=== PATIENT | male | born 1925 | race Caucasian/White ===

== ENCOUNTER 2016-02-23 14:56 | Emergency (ER) | payer MEDICARE ==
[~2016-02-23 14:56] MED LIST: ASPIRIN EC81 M1 PO; ASPIRIN81 M4 PO; EYE VITAMIN-MI1 EACH PO; FUROSEMIDE40 M1 PO; LEVOTHYROXINE50 MCG PO; LISINOPRIL40 M1 PO; LISINOPRIL5 M1 PO; METOPROLOL TART25 M1 PO; MIDODRINE HCL2.5 M1 PO; MIRALAX119 GM PO; RESTASIS1 EACH OPH; SPIRONOLACTONE25 M1 PO; SYNTHROID25 MCG PO; VITAMIN B-121000 MC3 PO; VITAMIN D31000 UNI2 PO
[2016-02-23 15:58] LABS: ABSOLUTE BASOPHIL COUNT 0 /CUMM (0.0-0.2); ABSOLUTE EOSINOPHIL COUNT 0.4 /CUMM (0.0-0.7); ABSOLUTE GRANULOCYTE CT 6.5 /CUMM (1.4-6.5); ABSOLUTE LYMPH COUNT 0.6 /CUMM (1.2-3.4); ABSOLUTE MONOCYTE COUNT 0.6 /CUMM (0.10-0.60); BASOPHIL % 0.3 % (0.0-2.0); EOSINOPHIL % 4.7 % (0-5); GRANULOCYTE % 80.6 % (42.2-75.2); HEMATOCRIT 30.9 % (42-52); MEAN CORPUSCULAR HGB 27.4 PG (27.0-31.0); MEAN CORPUSCULAR HGB CONC 32.7 G/DL (33.0-37.0); MEAN CORPUSCULAR VOLUME 83.7 FL (80.0-94.0); MEAN PLATELET VOLUME 6.8 FL (7.4-10.4); PLATELET COUNT 266 /CUMM (130-400); RBC DISTRIBUTION WIDTH 20.2 % (11.5-14.5); RED BLOOD CELL CT 3.69 /CUMM (4.70-6.10); WHITE BLOOD CELL COUNT 8.1 /CUMM (4.8-10.8)
--- NOTE | 2016-02-23 16:01 | ED GENERAL ADULT ---
History of Present Illness General Chief Complaint: General Adult Stated Complaint: SENT IN FOR ABNORMAL BLOOD WORK Source: patient, family, old records Exam Limitations: no limitations Reconcile Medications Aspirin (Aspirin*) 81 MG TAB.CHEW 1 TAB PO DAILY heart health Cholecalciferol (Vitamin D3) 1,000 UNIT TABLET 2,000 IU PO DAILY bones Cyanocobalamin (Vitamin B-12) 1,000 MCG TABLET 1 TAB PO DAILY SUPPLEMENT ( Reported) Cyclosporine (Restasis) 1 EACH DROPERETTE 1 GTT OPH BID EYES (Reported) Levothyroxine Sodium 50 MCG TABLET 1 TAB PO DAILY THYROID Midodrine HCl 2.5 MG TABLET 2 TAB PO 0800,1200,1600 low blood pressure Polyethylene Glycol 3350 (Miralax) 17 GRAM/DOSE POWDER 17 GM PO DAILY constipation Vit A/C/E AC/Znox/Cupric Oxide (Eye Vitamin-Minerals Tablet) 1 EACH TABLET 1 TAB PO DAILY SUPPLEMENT (Reported) Triage Note: PER HAD PARACENTIS 2 DAYS AGO,CALLED BY DR TODAY FOR HIGH POTASSIUM DONE YESTERDAY. EKG AND LABS DONE FROM TRIAGE PT JAUNDICE PER NORM. Triage Nurses Notes Reviewed? 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 Patient receive echocardiogram noted ejection fraction of 50 -60%. Patient was discharged on February 14 in which patient states he was in his normal state of health receive a paracentesis outpatient 2 days ago out up with his primary care Paulo Win MD yesterday received outpatient blood work and was Paulo Win MD call patient today for concerns of significant elevated potassium. Patient currently is asymptomatic denies any fever, chills, abdominal pain nausea vomiting chest pain arm and jaw pain paresthesia (MARY ANN BARGER) Vital Signs & Intake/Output Vital Signs & Intake/Output Vital Signs Date Time Temp Pulse Resp B/P Pulse O2 O2 Flow FiO2 Ox Delivery Rate 02/22 1835 54 20 152/100 100 Room Air 02/22 1611 100 Room Air Room Air 02/22 1611 53 20 100 Room Air 02/22 1512 96.8 20 124/74 Allergies Coded Allergies: NO KNOWN ALLERGIES (02/23/16) (FABY WALKER,DULCE Yepez) Past History Travel History Traveled to [place] past 21 day No Medical History Any Pertinent Medical History? see below for history Neurological: vertigo EENT: cataracts, hearing loss (postop) Cardiovascular: diastolic CHF, hypertension, hyperlipidemia, TR with elevated RV pressure RBBB old antinf [place] by EKG with ? 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 . FH: hepatic cirrhosis BROTHER, ; Cause: Alcoholic cirrhosis. FATHER (fxd neck). , Age 47; Cause: Fall. MOTHER, , Age 70; Cause: Fall. Hx Contributory? No (MAYR ANN BARGER) Review of Systems Review of Systems Constitutional: Reports: no symptoms. EENTM: Reports: no symptoms. Respiratory: Reports: no symptoms. Cardiovascular: Reports: no symptoms. GI: Reports: no symptoms. Genitourinary: Reports: no symptoms. Musculoskeletal: Reports: no symptoms. Skin: Reports: no symptoms. Neurological/Psychological: Reports: no symptoms. Hematologic/Endocrine: Reports: no symptoms. Immunologic/Allergic: Reports: no symptoms. All Other Systems: Reviewed and Negative (MAYR ANN BARGER) Physical Exam Physical Exam General Appearance: no apparent distress, obese Comments: HEENT: Normal EENT exam, extraocular motion intact, no nystagmus. Pupils equally round and reactive to light and accommodation. Nose is atraumatic. External auditory canal and Tympanic membranes clear. Pharynx normal. No swelling or edema. Neck: Supple, no lymphadenopathy, normal range of motion without pain or tenderness Back: Nontender, no CVA tenderness. Cardiovascular: Regular rate and rhythms no murmurs rubs or gallops, normal JVP Respiratory: Chest nontender. No respiratory distress.breath sounds clear to auscultation bilaterally Abdomen: Soft, nontender nondistended, no appreciable organomegaly. Normal bowel sounds. No ascites Extremity: No edema, no calf tenderness to palpation, normal and equal pulses. Neuro: Alert oriented x3, motor sensory normal, cranial nerves II through XII grossly intact. Skin: No appreciable rash on exposed skin, skin is warm and dry. Psych: Mood and affect is normal, memory and judgment is normal. Core Measures ACS in differential dx? Yes CVA/TIA Diagnosis: No Severe Sepsis Present: No Septic Shock Present: No (MARY ANN BARGER) Progress Differential Diagnoses I considered the following diagnoses in my evaluation of the patient: [ Myocardial infarction, electrolyte abnormality, EKG abnormalities,] Diagnostic Imaging: Viewed by Me: Radiology Read. CXR Impression: no acute abnormality, no infiltrates Initial ED EKG: NSR 53 BPM, RBBB Prior EKG: unchanged Comments: PATIENT: EVE SANTILLAN PRESENT AGE: 89 PATIENT ACCOUNT NO: [id number] : [birth year] LOCATION: [facility] ORDERING PHYSICIAN: MAYR ANN GREENE SERVICE DATE: 02/23/16 EXAM TYPE: RAD - XRY-PORTABLE CHEST XRAY EXAMINATION: XR PORTABLE CHEST CLINICAL INFORMATION: Elevated troponin COMPARISON: 02/09/2016 TECHNIQUE: Portable view of the chest was obtained. FINDINGS: Cardiac leads overlie the chest. Low lung volumes. This results in the appearance of a retrocardiac opacity, likely projectional. No definite consolidation. No edema or effusion. No pneumothorax. The cardiomediastinal silhouette remains prominent. Degenerative changes at the shoulders. IMPRESSION: Low lung volumes with no focal abnormality. (MARY ANN BARGER) Plan of Care: Orders Procedure Date/time Status Telemetry/Metal Wire Technician 02/22 1601 Active Add-on Test (ER Only) 02/22 1600 Active MAGNESIUM 02/22 1528 Complete DIRECT BILIRUBIN 02/22 1528 Complete TROPONIN LEVEL 02/22 1509 Complete COMPREHENSIVE METABOLIC PANEL 02/22 1509 Complete CBC WITHOUT DIFFERENTIAL 02/22 1509 Complete EKG 02/22 1500 Active Laboratory Tests 02/23/16 1528: Anion Gap 13, Estimated GFR 36 L, BUN/Creatinine Ratio 28.3 H, Glucose 105 H, Calcium 8.3 L, Magnesium 2.3, Total Bilirubin 0.5, Direct Bilirubin 0.5 H, AST 26, ALT 35, Alkaline Phosphatase 89, Troponin I 0.19 *H, Total Protein 6.0 L, Albumin 3.1 L, Globulin 2.9, Albumin/Globulin Ratio 1.1, CBC w Diff NO MAN DIFF REQ, RBC 3.69 L, MCV 83.7, MCH 27.4, RDW 20.2 H, MPV 6.8 L, Gran % 80.6 H, Lymphocytes % 7.4 L, Monocytes % 7.0, Eosinophils % 4.7, Basophils % 0.3, Absolute Granulocytes 6.5, Absolute Lymphocytes 0.6 L, Absolute Monocytes 0.6, Absolute Eosinophils 0.4, Absolute Basophils 0, PUBS MCHC 32.7 L 02/23/16 1512: Total Bilirubin Cancelled, Direct Bilirubin Cancelled, AST Cancelled, ALT Cancelled, Alkaline Phosphatase Cancelled, Total Protein Cancelled, Albumin Cancelled Patient presents to the emergency room with no symptoms has no changes in EKG no concerns of ischemia on EKG potassium was normal, patient had a 0.19 troponin. I discussed patient and EKG findings and labs with cardiology is Dk Pollock MD in which since patient has no symptoms no EKG changes and chronic elevated troponins that he can be safely discharged and follow up in office. I discussed disposition and plan with Dr. Torres who agrees. Upon discharge patient looks well no apparent distress and denies any cardiovascular symptoms at this time. Patient was on court monitor and noted to be normal sinus rhythm It is noted through old records the patient has a chronic history of elevated troponin Patient's all blood work was unremarkable compared to previous blood work\\ Chest x-ray was unremarkable patient has no symptoms upon discharge patient was strongly advised to follow up with primary care doctor and wardrobe manager as directed Patient was given copies of blood work for follow-up (LON GREENE,MARY ANN) Departure Departure Disposition: HOME OR SELF CARE Condition: Stable Clinical Impression Primary Impression: Elevated troponin Referrals: CHAYITO WALKER,PAULO Valles (PCP/Family) Additional Instructions: As discussed if symptoms worsen or if he develop any new concerning symptom return to emergency room immediately. Follow-up with your primary care doctor tomorrow. Please provide them with the labs printed out for you. Departure Forms: Customer Survey General Discharge Information (MARY ANN BARGER) PA/BOX HINGE AND LOCK ATTACHER Co-Sign Statement Statement: ED Attending supervision documentation- [X] I saw and evaluated the patient. I have also reviewed all the pertinent lab results and diagnostic results. I agree with the findings and the plan of care as documented in the PA's/BOX HINGE AND LOCK ATTACHER's documentation. [] I have reviewed the ED Record and agree with the PA's/BOX HINGE AND LOCK ATTACHER's documentation. [] Additions or exceptions (if any) to the PAs/BOX HINGE AND LOCK ATTACHER's note and plan are summarized below: [] (FABY WALKER,DULCE Yepez) Critical Care Note Critical Care Note Critical Care Time: non-applicable (MARY ANN BARGER)
--- NOTE | 2016-02-23 16:52 | RADIOLOGY REPORT ---
EXAMINATION: XR PORTABLE CHEST CLINICAL INFORMATION: Elevated troponin COMPARISON: 02/09/2016 TECHNIQUE: Portable view of the chest was obtained. FINDINGS: Cardiac leads overlie the chest. Low lung volumes. This results in the appearance of a retrocardiac opacity, likely projectional. No definite consolidation. No edema or effusion. No pneumothorax. The cardiomediastinal silhouette remains prominent. Degenerative changes at the shoulders. IMPRESSION: Low lung volumes with no focal abnormality.
[2016-02-23 18:35] VITALS: BP 152/100
== END 2016-02-23 18:41 ==
LOC: ERH 14:56
PROVIDERS: Emergency Medicine
DX: R77.8 Other specified abnormalities of plasma proteins (principal); N18.9 Chronic kidney disease, unspecified; I10 Essential (primary) hypertension; I50.9 Heart failure, unspecified
CPT/HCPCS: 93005; 93010

== ENCOUNTER 2016-05-29 16:34 | Emergency (ER) | payer MEDICARE, OTHER ==
[~2016-05-29] VITALS: Ht 152.4 cm; Wt 74.4 kg
[2016-05-29] MEDS ORDERED: CLOBETASOL PROP15 G1 TOP (18:27)
[2016-05-29] MEDS ORDERED: LEVOTHYROXINE100 MC1 PO (18:27)
[2016-05-29] MEDS ORDERED: DOXYCYCLINE HY100 M2 PO (18:27)
[2016-05-29] MEDS ORDERED: BETAMETHASONE D15 G1 TOP (18:28)
--- NOTE | 2016-05-29 19:20 | ED SKIN/ALLERGY COMPLAINT ---
History of Present Illness General Chief Complaint: Hand or Wrist Injury Stated Complaint: PT HANDS ARE BURNING, ITCHING FOR 2DYS Source: patient Exam Limitations: no limitations Vital Signs & Intake/Output Vital Signs & Intake/Output Vital Signs Date Time Temp Pulse Resp B/P Pulse O2 O2 Flow FiO2 Ox Delivery Rate 05/29 1654 98.8 82 20 119/80 98 Room Air Allergies Coded Allergies: No Known Allergies (05/29/16) Reconcile Medications Betamethasone Dipropionate 0.05 % OINT...G. 1 AYAAN TOP BID WOUNDS (Reported) Cholecalciferol (Vitamin D3) 1,000 UNIT TABLET 2,000 IU PO DAILY bones Clobetasol Propionate 0.05 % OINT...G. 1 AYAAN TOP BID WOUNDS (Reported) apply to affected area(s) Cyanocobalamin (Vitamin B-12) 1,000 MCG TABLET 1 TAB PO DAILY SUPPLEMENT ( Reported) Diclofenac Sodium (Voltaren) 1 % GEL..GRAM. 1 GM TOP 4 TIMES/DAY HAND PAIN/ RASH apply to affected area(s) Doxycycline Hyclate 100 MG CAPSULE 1 CAP PO BID WOUNDS (Reported) Levothyroxine Sodium 100 MCG TABLET 1 TAB PO DAILY THYROID (Reported) Triamcinolone Acetonide 0.1 % OINT...G. 1 AYAAN TOP BID PRN RASH apply to affected area(s) 0.1% Vit A/C/E AC/Znox/Cupric Oxide (Eye Vitamin-Minerals Tablet) 1 EACH TABLET 1 TAB PO DAILY SUPPLEMENT (Reported) Triage Note: TRIAGE: PT TO ER C/C BILATERAL HAND PAIN AND REDNESS X COUPLE WEEKS, PAIN IS INTERMITTENT. ALSO REPORTS ITCHING X 2 DAYS. Triage Nurses Notes Reviewed? yes HPI: Patient presents for evaluation of a bilateral redness and pain of the hands that began a week to 10 days ago. Patient denies any known inciting event or exposure. Rash has been constant and nothing seems to make it better. It is located over the knuckles and the second and third fingers of both hands. It becomes painful intermittently. Past History Travel History Traveled to [place] past 21 day No Medical History Any Pertinent Medical History? see below for history Neurological: vertigo EENT: cataracts, hearing loss (postop) Cardiovascular: diastolic CHF, hypertension, hyperlipidemia, TR with elevated RV pressure RBBB old antinf [place] by EKG with ? 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 . FH: hepatic cirrhosis BROTHER, ; Cause: Alcoholic cirrhosis. FATHER (fxd neck). , Age 47; Cause: Fall. MOTHER, , Age 70; Cause: Fall. Hx Contributory? No Review of Systems Review of Systems Constitutional: Reports: no symptoms. EENTM: Reports: no symptoms. Respiratory: Reports: no symptoms. Cardiovascular: Reports: no symptoms. GI: Reports: no symptoms. Genitourinary: Reports: no symptoms. Musculoskeletal: Reports: no symptoms. Skin: Reports: see HPI. Neurological/Psychological: Reports: no symptoms. Hematologic/Endocrine: Reports: no symptoms. Immunologic/Allergic: Reports: no symptoms. All Other Systems: Reviewed and Negative Physical Exam Physical Exam General Appearance: SEE BELOW Comments: Gen.: Well-nourished, well-developed, no acute respiratory distress. Head: Normocephalic, atraumatic. Eyes: Normal inspection bilaterally Ears: Normal inspection bilaterally Nose: Normal inspection Throat/mouth : Moist mucosa Neck: Supple, full range of motion, no goiter Heart: Regular rate and rhythm, no murmurs rubs or gallops Lungs: Clear to auscultation bilaterally with normal air entry Chest: Nontender Back: Normal range of motion Abdomen: Soft, nontender, nondistended, normal bowel sounds Extremities: Normal range of motion grossly, equal radial pulses, no cyanosis clubbing or edema Neurologic: Cranial nerves grossly intact, speech is clear Skin: warm and dry, no apparent rashes, hyperemia of the hands with mild warmth in a symmetrical pattern over the dorsum of the hands Psychiatric: Calm, cooperative, no apparent delusions or hallucinations Progress Differential Diagnosis: contact dermatitis, SUN EXPOSURE, SUN SENSITIVITY SECONDARY TO ANTIBIOTICS Plan of Care: Avoid sun exposure, Voltaren and triamcinolone creams. PCP follow-up. Comments: Given the very symmetrical nature of this rash (the rash is a mirror image on both hands) so I suspect environmental exposure or contact dermatitis.The patient is currently taking doxycycline placing him at increased risk of sun sensitivity. He has no discomfort with movement of the knuckle so I doubt arthritis. He has been on doxycycline so I doubt infection. Plan steroid cream and anti-inflammatory ointment. Departure Departure Disposition: HOME OR SELF CARE Condition: Stable Clinical Impression Primary Impression: Rash of hands Referrals: CHAYITO WALKER,MIMI Valles (PCP/Family) Additional Instructions: Steroid cream and diclofenac ointment as prescribed. Follow-up with your primary care doctor on Saturday for reevaluation. Return if any concerns or sudden worsening. Departure Forms: Customer Survey General Discharge Information Prescriptions: Current Visit Scripts Triamcinolone Acetonide 1 AYAAN TOP BID PRN RASH #1 TUBE apply to affected area(s) 0.1% Diclofenac Sodium (Voltaren) 1 GM TOP 4 TIMES/DAY #1 TUBE apply to affected area(s)
[2016-05-29] MEDS ORDERED: VOLTAREN100 GM TOP (19:35)
[2016-05-29] MEDS ORDERED: TRIAMCINOLONE A15 G3 TOP (19:35)
[2016-05-29 19:44] VITALS: BP 117/77
== END 2016-05-29 19:46 ==
LOC: ERH 16:34
DX: R21 Rash and other nonspecific skin eruption (principal)

== ENCOUNTER 2016-06-21 15:48 | Inpatient (IN) | payer MEDICARE, OTHER ==
[~2016-06-21] VITALS: Ht 152.4 cm; Wt 76.2 kg
[~2016-06-21 15:48] MED LIST changes: +BETAMETHASONE D15 G1 TOP; +CLOBETASOL PROP15 G1 TOP; +DOXYCYCLINE HY100 M2 PO; +LEVOTHYROXINE100 MC1 PO; +TRIAMCINOLONE A15 G3 TOP; +VOLTAREN100 GM TOP
--- NOTE | 2016-06-21 15:57 | ED GENERAL ADULT ---
History of Present Illness General Chief Complaint: Lower Extremity Problems Stated Complaint: LEG SWELLING, CONCERN FOR DVT Source: patient, family Exam Limitations: no limitations Vital Signs & Intake/Output Vital Signs & Intake/Output Vital Signs Date Time Temp Pulse Resp B/P B/P Pulse O2 O2 Flow FiO2 Mean Ox Delivery Rate 06/21 1629 Room Air 06/21 1614 98.6 85 18 120/62 98 Room Air Allergies Coded Allergies: No Known Allergies (05/29/16) Reconcile Medications Betamethasone Dipropionate 0.05 % OINT...G. 1 AYAAN TOP BID WOUNDS (Reported) Cholecalciferol (Vitamin D3) 1,000 UNIT TABLET 2,000 IU PO DAILY bones Clobetasol Propionate 0.05 % OINT...G. 1 AYAAN TOP BID WOUNDS (Reported) apply to affected area(s) Cyanocobalamin (Vitamin B-12) 1,000 MCG TABLET 1 TAB PO DAILY SUPPLEMENT ( Reported) Diclofenac Sodium (Voltaren) 1 % GEL..GRAM. 1 GM TOP 4 TIMES/DAY HAND PAIN/ RASH apply to affected area(s) Doxycycline Hyclate 100 MG CAPSULE 1 CAP PO BID WOUNDS (Reported) Levothyroxine Sodium 100 MCG TABLET 1 TAB PO DAILY THYROID (Reported) Minocycline HCl 100 MG CAPSULE 1 CAP PO BID ANTIBIOTIC (Reported) Silver Sulfadiazine (Silvadene) 1 % CREAM..G. 1 AYAAN TOP DAILY WOUNDS ON LEGS (Reported) apply to affected area(s) Triamcinolone Acetonide 0.1 % OINT...G. 1 AYAAN TOP BID PRN RASH apply to affected area(s) 0.1% Vit A/C/E AC/Znox/Cupric Oxide (Eye Vitamin-Minerals Tablet) 1 EACH TABLET 1 TAB PO DAILY SUPPLEMENT (Reported) Triage Nurses Notes Reviewed? yes Onset: Abrupt Duration: unknown duration Timing: unknown HPI: 06/21/16 6 PM 89-year-old male presents to the emergency department complaining of severe left lower extremity pain. According to the patient and his [id number] he's had severe pain to his left lower extremity over the past 48 hours. He's had ongoing lower extremity pain and also blistering lesions to the lower extremities for some time. He recently completed a course of doxycycline. He's also had chronically elevated troponins. He also has a history of a nonsustained wide complex tachycardia. He does admit to some intermittent shortness of breath and tremors and chills today. The onset of the symptoms was abrupt, the duration has been for 48 hours, the severity is significant as his symptoms required him to come to the emergency department for care. He is not a robust historian and so some of the history was appreciated from Dr. Golden's prior note listed below PRIOR NOTE BY DR GOLDEN BELOW APPRECIATED: 89-year-old male with numerous comorbidities, including HTN/vertigo/[place] (deaf on right, hearing aid on left)/diastolic CHF/HLD/CKD/anemia (no transfusions of PRBC in [facility] computer)/hypoT4/nonsustained wide complex tachycardia with periodic bradycardia (Toprol held)/remote history of Lyme disease, with past history of mild alcohol and recurrent ascites over the past year which has been attributed to CHF based on prior ascitic taps, which revealed SAAG > 1.1 with BF protein > 2.5. Previous ascitic cytology has been negative. There is no history of SBP. 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 *11/20/2004: Liver biopsy of "mass"- fibrous tissue with pigmented macrophages, consistent with old hemorrhage and adjacent blood clot. *There are no records of any EGD regarding potential varices. The patient has required periodic large volume abdominal taps for relief of his symptoms. He also has intermittent elevated troponins. Family history significant for 2 brothers dying of alcohol-related disease. There is no family history of any additional GI diseases or GI malignancy. The patient is followed as an outpatient for GI by Dr. Pelayo. The patient's diuretics were limited by CKD. 12/22/2015: Echocardiogram- Normal left ventricular systolic function 55-60%. No segmental wall motion abnormalities. No significant pericardial effusion. Moderate left ventricular hypertrophy *suggesting infiltrative disease. Biatrial enlargement. Mild MR. Moderate TR. Elevated RV pressure 40 mm Hg (previous reversal of flow in hepatic vein, suggesting significant TR). Uncertain rythym. Cannot comment on diastolic function. 12/22/2015: RUQ sono- Limited exam. *There are 2 focal liver lesions. The larger appears unchanged since 12/14/14. The smaller in the left lobe of the liver was either not present or not well demonstrated Nodular liver with ascites raises the possibility of cirrhosis. Clinical circumstances will determine appropriate subsequent management. Consider serial ultrasound to assess for stability if no intervention is undertaken Past History Medical History Any Pertinent Medical History? 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 & adjacent blood clot Renal: chronic kidney disease Musculoskeletal: falls Psychiatric: NONE Endocrine: NONE Blood Disorders: anemia Cancer(s): NONE STUMMEL SELECTOR/Reproductive: NONE Other Medical Hx: Hx Lyme disease History of MRSA: No History of VRE: No History of CDIFF: No Surgical History Surgical History: cataract removal Psychosocial History Who do you live with Family Services at Home None What is your primary language Chinese Family History Family History, If Any: BROTHER (EtOH cirrhosis). . FH: hepatic cirrhosis BROTHER, ; Cause: Alcoholic cirrhosis. FATHER (fxd neck). , Age 47; Cause: Fall. MOTHER, , Age 70; Cause: Fall. Hx Contributory? No Review of Systems Review of Systems Constitutional: Reports: chills. Denies: fever. EENTM: Reports: no symptoms. Respiratory: Reports: short of breath. Cardiovascular: Denies: chest pain. GI: Denies: abdominal pain. Genitourinary: Reports: no symptoms. Musculoskeletal: Reports: see HPI. Skin: Reports: see HPI. Neurological/Psychological: Reports: no symptoms. Hematologic/Endocrine: Reports: bruising. Physical Exam Physical Exam General Appearance: alert, awake, anxious, moderate distress Head: atraumatic, normal appearance Eyes: Bilateral: normal appearance, PERRL, EOMI. Ears, Nose, Throat: normal pharynx, normal ENT inspection Neck: normal inspection, supple Respiratory: no respiratory distress, decreased breath sounds Cardiovascular: irregularly irregular Peripheral Pulses: 2+ dorsalis pedis (R), 2+ dorsalis pedis (L) Gastrointestinal: soft, non-tender (pleurex cath RLQ) Back: decreased range of motion Extremities: pedal edema, swelling, tenderness Neurologic/Psych: no motor/sensory deficits, awake, alert, oriented x 3 Skin: rash (HAND AND LEGS) Comments: His examination is significant for bilateral lower extremity edema. He also has angry erythema to both hands and the lower extremities. He has blistering lesions to both lower extremities and there is significant shiny erythema to the left lower extremity extending into the ankle. According to the [id number] the redness and swelling to the left lower extremity is much more pronounced over the last 48 hours and he's been complaining of severe pain and inability to walk. Ultrasound and arterial studies of the left lower extremity are pending. He does have palpable bilateral dorsalis pedis pulses - there are faint. Capillary refill is equal in both lower extremities and both lower extremities are normal in temperature when I palpate them. Core Measures ACS in differential dx? Yes CVA/TIA Diagnosis: No Severe Sepsis Present: No Septic Shock Present: No Progress Differential Diagnoses I considered the following diagnoses in my evaluation of the patient: [DVT, acute arterial occlusion, cellulitis, necrotizing fasciitis, osteomyelitis, acute coronary syndrome, atrial fibrillation] Plan of Care: Orders Procedure Date/time Status Heart Healthy Diet 06/22 B Active ED Holding Orders 06/21 184 Active Admit to inpatient 06/21 184 Active Vital Signs 06/21 184 Active Code Status 06/21 184 Active Add-on Test (ER Only) 06/21 183 Active BLOOD CULTURE 06/21 183 Active EKG 06/21 1812 Active US-EXT BILAT VENOUS DOPPLER 06/21 165 Active US-DUPLEX SCAN LOWER EXT ARTER 06/21 165 Active TROPONIN LEVEL 06/21 165 Complete COMPREHENSIVE METABOLIC PANEL 06/21 165 Complete CBC WITHOUT DIFFERENTIAL 06/21 1653 Complete Current Medications Sig/Bennie Start time Last Medication Dose Stop Time Status Admin Ampicillin Sodium/ 1,500 MG ONCE ONE 06/21 1844 UNir Sulbactam Sodium 06/21 191 (Unasyn) Sodium Chloride 100 ML (Normal Saline 0.9%) Laboratory Tests 06/21/16 1709: Anion Gap 10, Estimated GFR 30 L, BUN/Creatinine Ratio 26.7 H, Glucose 132 H, Calcium 7.7 L, Total Bilirubin 0.6, AST 21, ALT 36, Alkaline Phosphatase 107, Troponin I 0.32 *H, Total Protein 5.7 L, Albumin 2.3 L, Globulin 3.4, Albumin/ Globulin Ratio 0.7 L, CBC w Diff NO MAN DIFF REQ, RBC 3.66 L, MCV 80.8, MCH 25.8 L, RDW 20.8 H, MPV 6.4 L, Gran % 91.9 H, Lymphocytes % 2.1 L, Monocytes % 4.5, Eosinophils % 0.8, Basophils % 0.7, Absolute Granulocytes 8.5 H, Absolute Lymphocytes 0.2 L, Absolute Monocytes 0.4, Absolute Eosinophils 0.1 , Absolute Basophils 0.1, PUBS MCHC 32.0 L Microbiology 06/21 1838 BLOOD: Blood Culture - ORD 06/21 1838 BLOOD: Blood Culture - ORD Initial ED EKG: AFIB, WIDE COMPLEX TACHYCARDIA Prior EKG: changed (RHYTHM) Departure Departure Disposition: STILL A PATIENT Condition: Stable Clinical Impression Primary Impression: Cellulitis Secondary Impressions: Atrial fibrillation, Elevated troponin Referrals: CHAYITO WALKER,MIMI Valles (PCP/Family) Departure Forms: Customer Survey General Discharge Information Admission Note Spoke With: RENATA DAO MD Documentation of Exam: Documentation of any treatments & extenuating circumstances including Concerns Regarding Discharge (functional status, medication knowledge or non-compliance, living conditions, etc.) that warrant an admission rather than observation: [The patient needs admission for IV antibiotics, cardiology consultation, serial troponins, follow-up of the ultrasound and arterial studies of the lower extremity] Critical Care Note Critical Care Note Critical Care Time: non-applicable
[2016-06-21] MEDS ORDERED: SILVADENE20 GM TOP (16:38)
[2016-06-21] MEDS ORDERED: MINOCYCLINE HC100 M1 PO (16:38)
[2016-06-21 17:20] LABS: ABSOLUTE BASOPHIL COUNT 0.1 /CUMM (0.0-0.2); ABSOLUTE EOSINOPHIL COUNT 0.1 /CUMM (0.0-0.7); ABSOLUTE GRANULOCYTE CT 8.5 /CUMM (1.4-6.5); ABSOLUTE LYMPH COUNT 0.2 /CUMM (1.2-3.4); ABSOLUTE MONOCYTE COUNT 0.4 /CUMM (0.10-0.60); BASOPHIL % 0.7 % (0.0-2.0); EOSINOPHIL % 0.8 % (0-5); HEMATOCRIT 29.6 % (42-52); MEAN CORPUSCULAR HGB 25.8 PG (27.0-31.0); MEAN CORPUSCULAR VOLUME 80.8 FL (80.0-94.0); MEAN PLATELET VOLUME 6.4 FL (7.4-10.4); PLATELET COUNT 214 /CUMM (130-400); RBC DISTRIBUTION WIDTH 20.8 % (11.5-14.5); RED BLOOD CELL CT 3.66 /CUMM (4.70-6.10); WHITE BLOOD CELL COUNT 9.2 /CUMM (4.8-10.8)
--- NOTE | 2016-06-21 17:26 | RADIOLOGY REPORT ---
EXAMINATION: XR PORTABLE CHEST CLINICAL INFORMATION: Anasarca. COMPARISON: Chest x-ray 04/11/2016. TECHNIQUE: Portable frontal view of the chest was obtained. FINDINGS: The lungs are hypoinflated, without focal airspace consolidation. No pleural effusions or pneumothoraces are identified. Cardiomediastinal contours are stable and there is stable prominence of the cardiac silhouette, without overt pulmonary edema. Soft tissues are unremarkable. No acute osseous abnormality is identified. IMPRESSION: No acute pulmonary process. Pulmonary hypoinflation and bronchovascular crowding. Stable prominence of the cardiac silhouette, without overt pulmonary edema.
[2016-06-21 17:34] LABS: GRANULOCYTE % 91.9 % (42.2-75.2)
--- NOTE | 2016-06-21 20:03 | ULTRASOUND REPORT ---
EXAMINATION: US TRIPLEX OF LOWER EXTREMITIES, BILATERAL CLINICAL INFORMATION: Edema. Pain. Swelling. Inflammation. Skin changes. COMPARISON: None TECHNIQUE: Color-flow triplex imaging with spectral analysis and compression Doppler were performed on the lower extremities. FINDINGS: Respiratory variation, normal compression and augmented flow are noted throughout the lower extremities. The visualized common femoral vein, superficial femoral vein, profunda femoral vein, popliteal vein and midcalf peroneal and posterior tibial venous segments show no evidence of deep venous thrombosis. There is no Pearson's cyst. There is subcutaneous edema both lower extremities. IMPRESSION: Normal triplex scan without evidence of deep venous thrombosis involving the lower extremities.
--- NOTE | 2016-06-21 20:17 | History & Physical ---
TABITHA GAYLE MD 06/21/16 2017: General Information and HPI MD Statement: I have seen and personally examined EVE SANTILLAN and documented this H&P. The patient is a 89 year old M who presented with a patient stated chief complaint of lower extremity swelling and pain. Source of Information: patient, old records Exam Limitations: poor historian History of Present Illness: Mr. 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 Due to the fact that patient is a poor historian, some history is obtained from patient's daughter-in -law who is at bedside. Of note, patient lives with his daughter and there is minimal/no communication between the daughter and [id number], thus some recent history is difficult to obtain. The patient is noted to have recent increase in bilateral lower extremity swelling and new-onset left lower extremity erythema, mostly located overlaying the medial malleolus, that is associated with significant, 10/10 pain. Patient does have chronic wounds of bilateral legs which were previously attributed to bullous pemphigoid and Eve notes that he frequently wakes up with his sheets saturated due to leakage of serous fluid from these chronic wounds. Noted associated symptoms prior to admission included shortness of breath, chills, tremors, bilateral hand erythema with blistering and lower extremity blisters which were precently treated with doxycycline. Past surgical history is significant for cataract removal. Family history is significant for a brother with EOTH cirrhosis. Patient denied previous smoking, admits to occasional alcohol use and denied illicit drug use. He lives at home with his and ambulates with the use of 2 canes. Patient previously followed Dr. Chinchilla as his professional fee coder but now sees another professional fee coder. He had previously tried clobetasol, doxycycline and minocycline for his bullous pemphigoid. He also follows with Dr. 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 Allergies/Medications Allergies: Coded Allergies: No Known Allergies (05/29/16) Home Med list Betamethasone Dipropionate 0.05 % OINT...G. 1 AYAAN TOP BID WOUNDS (Reported) Cholecalciferol (Vitamin D3) 1,000 UNIT TABLET 2,000 IU PO DAILY bones Clobetasol Propionate 0.05 % OINT...G. 1 AYAAN TOP BID WOUNDS (Reported) apply to affected area(s) Cyanocobalamin (Vitamin B-12) 1,000 MCG TABLET 1 TAB PO DAILY SUPPLEMENT ( Reported) Diclofenac Sodium (Voltaren) 1 % GEL..GRAM. 1 GM TOP 4 TIMES/DAY HAND PAIN/ RASH apply to affected area(s) Doxycycline Hyclate 100 MG CAPSULE 1 CAP PO BID WOUNDS (Reported) Levothyroxine Sodium 100 MCG TABLET 1 TAB PO DAILY THYROID (Reported) Minocycline HCl 100 MG CAPSULE 1 CAP PO BID ANTIBIOTIC (Reported) Silver Sulfadiazine (Silvadene) 1 % CREAM..G. 1 AYAAN TOP DAILY WOUNDS ON LEGS (Reported) apply to affected area(s) Triamcinolone Acetonide 0.1 % OINT...G. 1 AYAAN TOP BID PRN RASH apply to affected area(s) 0.1% Vit A/C/E AC/Znox/Cupric Oxide (Eye Vitamin-Minerals Tablet) 1 EACH TABLET 1 TAB PO DAILY SUPPLEMENT (Reported) Compliance With Home Meds: UNKNOWN Past History Travel History Traveled to [place] past 21 day No Medical History Neurological: vertigo EENT: cataracts, hearing loss (postop) Cardiovascular: diastolic CHF, hypertension, hyperlipidemia, TR with elevated RV pressure RBBB old antinf NV by EKG with ? 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 & adjacent blood clot Renal: chronic kidney disease Musculoskeletal: falls Psychiatric: NONE Endocrine: NONE Blood Disorders: anemia Cancer(s): NONE IMPORT DISPATCHER/Reproductive: NONE Other Medical Hx: Hx Lyme disease History of MRSA: No History of VRE: No History of CDIFF: No Surgical History Surgical History: cataract removal Past Family/Social History Family History Relations & Conditions if any BROTHER (EtOH cirrhosis). . FH: hepatic cirrhosis BROTHER, ; Cause: Alcoholic cirrhosis. FATHER (fxd neck). , Age 47; Cause: Fall. MOTHER, , Age 70; Cause: Fall. Psychosocial History Where do you live? Home Who Do You Live With? spouse (dtr), child Services at Home: None Primary Language: Slovenian ETOH Use: denies use Illicit Drug Use: denies illicit drug use Living Will? no Power of Dairy Processing Supervisor/HCP? no Functional Ability ADLs Independent: dressing, eating, toileting, bathing. Ambulation: cane IADLs Independent: shopping, housework, finances, food prep, telephone, transportation , medication admin. Sexual History Sexually Active No Employment History Employment Retired Review of Systems Review of Systems Constitutional: Reports: chills, malaise. Denies: fever. EENTM: Denies: visual changes, nasal congestion. Cardiovascular: Reports: peripheral edema. Denies: chest pain, palpitations. Respiratory: Reports: short of breath. Denies: cough, sputum production. GI: Reports: vomiting (Vomited during interview). Denies: abdominal pain, constipation, diarrhea. Genitourinary: Denies: dysuria. Musculoskeletal: Reports: muscle pain (Left lower extremity >R). Skin: Reports: change in skin color, dryness, erythema, lesions, rash. Neurological/Psychological: Denies: confusion, headache. Hematologic/Endocrine: Denies: bleeding. Immunologic/Allergic: Denies: splenectomy. All Other Systems: Reviewed and Negative Exam & Diagnostic Data Last 24 Hrs of Vital Signs/I&O Vital Signs Date Time Temp Pulse Resp B/P B/P Pulse O2 O2 Flow FiO2 Mean Ox Delivery Rate 06/21 2200 97 Room Air 06/21 2136 97.7 56 18 112/56 96 06/21 2049 Room Air 06/22 2047 96.4 74 18 127/61 97 Room Air 06/21 1833 82 18 129/59 98 Room Air 06/21 1629 Room Air 06/21 1614 98.6 85 18 120/62 98 Room Air Intake & Output 06/22 0800 06/22 0000 06/21 1600 Intake Total 100 Output Total Balance 100 Intake, Oral 100 Patient 168 lb Weight Weight Reported by Patient Measurement Method Physical Exam General Appearance Alert, Oriented X3, Cooperative, No Acute Distress Skin Bilateral hands and bilateral lower extremities from cueva down with erythema and denuded blisters draining serous fluid. Left medial malleolus severe erythema Skin Temp/Moisture Exam: Warm/Dry HEENT Atraumatic, PERRLA, EOMI, Dry mucous membranes Neck Supple, No JVD Lymphatic Cervical nl Cardiovascular Irregularly irregular Lungs Normal Air Movement, Decreased breath sounds bilateral bases Abdomen +BS x 4, nontender to palpation Neurological Normal Speech, Strength at 5/5 X4 Ext, Normal Tone, Slightly lethargic during examination and questioning Extremities No Clubbing, No Cyanosis, 2-3+ bilateral lower extremity edema Vascular Pulses Symmetrical Last 24 Hrs of Labs/Jerel: Laboratory Tests 06/21/16 2310: Lactic Acid Pending, Troponin I Pending 06/21/16 1830: Lactic Acid 1.2 06/21/16 1709: Anion Gap 10, Estimated GFR 30 L, BUN/Creatinine Ratio 26.7 H, Glucose 132 H, Calcium 7.7 L, Total Bilirubin 0.6, AST 21, ALT 36, Alkaline Phosphatase 107, Troponin I 0.32 *H, Total Protein 5.7 L, Albumin 2.3 L, Globulin 3.4, Albumin/ Globulin Ratio 0.7 L, TSH &T3 &Free T4 Intrp Pending, CBC w Diff NO MAN DIFF REQ, RBC 3.66 L, MCV 80.8, MCH 25.8 L, RDW 20.8 H, MPV 6.4 L, Gran % 91.9 H , Lymphocytes % 2.1 L, Monocytes % 4.5, Eosinophils % 0.8, Basophils % 0.7, Absolute Granulocytes 8.5 H, Absolute Lymphocytes 0.2 L, Absolute Monocytes 0.4, Absolute Eosinophils 0.1, Absolute Basophils 0.1, PUBS MCHC 32.0 L 06/21/16 1100: Troponin I Cancelled Microbiology 06/22 2007 BLOOD: Blood Culture - RECD 06/21 183 BLOOD: Blood Culture - RECD Diagnostic Data EKG Results Atrial fibrillation, HR 74 bpm. CXR Results IMPRESSION: No acute pulmonary process. Pulmonary hypoinflation and bronchovascular crowding. Stable prominence of the cardiac silhouette, without overt pulmonary edema. Other Results Venous doppler: IMPRESSION: Normal triplex scan without evidence of deep venous thrombosis involving the lower extremities. Assessment/Plan Assessment: Mr. 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 Associated symptoms included shortness of breath, chills, and tremors. In the ED: Vital signs showed T 98.6, HR 85, RR 18, BP 120/62 and O2 saturation of 98% on room air. Labs were significant for WBC 9.2 with 91.9% granulocytes, H &H 9.4/29.6 (normocytic), Plt 214, Na 134, K 4.7, Cl 109, HCO3 16, BUN/cre 56/ 2.1 (baseline cre 1.8-2.2), Glu 132, lactate 1.2, trop 0.32. CXR showed pulmonary hypoinflation and bronchovascular crowding. Prominence of cardiac silhouette without overt edema. EKG showed atrial fibrillation with HR 74 bpm (confirmed with Dr. Nghia MD.) Patient is admitted to the telemetry floor and the following is the management: 1. Left lower extremity erythema and swelling * DDx includes cellulitis vs worsening bullous pemphigoid * Due to use of clobetasol, patient at risk for overlaying infection of chronic wounds * Patient given IV unasyn in the ED, we will continue this daily * Follow up cultures, monitor for fevers * Wound consult in AM * Consider derm consult for bullous pemphigoid * Elevate legs * Tylenol 650 mg PO Q6P for mild pain * Continue heparin SC for DVTP * LE DVT ruled out with negative doppler * Normal saline at 50 cc/h 2. New onset atrial fibrillation with normal heart rate * New-onset atrial fibrillation as compared to previous EKG showing NSR * Dr. Bebo MD consulted and confirmed EKG irregularly irregular; suggested starting patient on IV heparin drip (started after stool guiac tested and found to be negative) * Patient's HR well controlled, monitor on playground monitor * Follow up thyroid studies * Cardio consult in AM * F/U echocardiogram 3. Elevated troponins * Likely represent demand ischemia in setting of atrial fibrillation * Trend trops/EKG x 3 (11 pm, 6 am) * Cardio consult in AM * Continuous telemetry monitoring for arrythmias * Echocardiogram to assess cardiac function in setting of new onset atrial fibrillation 4. Stage 3 B CKD * Chronic renal dysfunction as noted on prior admission and prior lab studies * Continue NS at 50 cc/h * Monitor electrolytes and BEP daily FULL CODE DVTP: IV heparin drip Heart Healthy Diet Mild pain pathway As Ranked By This Provider Problem List: 1. Cellulitis 2. Atrial fibrillation 3. Rash of hands 4. Hypothyroid 5. Chronic kidney disease 6. CHF (congestive heart failure) 7. Chronic anemia 8. Renal insufficiency 9. HTN (hypertension) 10. Blister Core Measures/Miscellaneous Acute Coronary Syndrome ACS Diagnosis: No Cerebrovascular Accident CVA/TIA Diagnosis: No Congestive Heart Failure CHF Diagnosis: No Venous Thromboembolism VTE Risk Factors: Acute medical illness, Age > 40, CHF or Resp failure [facility] prophylaxis d/t: LE Deformity, LE Edema No VTE Pharm Prophylaxis d/t: No contraindications VTE Diagnosis: No VTE Type: NONE VTE Confirmed by (Test): NONE Severe Sepsis Severe Sepsis Present: No Septic Shock Septic Shock Present: No Miscellaneous Documentation Attending Case Discussed With: RENATA DAO MD Primary Care Physician: MIMI STRATTON MD Patient sees these Specialists Dr. Mcleod, dermatology Dr. Pelayo, gastroenterology Dr. Stratton, PCP Dr. Rodriguez, cardiology Level of Patient Care: Telemetry CATHLEEN WALKER,[facility] 06/22/16 0153: Resident Review Statement Resident Statement: examined this patient, discussed with graduate internship, agreed with graduate internship Other Findings: Problem List: * ? 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 Patient has already received IV 10 mg Cardizem and PO 60mg Cardizem in the ED. Start Cardizem 30 mg Q6 for now and can titrate as needed. * Trops EKG x 3 * Start Unasyn for possible cellulitis. Blood cultures. Wound consult. NS at 50 ml/hr x 2 bags * Please consult Dermatology in the AM regarding further management of bullous pemphigoid. * Continue home LT4 * Pain Management: Tylenol Q6P * DVT PPx: Heparin gtt * Code Status: Full Code. This information was given by the [id number]. Please confirm with daughter in the AM, if there has been any change in his code status. There seems to be some issues in the family dynamic. The patient is currently living with his daughter, who is estranged from the rest of the family. All his care is currently being transferred to other doctors, so the [id number] who is present at the time of this interview, was not able to give us uptodate information for the last 2 months. 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 Patient denies any complaints. Patient has chronic bilateral lower extremity wounds secondary to bullous pemphigoid. Vitals: Afebrile, HR, RR, blood pressure, O2 saturation in acceptable range. On exam: A O 3, cooperative, no acute distress, bilateral lower extremity and upper extremity edema and mild edema with denuded skin and blisters draining serous fluid, left lower extremity has worse redness. neck supple, mucosa moist, no focal neurological deficit, CVS: S1-S2, irregular RS: Clear to auscultate bilaterally. Abdomen: Soft, NT, ND, bowel sounds present, catheter present, no signs of inflammation or cellulitis. Labs: WBC 9.2, neutrophil 91%, hemoglobin 9.4, hematocrit 29.6, platelet 214, chloride 109, bicarbonate 16, BUN 56, creatinine 2.1, glucose 132, troponin 0.32 , albumin 2.3 EKG ? A. fib CXR: No acute pulmonary process. Pulmonary hypoinflation and bronchovascular crowding. Stable prominence of the cardiac silhouette, without overt pulmonary edema. Bilateral lower extremity Doppler:Normal triplex scan without evidence of deep venous thrombosis involving the lower extremities. A and P Patient comes with the mild worsening of left lower extremity swelling, erythematous on appearance, mild left shift, probably secondary cellulitis with underlying bullous pemphigoid. Patient's troponins elevated, has mild non-gap acidosis, unchanged creatinine and BUN. He was found to have A. fib, which is new finding as compared to previous EKGs probably precipitated by cellulitis. + Questionable left lower extremity cellulitis secondary to bullous pemphigoid + New-onset A. fib + Elevated troponin rule out ACS + History of recurrent ascites, CKD, cirrhosis, heart failure, HTN, HLD - Admit to telemetry - Continue heparin - If increased HR then consider starting Cardizem - Continue Unasyn for cellulitis - Blood culture - Trend troponin, serial EKGs - Adequate pain control - Trend lactate - Cardiology consult in a.m. - Wound care consult in a.m. - Check TSH
[2016-06-21 21:37] VITALS: BP 112/56
--- NOTE | 2016-06-22 07:01 | Admission Certification ---
Admission Certification Certification Statement - As attending physician, I certify that at the time of - admission, based on clinical presentation, severity of - symptoms, need for further diagnostic testing and - therapeutic interventions, and risk of adverse outcomes - without in-hospital treatment, in my clinical assessment, - this patient requires an acute hospital stay for a minimum - of two nights or longer. I have also considered psychsocial - factors such as support system, advanced age, financial - issues, cognitive issues, and failed out-patient treatments, - past re-admission history, safety of patient, and lack of - compliance as applicable. Specific rationale supporting this admission is: Possible cellulitis left lower extremity, elevated troponin, new-onset A. fib
[2016-06-22 07:53] LABS: ABSOLUTE BASOPHIL COUNT 0 /CUMM (0.0-0.2); ABSOLUTE EOSINOPHIL COUNT 0 /CUMM (0.0-0.7); ABSOLUTE GRANULOCYTE CT 9.8 /CUMM (1.4-6.5); ABSOLUTE LYMPH COUNT 0.5 /CUMM (1.2-3.4); ABSOLUTE MONOCYTE COUNT 0.5 /CUMM (0.10-0.60); BASOPHIL % 0 % (0.0-2.0); EOSINOPHIL % 0.3 % (0-5); HEMATOCRIT 28.6 % (42-52); MEAN CORPUSCULAR HGB CONC 31.8 G/DL (33.0-37.0); MEAN CORPUSCULAR VOLUME 81.6 FL (80.0-94.0); MEAN PLATELET VOLUME 6.6 FL (7.4-10.4); PLATELET COUNT 215 /CUMM (130-400); RBC DISTRIBUTION WIDTH 20.9 % (11.5-14.5); RED BLOOD CELL CT 3.51 /CUMM (4.70-6.10); WHITE BLOOD CELL COUNT 10.8 /CUMM (4.8-10.8)
[2016-06-22 08:20] VITALS: BP 108/52
--- NOTE | 2016-06-22 08:23 | ULTRASOUND REPORT ---
EXAMINATION: US-LEFT LOW EXTR ARTERIAL DOP CLINICAL INFORMATION: 89-year-old male with decreased dorsalis pedis pulse. Evaluate for PVD. COMPARISON: None TECHNIQUE: Real-time ultrasound and Doppler techniques (integrating B-mode 2-D vascular images, Doppler spectral analysis and color flow Doppler imaging) were utilized to interrogate the lower extremities. FINDINGS: Left lower extremity: Common femoral artery: 116 cm/sec; triphasic waveform Superficial femoral artery proximal: 101 cm/sec; triphasic waveform Superficial femoral artery mid portion: 32 cm/sec; monophasic waveform Superficial femoral artery distal: 48 cm/sec; monophasic waveform Profunda artery: 95 cm/sec; triphasic waveform Popliteal artery: 33 cm/sec; monophasic waveform Posterior tibial artery: 29 cm/sec; monophasic waveform Anterior tibial artery: 53 cm/sec; monophasic waveform Dorsalis pedis artery: 35 cm/sec; monophasic waveform ADDITIONAL FINDINGS: None. IMPRESSION: Findings suggest moderate peripheral arterial disease. There are abnormal waveforms and decreased peak systolic velocities involving the mid superficial femoral artery, popliteal artery and below the knee vessels. Greater sensitivity and specificity can be obtained with pre-and post exercise PVRs with AFUA calculations. Also consider dedicated CTA for further anatomical detail.
[2016-06-22 09:07] LABS: GRANULOCYTE % 90.6 % (42.2-75.2)
[2016-06-22 09:35] LABS: PTT 109 SEC (25-37)
--- NOTE | 2016-06-22 10:52 | Cons- Wound Care ---
General Information and HPI Consulting Request Date of Consult: 06/22/16 Requested By: MOE JACKSON MD Reason for Consult: Bilateral lower extremity ulcers present on admission bilateral History of Present Illness: Patient is an 89-year-old gentleman with multiple medical problems including CHF cardiac ascites bullous pemphigoid who was admitted because of increasing leg edema and weeping lower extremity ulcers. He's been treated for bullous pemphigoid to which these ulcers have been attributed. Duplex venous ultrasound was negative. Arterial Ultrasound suggest complicating peripheral vascular disease. Patient is noted to have gram-negative violetta bacteremia Allergies/Medications Allergies: Coded Allergies: No Known Allergies (05/29/16) Home Med List: Betamethasone Dipropionate 0.05 % OINT...G. 1 AYAAN TOP BID WOUNDS (Reported) Cholecalciferol (Vitamin D3) 1,000 UNIT TABLET 2,000 IU PO DAILY bones Clobetasol Propionate 0.05 % OINT...G. 1 AYAAN TOP BID WOUNDS (Reported) apply to affected area(s) Cyanocobalamin (Vitamin B-12) 1,000 MCG TABLET 1 TAB PO DAILY SUPPLEMENT ( Reported) Diclofenac Sodium (Voltaren) 1 % GEL..GRAM. 1 GM TOP 4 TIMES/DAY HAND PAIN/ RASH apply to affected area(s) Doxycycline Hyclate 100 MG CAPSULE 1 CAP PO BID WOUNDS (Reported) Levothyroxine Sodium 100 MCG TABLET 1 TAB PO DAILY THYROID (Reported) Minocycline HCl 100 MG CAPSULE 1 CAP PO BID ANTIBIOTIC (Reported) Silver Sulfadiazine (Silvadene) 1 % CREAM..G. 1 AYAAN TOP DAILY WOUNDS ON LEGS (Reported) apply to affected area(s) Triamcinolone Acetonide 0.1 % OINT...G. 1 AYAAN TOP BID PRN RASH apply to affected area(s) 0.1% Vit A/C/E AC/Znox/Cupric Oxide (Eye Vitamin-Minerals Tablet) 1 EACH TABLET 1 TAB PO DAILY SUPPLEMENT (Reported) Past History Travel History Traveled to [place] past 21 day No Medical History Blood Transfusion Hx: No Neurological: vertigo EENT: cataracts, hearing loss (postop) Cardiovascular: diastolic CHF, hypertension, hyperlipidemia, TR with elevated RV pressure RBBB old antinf NV by EKG with ? 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 & adjacent blood clot Renal: chronic kidney disease Musculoskeletal: falls, BULLOUS PEMPHIGOID Psychiatric: NONE Endocrine: NONE Blood Disorders: anemia Cancer(s): NONE TOOLS PROGRAMMER/Reproductive: NONE Other Medical Hx: Hx Lyme disease Surgical History Surgical History: cataract removal Family History Relations & Conditions If Any: BROTHER (EtOH cirrhosis). . FH: hepatic cirrhosis BROTHER, ; Cause: Alcoholic cirrhosis. FATHER (fxd neck). , Age 47; Cause: Fall. MOTHER, , Age 70; Cause: Fall. Psychosocial History Where Do You Live? Home Who Do You Live With? spouse (dtr), child Services at Home: None Primary Language: Greenlandic Smoking Status: Never Smoked ETOH Use: denies use Illicit Drug Use: denies illicit drug use Living Will? no Power of Shade Cutter/HCP? no Functional Ability ADLs Independent: dressing, eating, toileting, bathing. Ambulation: cane IADLs Independent: shopping, housework, finances, food prep, telephone, transportation , medication admin. Employment History Employment: Retired Exam & Diagnostic Data Vital Signs and I&O Vital Signs Result Date Time Pulse Ox 95 06/22 0820 B/P 108/52 06/22 0820 O2 Delivery Room Air 06/22 0820 Temp 97.7 06/22 0820 Pulse 82 06/22 0820 Resp 20 06/22 0820 Intake & Output 06/22 0000 06/21 1600 06/21 0800 Intake Total 100 Output Total Balance 100 Intake, Oral 100 Patient 168 lb Weight Weight Reported by Patient Measurement Method There are multiple ulcers over the dorsal surfaces of both hands with predominantly yellow fill there is edema of both ankles distal pulses are unable to be palpated there is significant edema and discomfort over the left ankle there are multiple ulcers over both lower extremities which have predominantly yellow fill there is periwound erythema more prominent over the left leg. It is no undermining exposed bone Assessment/Plan Impression/Plan: 89-year-old gentleman with multiple medical problems admitted with increasing lower extremity edema and weeping bilateral leg ulcers present on admission. These are likely multifactorial due to underlying bullous pemphigoid complicated by venous insufficiency and edema and probable peripheral vascular disease. Recommend leg elevation wound cleansing and nonadherent dressing. Recommend dermatologic follow-up as well as vascular surgery evaluation of abnormal arterial ultrasound. Suggest infectious disease evaluation for source of gram- negative violetta bacteremia in view of history of abdominal ascites and abdominal Pleurx catheter placement in April Consult Acknowledgment - Thank you for your consult request.
--- NOTE | 2016-06-22 12:51 | PN- Att Addend ---
Attending Addendum Attending Brief Note Patient seen and examined, denies any current complaints. Patient was originally admitted with bilateral lower extremity pain and found to be in new onset A. fib. Upon cardiology evaluation, he was found to have sinus rhythm with multiple PVCs/PACs but not atrial fibrillation. Vital Signs Date Time Temp Pulse Resp B/P B/P Pulse O2 O2 Flow FiO2 Mean Ox Delivery Rate 06/22 1052 Room Air 06/22 0820 97.7 82 20 108/52 95 Room Air 06/21 2200 97 Room Air 06/21 2137 97.7 56 18 112/56 96 06/21 2050 Room Air 06/21 2048 96.4 74 18 127/61 97 Room Air 06/21 1833 82 18 129/59 98 Room Air 06/21 1629 Room Air 06/21 1614 98.6 85 18 120/62 98 Room Air on exam; aox3, nad. cv; s1,s2, rrr resp; clear abd; distended, nontender, bowel sounds positive. ext; wrapped in Memo wrap. Laboratory Tests 06/22 06/22 06/21 06/21 0819 0650 2310 1830 Chemistry Sodium (137 - 145 mmol/L) 137 Potassium (3.5 - 5.1 mmol/L) 4.6 Chloride (98 - 107 mmol/L) 112 H Carbon Dioxide (22 - 30 mmol/L) 15 L Anion Gap (5 - 16) 10 BUN (9 - 20 mg/dL) 58 H Creatinine (0.7 - 1.2 mg/dL) 2.3 H Estimated GFR (>60 ml/min) 27 L BUN/Creatinine Ratio (7 - 25 %) 25.2 H Lactic Acid (0.7 - 2.1 mmol/L) 1.3 1.2 Troponin I (<0.11 ng/ml) 0.40 *H 0.41 *H Coagulation APTT (25 - 37 SEC) 109 *H Hematology CBC w Diff NO MAN DIFF REQ WBC (4.8 - 10.8 /CUMM) 10.8 RBC (4.70 - 6.10 /CUMM) 3.51 L Hgb (14.0 - 18.0 G/DL) 9.1 L Hct (42 - 52 %) 28.6 L MCV (80.0 - 94.0 FL) 81.6 MCH (27.0 - 31.0 PG) 26.0 L RDW (11.5 - 14.5 %) 20.9 H Plt Count (130 - 400 /CUMM) 215 MPV (7.4 - 10.4 FL) 6.6 L Gran % (42.2 - 75.2 %) 90.6 H Lymphocytes % (20.5 - 51.1 %) 4.4 L Monocytes % (1.7 - 9.3 %) 4.7 Eosinophils % (0 - 5 %) 0.3 Basophils % (0.0 - 2.0 %) 0 L Absolute Granulocytes (1.4 - 6.5 /CUMM) 9.8 H Absolute Lymphocytes (1.2 - 3.4 /CUMM) 0.5 L Absolute Monocytes (0.10 - 0.60 /CUMM) 0.5 Absolute Eosinophils (0.0 - 0.7 /CUMM) 0 Absolute Basophils (0.0 - 0.2 /CUMM) 0 PUBS MCHC (33.0 - 37.0 G/DL) 31.8 L 06/21 1709 Chemistry Sodium (137 - 145 mmol/L) 134 L Potassium (3.5 - 5.1 mmol/L) 4.7 Chloride (98 - 107 mmol/L) 109 H Carbon Dioxide (22 - 30 mmol/L) 16 L Anion Gap (5 - 16) 10 BUN (9 - 20 mg/dL) 56 H Creatinine (0.7 - 1.2 mg/dL) 2.1 H Estimated GFR (>60 ml/min) 30 L BUN/Creatinine Ratio (7 - 25 %) 26.7 H Glucose (65 - 99 mg/dL) 132 H Calcium (8.4 - 10.2 mg/dL) 7.7 L Total Bilirubin (0.2 - 1.3 mg/dL) 0.6 AST (17 - 59 U/L) 21 ALT (21 - 72 U/L) 36 Alkaline Phosphatase (< 127 U/L) 107 Troponin I (<0.11 ng/ml) 0.32 *H Total Protein (6.3 - 8.2 g/dL) 5.7 L Albumin (3.5 - 5.0 g/dL) 2.3 L Globulin (1.9 - 4.2 gm/dL) 3.4 Albumin/Globulin Ratio (1.1 - 2.2 %) 0.7 L TSH &T3 &Free T4 Intrp (0.27 - 4.20 uIU/mL) 1.560 Hematology CBC w Diff NO MAN DIFF REQ WBC (4.8 - 10.8 /CUMM) 9.2 RBC (4.70 - 6.10 /CUMM) 3.66 L Hgb (14.0 - 18.0 G/DL) 9.4 L Hct (42 - 52 %) 29.6 L MCV (80.0 - 94.0 FL) 80.8 MCH (27.0 - 31.0 PG) 25.8 L RDW (11.5 - 14.5 %) 20.8 H Plt Count (130 - 400 /CUMM) 214 MPV (7.4 - 10.4 FL) 6.4 L Gran % (42.2 - 75.2 %) 91.9 H Lymphocytes % (20.5 - 51.1 %) 2.1 L Monocytes % (1.7 - 9.3 %) 4.5 Eosinophils % (0 - 5 %) 0.8 Basophils % (0.0 - 2.0 %) 0.7 Absolute Granulocytes (1.4 - 6.5 /CUMM) 8.5 H Absolute Lymphocytes (1.2 - 3.4 /CUMM) 0.2 L Absolute Monocytes (0.10 - 0.60 /CUMM) 0.4 Absolute Eosinophils (0.0 - 0.7 /CUMM) 0.1 Absolute Basophils (0.0 - 0.2 /CUMM) 0.1 PUBS MCHC (33.0 - 37.0 G/DL) 32.0 L A/P; 89 y/o M with pmh sig for HTN, HLD, diastolic congestive heart failure, non -sustained wide complex tachycardia with periodic bradycardia, history of Lyme disease, CKD, chronic anemia, recurrent ascites previously attributed to heart failure, bullous pemphigoid, vertigo has a Pleurx cath in his abdomen for frequent drainage of ascites who was admitted with bilateral lower extremity pain and found to be initially Wart-Off to be atrial fibrillation but after cardiology evaluation this is sinus rhythm with multiple PVCs and PACs. Lower externally venous Doppler negative, he does have peripheral arterial disease on duplex ultrasound arterial. Patient now has gram-negative bacteremia. According to his history and physical , he was treated with doxycycline recently. At this point we will obtain abdominal ultrasound, if there is significant ascites then we will drain him. We will likely send the fluid culture. Please obtain urine analysis and urine culture. Please obtain ID consult. From cardiology standpoint, no anticoagulation needed as this is not an A. fib. Dermatology consult as an outpatient. Please resume the rest of the home medications. DVT px: Start the patient on heparin subcutaneous after stopping the heparin drip. PT eval.
--- NOTE | 2016-06-22 13:14 | Cons- Cardiology ---
General Information and HPI Consulting Request Date of Consult: 06/22/16 Requested By: MOE JACKSON MD Reason for Consult: CHF, possible afib Source of Information: patient, old records History of Present Illness: This is an 89-year-old male with a past medical history of recurrent ascites requiring recurrent large-volume paracentesis now with chronic drain in place, heart failure with preserved ejection fraction and concern for cardiac amyloidosis, renal insufficiency, bullous pemphigoid, hypertension, hyperlipidemia, and NSVT who presents to [facility] with a chief complaint of increased lower extremity pain with swelling. The patient is a somewhat limited historian. He denies increased shortness of breath but does have some chronic intermittent dyspnea prior to regular ascites drainage via the indwelling catheter by visiting nursing services. He denies any palpitations or chest pain. Denies headache, slurring of speech, or subjective fever. He is noted to have a gram-negative rods growing on blood cultures. Denies any chills. There was some concern for atrial fibrillation on his ECG and telemetry. Allergies/Medications Allergies: Coded Allergies: No Known Allergies (05/29/16) Home Med List: Betamethasone Dipropionate 0.05 % OINT...G. 1 AYAAN TOP BID WOUNDS (Reported) Cholecalciferol (Vitamin D3) 1,000 UNIT TABLET 2,000 IU PO DAILY bones Clobetasol Propionate 0.05 % OINT...G. 1 AYAAN TOP BID WOUNDS (Reported) apply to affected area(s) Cyanocobalamin (Vitamin B-12) 1,000 MCG TABLET 1 TAB PO DAILY SUPPLEMENT ( Reported) Diclofenac Sodium (Voltaren) 1 % GEL..GRAM. 1 GM TOP 4 TIMES/DAY HAND PAIN/ RASH apply to affected area(s) Doxycycline Hyclate 100 MG CAPSULE 1 CAP PO BID WOUNDS (Reported) Levothyroxine Sodium 100 MCG TABLET 1 TAB PO DAILY THYROID (Reported) Minocycline HCl 100 MG CAPSULE 1 CAP PO BID ANTIBIOTIC (Reported) Silver Sulfadiazine (Silvadene) 1 % CREAM..G. 1 AYAAN TOP DAILY WOUNDS ON LEGS (Reported) apply to affected area(s) Triamcinolone Acetonide 0.1 % OINT...G. 1 AYAAN TOP BID PRN RASH apply to affected area(s) 0.1% Vit A/C/E AC/Znox/Cupric Oxide (Eye Vitamin-Minerals Tablet) 1 EACH TABLET 1 TAB PO DAILY SUPPLEMENT (Reported) Current Medications: Current Medications Sig/Bennie Start time Last Medication Dose Route Stop Time Status Admin Acetaminophen 650 MG Q6P PRN 06/21 2245 AC PO Acetaminophen 0 .STK-MED ONE 06/21 1705 DC PO Acetaminophen 650 MG ONCE ONE 06/21 1700 DC 06/21 PO 06/21 1701 1712 Ampicillin Sodium/ 1,500 MG Q12H 06/22 0800 AC 06/22 Sulbactam Sodium IV 0836 Sodium Chloride 100 ML Ampicillin Sodium/ 0 .STK-MED ONE 06/21 1924 DC Sulbactam Sodium .ROUTE Ampicillin Sodium/ 1,500 MG ONCE ONE 06/21 1845 DC 06/21 Sulbactam Sodium IV 06/21 1914 2020 Sodium Chloride 100 ML Aspirin 0 .STK-MED ONE 06/21 1823 DC PO Aspirin 325 MG ONCE ONE 06/21 1815 DC / PO 06/21 1816 1825 Heparin Sodium 25,000 UNIT Q24H 06/22 0145 AC 06/22 (Porcine) IV 0150 Sodium Chloride 500 ML Heparin Sodium 25,000 UNIT Q24H / 2300 DC (Porcine) IV Sodium Chloride 500 ML Heparin Sodium 5,000 UNIT Q8 06/21 2200 DC 06/21 (Porcine) SC 2147 Hydromorphone HCl 0.5 MG QAM PRN 06/21 2130 CAN IV Levothyroxine Sodium 0.1 MG DAILY AC 06/22 0700 AC 06/22 PO 0623 Oxycodone/ 0 .STK-MED ONE 06/21 1823 DC Acetaminophen PO Oxycodone/ 1 TAB ONCE ONE 06/21 1815 DC 05/ Acetaminophen PO / 1816 1825 Sodium Chloride 1,000 ML .Q20H / 2115 DC 05/ IV 06/23 1314 2146 Trimethobenzamide HCl 200 MG ONCE ONE 06/21 2100 DC IM 06/21 2101 Review of Systems Review of Systems: As per above HPI. The remainder of the 10 point review of systems was otherwise negative. Past History Travel History Traveled to [place] past 21 day No Medical History Blood Transfusion Hx: No Neurological: vertigo EENT: cataracts, hearing loss (postop) Cardiovascular: diastolic CHF, hypertension, hyperlipidemia, TR with elevated RV pressure RBBB old antinf HI by EKG with ? 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 . FH: hepatic cirrhosis BROTHER, ; Cause: Alcoholic cirrhosis. FATHER (fxd neck). , Age 47; Cause: Fall. MOTHER, , Age 70; Cause: Fall. Psychosocial History Where Do You Live? Home Who Do You Live With? spouse (dtr), child Services at Home: None Primary Language: Ethiopian Smoking Status: Never Smoked ETOH Use: denies use Illicit Drug Use: denies illicit drug use Living Will? no Power of Manga Artist/HCP? no Functional Ability ADLs Independent: dressing, eating, toileting, bathing. Ambulation: cane IADLs Independent: shopping, housework, finances, food prep, telephone, transportation , medication admin. Employment History Employment: Retired ECHO Results (as available) Report: Left radical ejection fraction 45-50%, moderate concentric left ventricular hypertrophy, sooner normal left ventricular filling pattern consistent with elevated left atrial pressure, left ventricular texture may suggest amyloid, left atrium mildly dilated, hepatic vein reversal of flow suggesting significant tricuspid regurgitation, right radical systolic pressure probably under calculated at 37 mmHg and trace pericardial effusion Exam & Diagnostic Data Vital Signs and I&O Vital Signs Date Time Temp Pulse Resp B/P B/P Pulse O2 O2 Flow FiO2 Mean Ox Delivery Rate 06/22 1052 Room Air 06/22 0820 97.7 82 20 108/52 95 Room Air 06/21 2200 97 Room Air 06/217 97.7 56 18 112/56 96 06/21 2049 Room Air 06/22 2047 96.4 74 18 127/61 97 Room Air 06/21 1833 82 18 129/59 98 Room Air 06/21 1629 Room Air 06/21 1614 98.6 85 18 120/62 98 Room Air Intake & Output 06/22 0806/22 0000 06/21 0806/21 0000 Intake Total 696 100 Output Total 300 Balance 396 100 Intake, IV 556 Intake, Oral 140 100 Output, Urine 300 Patient 168 lb 168 lb Weight Weight Reported by Patient Measurement Method Physical Exam: General: no apparent distress. Alert. Eyes: No obvious scleral icterus. HEENT: no JVD Cardiovascular: Normal intensity S1/S2. One out of 6 systolic murmur Respiratory: Mildly decreased air entry without rales Abdomen: distended without guarding, abdominal catheter in place (right) Musculoskeletal: 1+ bilateral lower extremity edema Skin: Warm, stasis changes noted, ulcerations noted with dressings in place Neurologic: No gross focal deficits noted. Labs/Jerel Results: Laboratory Tests 06/22 06/22 06/21 06/21 0819 0650 2310 1830 Chemistry Sodium (137 - 145 mmol/L) 137 Potassium (3.5 - 5.1 mmol/L) 4.6 Chloride (98 - 107 mmol/L) 112 H Carbon Dioxide (22 - 30 mmol/L) 15 L Anion Gap (5 - 16) 10 BUN (9 - 20 mg/dL) 58 H Creatinine (0.7 - 1.2 mg/dL) 2.3 H Estimated GFR (>60 ml/min) 27 L BUN/Creatinine Ratio (7 - 25 %) 25.2 H Lactic Acid (0.7 - 2.1 mmol/L) 1.3 1.2 Troponin I (<0.11 ng/ml) 0.40 *H 0.41 *H Coagulation APTT (25 - 37 SEC) 109 *H Hematology CBC w Diff NO MAN DIFF REQ WBC (4.8 - 10.8 /CUMM) 10.8 RBC (4.70 - 6.10 /CUMM) 3.51 L Hgb (14.0 - 18.0 G/DL) 9.1 L Hct (42 - 52 %) 28.6 L MCV (80.0 - 94.0 FL) 81.6 MCH (27.0 - 31.0 PG) 26.0 L RDW (11.5 - 14.5 %) 20.9 H Plt Count (130 - 400 /CUMM) 215 MPV (7.4 - 10.4 FL) 6.6 L Gran % (42.2 - 75.2 %) 90.6 H Lymphocytes % (20.5 - 51.1 %) 4.4 L Monocytes % (1.7 - 9.3 %) 4.7 Eosinophils % (0 - 5 %) 0.3 Basophils % (0.0 - 2.0 %) 0 L Absolute Granulocytes (1.4 - 6.5 /CUMM) 9.8 H Absolute Lymphocytes (1.2 - 3.4 /CUMM) 0.5 L Absolute Monocytes (0.10 - 0.60 /CUMM) 0.5 Absolute Eosinophils (0.0 - 0.7 /CUMM) 0 Absolute Basophils (0.0 - 0.2 /CUMM) 0 PUBS MCHC (33.0 - 37.0 G/DL) 31.8 L 06/21 06/21 1709 1100 Chemistry Sodium (137 - 145 mmol/L) 134 L Potassium (3.5 - 5.1 mmol/L) 4.7 Chloride (98 - 107 mmol/L) 109 H Carbon Dioxide (22 - 30 mmol/L) 16 L Anion Gap (5 - 16) 10 BUN (9 - 20 mg/dL) 56 H Creatinine (0.7 - 1.2 mg/dL) 2.1 H Estimated GFR (>60 ml/min) 30 L BUN/Creatinine Ratio (7 - 25 %) 26.7 H Glucose (65 - 99 mg/dL) 132 H Calcium (8.4 - 10.2 mg/dL) 7.7 L Total Bilirubin (0.2 - 1.3 mg/dL) 0.6 AST (17 - 59 U/L) 21 ALT (21 - 72 U/L) 36 Alkaline Phosphatase (< 127 U/L) 107 Troponin I (<0.11 ng/ml) 0.32 *H Cancelled Total Protein (6.3 - 8.2 g/dL) 5.7 L Albumin (3.5 - 5.0 g/dL) 2.3 L Globulin (1.9 - 4.2 gm/dL) 3.4 Albumin/Globulin Ratio (1.1 - 2.2 %) 0.7 L TSH &T3 &Free T4 Intrp (0.27 - 4.20 uIU/mL) 1.560 Hematology CBC w Diff NO MAN DIFF REQ WBC (4.8 - 10.8 /CUMM) 9.2 RBC (4.70 - 6.10 /CUMM) 3.66 L Hgb (14.0 - 18.0 G/DL) 9.4 L Hct (42 - 52 %) 29.6 L MCV (80.0 - 94.0 FL) 80.8 MCH (27.0 - 31.0 PG) 25.8 L RDW (11.5 - 14.5 %) 20.8 H Plt Count (130 - 400 /CUMM) 214 MPV (7.4 - 10.4 FL) 6.4 L Gran % (42.2 - 75.2 %) 91.9 H Lymphocytes % (20.5 - 51.1 %) 2.1 L Monocytes % (1.7 - 9.3 %) 4.5 Eosinophils % (0 - 5 %) 0.8 Basophils % (0.0 - 2.0 %) 0.7 Absolute Granulocytes (1.4 - 6.5 /CUMM) 8.5 H Absolute Lymphocytes (1.2 - 3.4 /CUMM) 0.2 L Absolute Monocytes (0.10 - 0.60 /CUMM) 0.4 Absolute Eosinophils (0.0 - 0.7 /CUMM) 0.1 Absolute Basophils (0.0 - 0.2 /CUMM) 0.1 PUBS MCHC (33.0 - 37.0 G/DL) 32.0 L Diagnostic Data EKG Results tracing was personally reviewed and shows likely sinus rhythm with diminutiveP- waves and PACs, IVCD CXR Results IMPRESSION: No acute pulmonary process. Pulmonary hypoinflation and bronchovascular crowding. Stable prominence of the cardiac silhouette, without overt pulmonary edema. Other Results telemetry tracings were personally reviewed and shows sinus rhythm with PACs and interventricular conduction delay venous Doppler IMPRESSION: Normal triplex scan without evidence of deep venous thrombosis involving the lower extremities. Assessment/Plan Assessment/Plan 1. Bullous pemphigoid with cellulitis and bacteremia 2. 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 Chronic renal insufficiency 4. Chronically elevated troponin 5. Chronic anemia 6. History of Nonsustained wide complex tachycardia with periods of bradycardia on metoprolol There was initially concern for atrial fibrillation but on careful review of the ECGs and associated telemetry strips the patient appears to have regular small P waves with frequent PACs as opposed to true atrial fibrillation. A similar finding was found on an outpatient Holter monitor in January of 2016. At this point I would discontinue intravenous heparin. Continue with intermittent drainage of his ascites via the indwelling abdominal catheter as needed. The patient has a chronic troponin elevation and further troponins do not need to be checked as he has no evidence of acute coronary syndrome. An echocardiogram was already performed and I will review those images. He appears to be at his baseline from a cardiac standpoint. He is on intravenous antibiotics for the bacteremia. Star Pollock MD [facility] Consult Acknowledgment - Thank you for your consult request.
--- NOTE | 2016-06-22 15:16 | PN- Housestaff ---
Subjective Follow-up For: New onset A. fib Bilateral lower extremity pain and cellulitis gram-negative bacteremia Mild acute on chronic renal insufficiency Subjective: This morning patient is alert, awake and oriented. He is currently on IV heparin drip for new onset A. fib. He denies any chest pain, discomfort, dizziness or lightheadedness, palpitations, abdominal pain, nausea, vomiting. He is complaining of left lower extremity pain. He has dressings on bilateral lower extremities and on both hands. Review of Systems Constitutional: Reports: see HPI. Objective Last 24 Hrs of Vital Signs/I&O Vital Signs Date Time Temp Pulse Resp B/P B/P Pulse O2 O2 Flow FiO2 Mean Ox Delivery Rate 06/22 1052 Room Air 06/22 0820 97.7 82 20 108/52 95 Room Air 06/21 2200 97 Room Air 06/21 2137 97.7 56 18 112/56 96 06/21 2050 Room Air 06/21 2048 96.4 74 18 127/61 97 Room Air 06/21 1833 82 18 129/59 98 Room Air 06/21 1629 Room Air 06/21 1614 98.6 85 18 120/62 98 Room Air Intake & Output 06/22 1600 06/22 0800 06/22 0000 Intake Total 880 696 100 Output Total 200 300 Balance 680 396 100 Intake, IV 400 556 Intake, Oral 480 140 100 Output, Urine 200 300 Patient 168 lb 168 lb Weight Weight Reported by Patient Measurement Method Physical Exam General Appearance: Alert, Oriented X3, Cooperative, No Acute Distress Cardiovascular: tachycardia Lungs: Normal Air Movement Abdomen: No Tenderness, firm and tense, abdominal catheter in place on right side Neurological: Normal Speech, Sensation Intact, Cranial Nerves 3-12 NL Extremities: bandages intact bilateral lower extremities. Left lower extremity tender on palpation. Bandages intact both hands Current Medications: Current Medications Sig/Bennie Start time Last Medication Dose Route Stop Time Status Admin Acetaminophen 650 MG Q6P PRN 06/21 2245 AC PO Acetaminophen 0 .STK-MED ONE 06/21 1705 DC PO Acetaminophen 650 MG ONCE ONE 06/21 1700 DC 06/21 PO 06/21 1701 1712 Ampicillin Sodium/ 1,500 MG Q12H 06/22 0800 AC 06/22 Sulbactam Sodium IV 0836 Sodium Chloride 100 ML Ampicillin Sodium/ 0 .STK-MED ONE 06/21 1924 DC Sulbactam Sodium .ROUTE Ampicillin Sodium/ 1,500 MG ONCE ONE 06/21 1845 DC 06/21 Sulbactam Sodium IV 06/21 191 2020 Sodium Chloride 100 ML Aspirin 0 .STK-MED ONE 06/21 1823 DC PO Aspirin 325 MG ONCE ONE 06/21 1815 DC 06/21 PO 06/21 181 1825 Heparin Sodium 5,000 UNIT Q8 06/22 2200 AC (Porcine) SC Heparin Sodium 25,000 UNIT Q24H 06/22 0145 DC 06/22 (Porcine) IV 0150 Sodium Chloride 500 ML Heparin Sodium 25,000 UNIT Q24H 06/21 2300 DC (Porcine) IV Sodium Chloride 500 ML Heparin Sodium 5,000 UNIT Q8 06/21 2200 DC 06/21 (Porcine) SC 2147 Hydromorphone HCl 0.5 MG QAM PRN 06/21 2130 CAN IV Levothyroxine Sodium 0.1 MG DAILY AC 06/22 0700 AC 06/22 PO 0623 Oxycodone/ 1 TAB Q6P PRN 06/22 1345 AC 06/22 Acetaminophen PO 1341 Oxycodone/ 0 .STK-MED ONE 06/21 1823 DC Acetaminophen PO Oxycodone/ 1 TAB ONCE ONE 06/21 181 DC 06/21 Acetaminophen PO 06/21 181 1825 Sodium Chloride 1,000 ML .Q20H 06/21 2115 DC 06/21 IV 06/23 1314 2146 Trimethobenzamide HCl 200 MG ONCE ONE 06/21 2100 DC IM 06/21 2101 Last 24 Hrs of Lab/Jerel Results Last 24 Hrs of Labs/Mics: Laboratory Tests 06/22/16 0819: APTT 109 *H 06/22/16 0650: Anion Gap 10, Estimated GFR 27 L, BUN/Creatinine Ratio 25.2 H, Troponin I 0.40 *H, CBC w Diff NO MAN DIFF REQ, RBC 3.51 L, MCV 81.6, MCH 26.0 L, RDW 20.9 H, MPV 6.6 L, Gran % 90.6 H, Lymphocytes % 4.4 L, Monocytes % 4.7, Eosinophils % 0.3, Basophils % 0 L, Absolute Granulocytes 9.8 H, Absolute Lymphocytes 0.5 L , Absolute Monocytes 0.5, Absolute Eosinophils 0, Absolute Basophils 0, PUBS MCHC 31.8 L 06/21/16 2310: Lactic Acid 1.3, Troponin I 0.41 *H 06/21/16 1830: Lactic Acid 1.2 06/21/16 1709: Anion Gap 10, Estimated GFR 30 L, BUN/Creatinine Ratio 26.7 H, Glucose 132 H, Calcium 7.7 L, Total Bilirubin 0.6, AST 21, ALT 36, Alkaline Phosphatase 107, Troponin I 0.32 *H, Total Protein 5.7 L, Albumin 2.3 L, Globulin 3.4, Albumin/ Globulin Ratio 0.7 L, TSH &T3 &Free T4 Intrp 1.560, CBC w Diff NO MAN DIFF REQ, RBC 3.66 L, MCV 80.8, MCH 25.8 L, RDW 20.8 H, MPV 6.4 L, Gran % 91.9 H, Lymphocytes % 2.1 L, Monocytes % 4.5, Eosinophils % 0.8, Basophils % 0.7, Absolute Granulocytes 8.5 H, Absolute Lymphocytes 0.2 L, Absolute Monocytes 0.4, Absolute Eosinophils 0.1, Absolute Basophils 0.1, PUBS MCHC 32.0 L Microbiology 06/22 1312 URINE ROUT: Urine Culture - ORD 06/22 2007 BLOOD: Blood Culture - RES GRAM NEGATIVE RODS 06/21 1829 BLOOD: Blood Culture - RES GRAM NEGATIVE RODS Assessment/Plan Assessment: He is 89-year-old man with past medical history of hypertension, hyperlipidemia, diastolic heart failure, History of Nonsustained wide complex tachycardia with periods of bradycardia on metoprolol, Bullous pemphigoid, 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 New onset A. fib atrial fibrillation 2. Gram-negative bacteremia source could be lower extremity cellulitis versus SBP 3. Chronic renal insufficiency 4. Chronically elevated troponins 5. Moderate peripheral arterial disease PLAN * Monitor vitals * Cardio consult appreciated-Per cardio patient is not in actual A. fib so we will DC IV heparin drip. * ID consult for gram-negative rods bacteremia * Patient is on IV Unasyn * Abdominal ultrasound to see for ascites. We will send ascitic fluid to lab to rule out SBP * Wound care consult appreciated * Avoid nephrotoxins * No need to trend troponins. Ruled out ACS * Echocardiogram * Vascular surgery consult * DVT prophylaxis subcutaneous heparin * Pain pathway * Heart healthy diet * Full code Problem List: 1. Cellulitis 2. Atrial fibrillation Pain Ratin Pain Location: Left lower extremity Pain Goal: Pain 4 or less Pain Plan: percocet Tomorrow's Labs & Rationales: bep DVT/Prophylaxis: pharmacological Consulting Request: Consulting Specialty: Infectious Disease
--- NOTE | 2016-06-22 16:21 | Cons- Infect Disease ---
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 He was afebrile. Laboratory data revealed a white blood cell count of 7000, BUN/26 and 2.1, liver enzymes normal, troponin 0.32. Chest x-ray revealed no acute process. Dopplers of both lower extremities were negative. Arterial Dopplers revealed moderate peripheral arterial disease. He was begun on Unasyn. He has remained afebrile overnight and presently is without complaints. This morning blood cultures 2 were reported positive for gram-negative rods. Allergies/Medications Allergies: Coded Allergies: No Known Allergies (05/29/16) Home Med List: Betamethasone Dipropionate 0.05 % OINT...G. 1 AYAAN TOP BID WOUNDS (Reported) Cholecalciferol (Vitamin D3) 1,000 UNIT TABLET 2,000 IU PO DAILY bones Clobetasol Propionate 0.05 % OINT...G. 1 AYAAN TOP BID WOUNDS (Reported) apply to affected area(s) Cyanocobalamin (Vitamin B-12) 1,000 MCG TABLET 1 TAB PO DAILY SUPPLEMENT ( Reported) Diclofenac Sodium (Voltaren) 1 % GEL..GRAM. 1 GM TOP 4 TIMES/DAY HAND PAIN/ RASH apply to affected area(s) Doxycycline Hyclate 100 MG CAPSULE 1 CAP PO BID WOUNDS (Reported) Levothyroxine Sodium 100 MCG TABLET 1 TAB PO DAILY THYROID (Reported) Minocycline HCl 100 MG CAPSULE 1 CAP PO BID ANTIBIOTIC (Reported) Silver Sulfadiazine (Silvadene) 1 % CREAM..G. 1 AYAAN TOP DAILY WOUNDS ON LEGS (Reported) apply to affected area(s) Triamcinolone Acetonide 0.1 % OINT...G. 1 AYAAN TOP BID PRN RASH apply to affected area(s) 0.1% Vit A/C/E AC/Znox/Cupric Oxide (Eye Vitamin-Minerals Tablet) 1 EACH TABLET 1 TAB PO DAILY SUPPLEMENT (Reported) Past History Travel History Traveled to [place] past 21 day No Medical History Blood Transfusion Hx: No Neurological: vertigo EENT: cataracts, hearing loss (postop) Cardiovascular: diastolic CHF, hypertension, hyperlipidemia, TR with elevated RV pressure RBBB old antinf [place] by EKG with ? 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 . FH: hepatic cirrhosis BROTHER, ; Cause: Alcoholic cirrhosis. FATHER (fxd neck). , Age 47; Cause: Fall. MOTHER, , Age 70; Cause: Fall. Psychosocial History Where Do You Live? Home Who Do You Live With? spouse (dtr), child Services at Home: None Primary Language: Serbian Smoking Status: Never Smoked ETOH Use: denies use Illicit Drug Use: denies illicit drug use Living Will? no Power of Plastics Fabricator/HCP? no Functional Ability ADLs Independent: dressing, eating, toileting, bathing. Ambulation: cane IADLs Independent: shopping, housework, finances, food prep, telephone, transportation , medication admin. Sexual History Sexually Active: No Employment History Employment: Retired Review of Systems Review of Systems GI: Denies: abdominal pain. All Other Systems: Reviewed and Negative Exam & Diagnostic Data Last 24 Hrs of Vital Signs/I&O Vital Signs Date Time Temp Pulse Resp B/P B/P Pulse O2 O2 Flow FiO2 Mean Ox Delivery Rate 06/22 1052 Room Air 06/22 0820 97.7 82 20 108/52 95 Room Air 06/21 2200 97 Room Air 06/217 97.7 56 18 112/56 96 06/210 Room Air 06/22 2047 96.4 74 18 127/61 97 Room Air 06/21 1833 82 18 129/59 98 Room Air 06/21 1629 Room Air Intake & Output 06/22 1600 06/22 0800 06/22 0000 Intake Total 880 696 100 Output Total 200 300 Balance 680 396 100 Intake, IV 400 556 Intake, Oral 480 140 100 Output, Urine 200 300 Patient 168 lb 168 lb Weight Weight Reported by Patient Measurement Method Physical Exam Other Physical Findings: He is awake and alert in no acute distress. He is afebrile. Skin reveals superficial ulcerations on both hands, with no surrounding inflammation, mildly tender to palpation. HEENT exam is negative. Neck is supple with no adenopathy. Lungs are clear. Heart regular rhythm with no murmur. Abdomen is distended, soft, nontender with positive bowel sounds; abdominal Pleurx catheter in the right lower quadrant with no inflammation at the site. Back no CVA tenderness. Extremities bilateral superficial ulcers, with erythema on the medial aspect of the left leg, tender to palpation.. Neuro is without focality. Last 24 Hours of Lab Results: Laboratory Tests 06/22 06/22 06/21 06/21 0819 0650 2310 1830 Chemistry Sodium (137 - 145 mmol/L) 137 Potassium (3.5 - 5.1 mmol/L) 4.6 Chloride (98 - 107 mmol/L) 112 H Carbon Dioxide (22 - 30 mmol/L) 15 L Anion Gap (5 - 16) 10 BUN (9 - 20 mg/dL) 58 H Creatinine (0.7 - 1.2 mg/dL) 2.3 H Estimated GFR (>60 ml/min) 27 L BUN/Creatinine Ratio (7 - 25 %) 25.2 H Lactic Acid (0.7 - 2.1 mmol/L) 1.3 1.2 Troponin I (<0.11 ng/ml) 0.40 *H 0.41 *H Coagulation APTT (25 - 37 SEC) 109 *H Hematology CBC w Diff NO MAN DIFF REQ WBC (4.8 - 10.8 /CUMM) 10.8 RBC (4.70 - 6.10 /CUMM) 3.51 L Hgb (14.0 - 18.0 G/DL) 9.1 L Hct (42 - 52 %) 28.6 L MCV (80.0 - 94.0 FL) 81.6 MCH (27.0 - 31.0 PG) 26.0 L RDW (11.5 - 14.5 %) 20.9 H Plt Count (130 - 400 /CUMM) 215 MPV (7.4 - 10.4 FL) 6.6 L Gran % (42.2 - 75.2 %) 90.6 H Lymphocytes % (20.5 - 51.1 %) 4.4 L Monocytes % (1.7 - 9.3 %) 4.7 Eosinophils % (0 - 5 %) 0.3 Basophils % (0.0 - 2.0 %) 0 L Absolute Granulocytes (1.4 - 6.5 /CUMM) 9.8 H Absolute Lymphocytes (1.2 - 3.4 /CUMM) 0.5 L Absolute Monocytes (0.10 - 0.60 /CUMM) 0.5 Absolute Eosinophils (0.0 - 0.7 /CUMM) 0 Absolute Basophils (0.0 - 0.2 /CUMM) 0 PUBS MCHC (33.0 - 37.0 G/DL) 31.8 L / 1709 Chemistry Sodium (137 - 145 mmol/L) 134 L Potassium (3.5 - 5.1 mmol/L) 4.7 Chloride (98 - 107 mmol/L) 109 H Carbon Dioxide (22 - 30 mmol/L) 16 L Anion Gap (5 - 16) 10 BUN (9 - 20 mg/dL) 56 H Creatinine (0.7 - 1.2 mg/dL) 2.1 H Estimated GFR (>60 ml/min) 30 L BUN/Creatinine Ratio (7 - 25 %) 26.7 H Glucose (65 - 99 mg/dL) 132 H Calcium (8.4 - 10.2 mg/dL) 7.7 L Total Bilirubin (0.2 - 1.3 mg/dL) 0.6 AST (17 - 59 U/L) 21 ALT (21 - 72 U/L) 36 Alkaline Phosphatase (< 127 U/L) 107 Troponin I (<0.11 ng/ml) 0.32 *H Total Protein (6.3 - 8.2 g/dL) 5.7 L Albumin (3.5 - 5.0 g/dL) 2.3 L Globulin (1.9 - 4.2 gm/dL) 3.4 Albumin/Globulin Ratio (1.1 - 2.2 %) 0.7 L TSH &T3 &Free T4 Intrp (0.27 - 4.20 uIU/mL) 1.560 Hematology CBC w Diff NO MAN DIFF REQ WBC (4.8 - 10.8 /CUMM) 9.2 RBC (4.70 - 6.10 /CUMM) 3.66 L Hgb (14.0 - 18.0 G/DL) 9.4 L Hct (42 - 52 %) 29.6 L MCV (80.0 - 94.0 FL) 80.8 MCH (27.0 - 31.0 PG) 25.8 L RDW (11.5 - 14.5 %) 20.8 H Plt Count (130 - 400 /CUMM) 214 MPV (7.4 - 10.4 FL) 6.4 L Gran % (42.2 - 75.2 %) 91.9 H Lymphocytes % (20.5 - 51.1 %) 2.1 L Monocytes % (1.7 - 9.3 %) 4.5 Eosinophils % (0 - 5 %) 0.8 Basophils % (0.0 - 2.0 %) 0.7 Absolute Granulocytes (1.4 - 6.5 /CUMM) 8.5 H Absolute Lymphocytes (1.2 - 3.4 /CUMM) 0.2 L Absolute Monocytes (0.10 - 0.60 /CUMM) 0.4 Absolute Eosinophils (0.0 - 0.7 /CUMM) 0.1 Absolute Basophils (0.0 - 0.2 /CUMM) 0.1 PUBS MCHC (33.0 - 37.0 G/DL) 32.0 L Last 24 Hours of Jerel Results: Blood cultures June 21 positive for gram negative rods Diagnostic Data Recent Imaging Findings: Chest x-ray revealed no acute process. Dopplers of both lower extremities negative. Arterial Dopplers revealed moderate peripheral arterial disease. 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 One possible source is the ascites, with the indwelling Pleurx catheter, and the ascitic fluid will need to be evaluated to rule out peritonitis, though he has no abdominal symptoms. Another possible source is a left leg cellulitis, with the erythema and tenderness, though gram-negative rods would be somewhat unusual. A urinary source is also possible though he reports no urinary symptoms. Suggestion: 1. Send ascitic fluid for cell count and culture 2. Obtain urinalysis and urine culture 3. Follow-up the results of the recent blood cultures 4. Discontinue Unasyn 5. Begin Ceftazidime 1 g IV every 12 hours pending above Consult Acknowledgment - Thank you for your consult request.
[2016-06-22 16:39] VITALS: BP 110/60
[2016-06-23 00:22] VITALS: BP 112/60
[2016-06-23 07:56] VITALS: BP 108/70
--- NOTE | 2016-06-23 08:49 | PN- Housestaff ---
See Addendum Subjective Follow-up For: New onset A. fib Bilateral lower extremity pain and cellulitis gram-negative bacteremia Mild acute on chronic renal insufficiency Complaints: patient is complaining of left lower extremity pain Patient is complaining of abdominal pain and constipation Tele-Events Since Last Visit: Normal sinus rhythm first-degree AV block Atrial fibrillation multiple PACs and PVCs At 6 AM patient had for Juan of V. tach Subjective: Patient was visited and examined this morning. He is complaining of bilateral lower extremity pain (left more than right) abdominal pain and distention ( status post paracentesis yesterday), poor appetite and constipation. Patient denies any chest pain, palpitation, short of breath. Review of Systems Constitutional: Reports: see HPI. EENTM: Reports: see HPI. Cardiovascular: Denies: chest pain, edema, orthopena, palpitations, peripheral edema, syncope. Respiratory: Reports: no symptoms. Gastrointestinal: Reports: see HPI, abdominal pain, constipation, distention. Genitourinary: Reports: no symptoms. Musculoskeletal: Reports: no symptoms. Skin: Reports: see HPI, change in skin color, erythema. Objective Last 24 Hrs of Vital Signs/I&O Vital Signs Date Time Temp Pulse Resp B/P B/P Pulse O2 O2 Flow FiO2 Mean Ox Delivery Rate 06/23 0756 97.6 72 14 108/70 96 Room Air / 0022 98.3 62 20 112/60 97 Room Air 05/ 1639 98.4 71 20 110/60 96 Room Air Intake & Output / 1600 05/06 0800 05/06 0000 Intake Total 120 420 Output Total 400 800 Balance -280 -380 Intake, IV 20 Intake, Oral 120 400 Number 0 Bowel Movements Output, Other 500 Output, Urine 400 300 Physical Exam General Appearance: Alert, Oriented X3, Cooperative, No Acute Distress Skin: Erythema, warmth left lower extremity BK Skin Temp/Moisture Exam: Warm/Excessively Dry HEENT: Atraumatic, PERRLA, EOMI, Mucous Membr. moist/pink Neck: No JVD, No thryomegaly Lymphatic: Axillary nl, Cervical nl Cardiovascular: Normal S1, Normal S2, No Murmurs, irregularly irregular Lungs: Clear to Auscultation, Normal Air Movement Abdomen: Soft Neurological: Normal Speech Extremities: No Edema, left lower extremity redness, erythema, tenderness and warmth Vascular: weak peripheral pulses, +1 TD Current Medications: Current Medications Sig/Bennie Start time Last Medication Dose Route Stop Time Status Admin Acetaminophen 650 MG Q6P PRN 06/21 2245 AC PO Ampicillin Sodium/ 1,500 MG Q12H 06/22 0800 DC 06/22 Sulbactam Sodium IV 0836 Sodium Chloride 100 ML Bisacodyl 10 MG DAILY PRN 06/23 1200 AC OR Ceftazidime 1,000 MG Q12 06/22 2200 AC 06/23 IV 0932 Heparin Sodium 5,000 UNIT Q8 06/22 2200 AC 06/23 (Porcine) SC 0548 Heparin Sodium 25,000 UNIT Q24H 06/22 0145 DC 06/22 (Porcine) IV 0150 Sodium Chloride 500 ML Levothyroxine Sodium 0.1 MG DAILY AC 06/22 0700 AC 06/23 PO 0548 Oxycodone/ 1 TAB Q6P PRN 06/22 1345 AC 06/23 Acetaminophen PO 0548 Tramadol HCl 50 MG ONCE ONE 06/23 0100 DC 06/23 PO 06/23 0101 0059 Last 24 Hrs of Lab/Jerel Results Last 24 Hrs of Labs/Mics: Laboratory Tests 06/23/16 0650: Anion Gap 13, Estimated GFR 23 L, BUN/Creatinine Ratio 23.1, Phosphorus Pending , Magnesium Pending, CBC w Diff Pending, WBC Pending, RBC Pending, Hgb Pending, Hct Pending, MCV Pending, MCH Pending, RDW Pending, Plt Count Pending, MPV Pending, PUBS MCHC Pending 06/22/16 1715: Fluid WBC 181 H, Fld Mesothelial Cells 84, Fld Total RBCs Counted 10 H 06/22/16 1715: Lymphocytes 14, % Normal PMNs 2, Fluid Glucose 142, Fluid Total Protein 2.5, Fluid Albumin < 1.0, Fluid LDH 287, Fluid Amylase < 30 06/22/16 1530: APTT Cancelled Microbiology 06/23 0300 URINE ROUT: Urine Culture - RECD 06/22 1714 BODY FLUID: Body Fluid Culture - RES 06/22 1714 BODY FLUID: Gram Stain - RES Assessment/Plan Assessment: He is 89-year-old man with past medical history of hypertension, hyperlipidemia, diastolic heart failure, History of Nonsustained wide complex tachycardia with periods of bradycardia on metoprolol, Bullous pemphigoid, 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 ??? A. fib atrial fibrillation 2. Gram-negative bacteremia source could be lower extremity cellulitis versus SBP 3. Chronic renal insufficiency 4. Chronically elevated troponins 5. Moderate peripheral arterial disease Ascitic fluid: Fluid WBC 181 H, Fld Mesothelial Cells 84, Fld Total RBCs Counted 10 H 06/22/16 1715: Lymphocytes 14, % Normal PMNs 2, Fluid Glucose 142, Fluid Total Protein 2.5, Fluid Albumin < 1.0, Fluid LDH 287, Fluid Amylase < 30 List of problems #1 Abnormal EKG: * 12 lead EKG was obtained>> NS rhythm 2# gram-negative bacteremia and cellulitis versus spontaneous bacterial peritonitis. SBP was ruled out. * Gram-negative bacteremia continue Fortaz * Follow infectious disease recommendation #3 peripheral vascular disease. * Consider with pre-and post exercise PVRs with AFUA calculations per vascular surgeon recommendation * dedicated CTA for further anatomical detail. #4 hypothyroidism- continue Synthroid #5 constipation- MiraLAX and Dulcolax DVT prophylaxis-heparin 5000 units every 8 hours subcutaneous Pain management-Percocet 1 tab every 6 as needed Problem List: 1. HTN / FALL/ R EAR DEAF/LYME 2. Atherosclerosis 3. Hypothyroid 4. Chronic kidney disease 5. Chronic anemia 6. Renal insufficiency 7. Anemia 8. Atrial fibrillation Pain Ratin Pain Location: legs Pain Goal: Pain 4 or less Pain Plan: percocet and tylenol [facility] & Rationales: [facility] Consulting Request: Consulting Specialty: Infectious Disease percocet and tylenol [facility] & Rationales: [facility] Consulting Request: Consulting Specialty: Infectious Disease
[2016-06-23 09:04] LABS: ABSOLUTE BASOPHIL COUNT 0 /CUMM (0.0-0.2); ABSOLUTE EOSINOPHIL COUNT 0.1 /CUMM (0.0-0.7); ABSOLUTE LYMPH COUNT 0.6 /CUMM (1.2-3.4); ABSOLUTE MONOCYTE COUNT 0.6 /CUMM (0.10-0.60); BASOPHIL % 0.2 % (0.0-2.0); GRANULOCYTE % 86.6 % (42.2-75.2); HEMATOCRIT 28.6 % (42-52); MEAN CORPUSCULAR HGB 26.2 PG (27.0-31.0); MEAN CORPUSCULAR HGB CONC 32.3 G/DL (33.0-37.0); MEAN PLATELET VOLUME 6.6 FL (7.4-10.4); PLATELET COUNT 213 /CUMM (130-400); RBC DISTRIBUTION WIDTH 20.6 % (11.5-14.5); RED BLOOD CELL CT 3.53 /CUMM (4.70-6.10); WHITE BLOOD CELL COUNT 10.4 /CUMM (4.8-10.8)
--- NOTE | 2016-06-23 10:19 | Cons- Vascular Surgery ---
General Information and HPI Consulting Request Date of Consult: 06/23/16 Requested By: MOE JACKSON MD Reason for Consult: Left leg cellulitis, possible arterial disease History of Present Illness: 89-year-old male with left leg infection. Patient has had bilateral cueva wounds for quite some time, managed at home with home VNA. Also has bullous pemphigoid, with wounds to both hands. A few days ago, patient was noted to have increasing left cueva edema, with erythema. He was brought to the emergency room to rule out DVT on ultrasound which it did. Patient has had significant pain along the left lower calf and ankle in the area of significant erythema. His motor function is intact in the left ankle and calf area. He had arterial testing showing possible arterial disease in the left lower extremity. Venous ultrasound was negative for DVT. Allergies/Medications Allergies: Coded Allergies: No Known Allergies (05/29/16) Home Med List: Betamethasone Dipropionate 0.05 % OINT...G. 1 AYAAN TOP BID WOUNDS (Reported) Cholecalciferol (Vitamin D3) 1,000 UNIT TABLET 2,000 IU PO DAILY bones Clobetasol Propionate 0.05 % OINT...G. 1 AYAAN TOP BID WOUNDS (Reported) apply to affected area(s) Cyanocobalamin (Vitamin B-12) 1,000 MCG TABLET 1 TAB PO DAILY SUPPLEMENT ( Reported) Diclofenac Sodium (Voltaren) 1 % GEL..GRAM. 1 GM TOP 4 TIMES/DAY HAND PAIN/ RASH apply to affected area(s) Doxycycline Hyclate 100 MG CAPSULE 1 CAP PO BID WOUNDS (Reported) Levothyroxine Sodium 100 MCG TABLET 1 TAB PO DAILY THYROID (Reported) Minocycline HCl 100 MG CAPSULE 1 CAP PO BID ANTIBIOTIC (Reported) Silver Sulfadiazine (Silvadene) 1 % CREAM..G. 1 AYAAN TOP DAILY WOUNDS ON LEGS (Reported) apply to affected area(s) Triamcinolone Acetonide 0.1 % OINT...G. 1 AYAAN TOP BID PRN RASH apply to affected area(s) 0.1% Vit A/C/E AC/Znox/Cupric Oxide (Eye Vitamin-Minerals Tablet) 1 EACH TABLET 1 TAB PO DAILY SUPPLEMENT (Reported) Current Medications: Current Medications Sig/Bennie Start time Last Medication Dose Route Stop Time Status Admin Acetaminophen 650 MG Q6P PRN 06/21 2245 AC PO Ampicillin Sodium/ 1,500 MG Q12H 06/22 0800 DC 06/22 Sulbactam Sodium IV 0836 Sodium Chloride 100 ML Ceftazidime 1,000 MG Q12 06/22 2200 AC 06/23 IV 0932 Heparin Sodium 5,000 UNIT Q8 06/22 2200 AC 06/23 (Porcine) SC 0548 Heparin Sodium 25,000 UNIT Q24H / 0145 DC 06/22 (Porcine) IV 0150 Sodium Chloride 500 ML Levothyroxine Sodium 0.1 MG DAILY AC 06/22 0700 AC 06/23 PO 0548 Oxycodone/ 1 TAB Q6P PRN 06/22 1345 AC 06/23 Acetaminophen PO 0548 Tramadol HCl 50 MG ONCE ONE 06/23 0100 DC 06/23 PO 06/23 0101 0059 Past History Medical History Blood Transfusion Hx: No Neurological: vertigo EENT: cataracts, hearing loss (postop) Cardiovascular: diastolic CHF, hypertension, hyperlipidemia, TR with elevated RV pressure RBBB old antinf [place] by EKG with ? 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 . FH: hepatic cirrhosis BROTHER, ; Cause: Alcoholic cirrhosis. FATHER (fxd neck). , Age 47; Cause: Fall. MOTHER, , Age 70; Cause: Fall. Psychosocial History Where Do You Live? Home Who Do You Live With? spouse (dtr), child Services at Home: None Primary Language: Urdu Smoking Status: Never Smoked ETOH Use: denies use Illicit Drug Use: denies illicit drug use Living Will? no Power of J2Ee Software Engineer/HCP? no Functional Ability ADLs Independent: dressing, eating, toileting, bathing. Ambulation: cane IADLs Independent: shopping, housework, finances, food prep, telephone, transportation , medication admin. Employment History Employment: Retired Review of Systems Review of Systems Constitutional: Reports: weakness. EENTM: Denies: see HPI. Cardiovascular: Denies: chest pain. Respiratory: Denies: short of breath. GI: Denies: abdominal pain. Musculoskeletal: Denies: joint pain. Skin: Reports: erythema. Neurological/Psychological: Denies: confusion. Exam & Diagnostic Data Vital Signs and I&O Vital Signs Date Time Temp Pulse Resp B/P B/P Pulse O2 O2 Flow FiO2 Mean Ox Delivery Rate 06/23 0756 97.6 72 14 108/70 96 Room Air 06/23 0022 98.3 62 20 112/60 97 Room Air 06/22 1639 98.4 71 20 110/60 96 Room Air 06/22 1052 Room Air Intake & Output 06/23 1600 06/23 0806/23 0000 06/22 1600 06/22 0806/22 0000 Intake Total 120 420 880 696 100 Output Total 400 800 200 300 Balance -280 -380 680 396 100 Intake, IV 20 400 556 Intake, Oral 120 400 480 140 100 Number 0 Bowel Movements Output, Other 500 Output, Urine 400 300 200 300 Patient 76.204 kg 76.204 kg Weight Weight Reported by Patient Measurement Method Physical Exam General Appearance: well developed/nourished, no apparent distress, alert, awake Head: normal appearance Eyes: Bilateral: normal appearance. Respiratory: normal breath sounds Cardiovascular: regular rate/rhythm Peripheral Pulses: 2+ femoral (R), 2+ femoral (L), 1+ popliteal (R), 0 popliteal (L), 0 tibialis posterior (R), 0 tibialis posterior (L), 0 dorsalis pedis (R), 0 dorsalis pedis (L) Gastrointestinal: soft, non-tender Extremities: swelling, tenderness, left leg: Erythema lower calf towards ankle, with tenderness, no crepitus. Calf and cueva soft. Positive flexion and extension of left ankle. Foot with minimal erythema., lower extremities: superficial wounds bilateral cueva areas Neurologic/Psych: no motor/sensory deficits, awake, alert, oriented x 3 Assessment/Plan Assessment/Plan #1. Left leg cellulitis. Likely acute event with chronic wounds. Continue antibiotics for now. Leg elevation to help control edema. #2. Normal left low 20 arterial ultrasound. No obvious occlusive processes noted on ultrasound. Abnormal waveforms can be suggestive of atherosclerosis/calcinosis. However, current processes does not appear to be a vascular issue per se. #3. Chronic cueva wounds. With chronic cueva wounds, may benefit from wound clinic follow-up long-term. Discussed with patient and patient's [id number]. Problem List: 1. Cellulitis 2. Atherosclerosis Other Findings/Comments: PATIENT: EVE SANTILLAN PRESENT AGE: 89 PATIENT ACCOUNT NO: [id number] : [birth year] LOCATION: O ORDERING PHYSICIAN: DULCE BORGES DO SERVICE DATE: 06/21/16 EXAM TYPE: US - US-DUPLEX SCAN LOWER EXT ARTER EXAMINATION: US-LEFT LOW EXTR ARTERIAL DOP CLINICAL INFORMATION: 89-year-old male with decreased dorsalis pedis pulse. Evaluate for PVD. COMPARISON: None TECHNIQUE: Real-time ultrasound and Doppler techniques (integrating B-mode 2-D vascular images, Doppler spectral analysis and color flow Doppler imaging) were utilized to interrogate the lower extremities. FINDINGS: Left lower extremity: Common femoral artery: 116 cm/sec; triphasic waveform Superficial femoral artery proximal: 101 cm/sec; triphasic waveform Superficial femoral artery mid portion: 32 cm/sec; monophasic waveform Superficial femoral artery distal: 48 cm/sec; monophasic waveform Profunda artery: 95 cm/sec; triphasic waveform Popliteal artery: 33 cm/sec; monophasic waveform Posterior tibial artery: 29 cm/sec; monophasic waveform Anterior tibial artery: 53 cm/sec; monophasic waveform Dorsalis pedis artery: 35 cm/sec; monophasic waveform ADDITIONAL FINDINGS: None. IMPRESSION: Findings suggest moderate peripheral arterial disease. There are abnormal waveforms and decreased peak systolic velocities involving the mid superficial femoral artery, popliteal artery and below the knee vessels. Greater sensitivity and specificity can be obtained with pre-and post exercise PVRs with AFUA calculations. Also consider dedicated CTA for further anatomical detail. DICTATED BY: LOBO MCGILL DO DATE/TIME DICTATED:06/22/16813 SHIP'S SURVEYOR:KENNETH DATE/TIME TRANSCRIBED:06/22/16813 CONFIDENTIAL, DO NOT COPY WITHOUT APPROPRIATE AUTHORIZATION. <Electronically signed in Other Vendor System> SIGNED BY: LOBO MCGILL DO 23 Consult Acknowledgment - Thank you for your consult request.
--- NOTE | 2016-06-23 13:35 | PN- Cardiology ---
Subjective Subjective: The patient is sitting comfortably in a chair. He is mildly confused. No cardiac symptoms. No chest pain. No palpitations. No shortness of breath. No diaphoresis. I was asked to reevaluate the patient because of concern about possible atrial fibrillation on his EKG. Short runs of nonsustained ventricular tachycardia noted on telemetry Objective Vital Signs and I&Os Vital Signs Date Time Temp Pulse Resp B/P B/P Pulse O2 O2 Flow FiO2 Mean Ox Delivery Rate 06/23 0756 97.6 72 14 108/70 96 Room Air 06/23 0022 98.3 62 20 112/60 97 Room Air 06/22 1639 98.4 71 20 110/60 96 Room Air Intake & Output 06/23 0806/23 0000 06/22 0000 Intake Total 120 420 880 696 100 Output Total 400 800 200 300 Balance -280 -380 680 396 100 Intake, IV 20 400 556 Intake, Oral 120 400 480 140 100 Number 0 Bowel Movements Output, Other 500 Output, Urine 400 300 200 300 Patient 168 lb 168 lb Weight Weight Reported by Patient Measurement Method Physical Exam: Gen: NAD HEENT: normal Lungs: bilateral rales, 1/6 systolic murmur Abdomen: Soft, nontender, no masses Extremities: 1+ edema Neuro: Alert and oriented x 3, cranial nerves intact Current Medications: Current Medications Sig/Bennie Start time Last Medication Dose Route Stop Time Status Admin Acetaminophen 650 MG Q6P PRN 06/21 2245 AC PO Ampicillin Sodium/ 1,500 MG Q12H 06/22 0800 DC 06/22 Sulbactam Sodium IV 0836 Sodium Chloride 100 ML Bisacodyl 10 MG DAILY PRN 06/23 1200 AC AK Ceftazidime 1,000 MG Q12 06/22 2200 AC 06/23 IV 0932 Heparin Sodium 5,000 UNIT Q8 06/22 2200 AC 06/23 (Porcine) SC 0548 Heparin Sodium 25,000 UNIT Q24H 06/22 0145 DC 06/22 (Porcine) IV 0150 Sodium Chloride 500 ML Levothyroxine Sodium 0.1 MG DAILY AC 06/22 0700 AC 06/23 PO 0548 Oxycodone/ 1 TAB Q6P PRN 06/22 1345 AC 06/23 Acetaminophen PO 0548 Tramadol HCl 50 MG ONCE ONE 06/23 0100 DC 06/23 PO 06/23 0101 0059 Results Last 48 Hrs of Labs/Mics: Laboratory Tests 06/23/16 0650: Anion Gap 13, Estimated GFR 23 L, BUN/Creatinine Ratio 23.1, Phosphorus 5.3 H, Magnesium 2.3, CBC w Diff NO MAN DIFF REQ, RBC 3.53 L, MCV 81.0, MCH 26.2 L, RDW 20.6 H, MPV 6.6 L, Gran % 86.6 H, Lymphocytes % 6.1 L, Monocytes % 6.1, Eosinophils % 1.0, Basophils % 0.2, Absolute Granulocytes 9.0 H, Absolute Lymphocytes 0.6 L, Absolute Monocytes 0.6, Absolute Eosinophils 0.1, Absolute Basophils 0, PUBS MCHC 32.3 L 06/22/16 1715: Fluid WBC 181 H, Fld Mesothelial Cells 84, Fld Total RBCs Counted 10 H 06/22/16 1715: Lymphocytes 14, % Normal PMNs 2, Fluid Glucose 142, Fluid Total Protein 2.5, Fluid Albumin < 1.0, Fluid LDH 287, Fluid Amylase < 30 06/22/16 1530: APTT Cancelled 06/22/16 0819: APTT 109 *H 06/22/16 0650: Anion Gap 10, Estimated GFR 27 L, BUN/Creatinine Ratio 25.2 H, Troponin I 0.40 *H, CBC w Diff NO MAN DIFF REQ, RBC 3.51 L, MCV 81.6, MCH 26.0 L, RDW 20.9 H, MPV 6.6 L, Gran % 90.6 H, Lymphocytes % 4.4 L, Monocytes % 4.7, Eosinophils % 0.3, Basophils % 0 L, Absolute Granulocytes 9.8 H, Absolute Lymphocytes 0.5 L , Absolute Monocytes 0.5, Absolute Eosinophils 0, Absolute Basophils 0, PUBS MCHC 31.8 L 06/21/16 2310: Lactic Acid 1.3, Troponin I 0.41 *H 06/21/16 1830: Lactic Acid 1.2 06/21/16 1709: Anion Gap 10, Estimated GFR 30 L, BUN/Creatinine Ratio 26.7 H, Glucose 132 H, Calcium 7.7 L, Total Bilirubin 0.6, AST 21, ALT 36, Alkaline Phosphatase 107, Troponin I 0.32 *H, Total Protein 5.7 L, Albumin 2.3 L, Globulin 3.4, Albumin/ Globulin Ratio 0.7 L, TSH &T3 &Free T4 Intrp 1.560, CBC w Diff NO MAN DIFF REQ, RBC 3.66 L, MCV 80.8, MCH 25.8 L, RDW 20.8 H, MPV 6.4 L, Gran % 91.9 H, Lymphocytes % 2.1 L, Monocytes % 4.5, Eosinophils % 0.8, Basophils % 0.7, Absolute Granulocytes 8.5 H, Absolute Lymphocytes 0.2 L, Absolute Monocytes 0.4, Absolute Eosinophils 0.1, Absolute Basophils 0.1, PUBS MCHC 32.0 L Recent Imaging Studies: EKG tracing is independently reviewed, and reveals ectopic atrial rhythm at 68 bpm with right bundle-branch block. Inferior and anterior infarct age undetermined are noted. Assessment/Plan Assessment/Plan Assessment: 1. Bullous pemphigoid 2. Cellulitis 3. Negative bacteremia 4. Abnormal EKG 5. Nonsustained VT Plan: * Review of the EKGs reveals that P waves are present prior to most QRS complexes, which confirms that the rhythm is ectopic atrial rhythm or sinus rhythm. I do not see evidence of atrial fibrillation at this time. * Continue to monitor on telemetry for evaluation of arrhythmias. * Antibiotic therapy as per ID Continue telemetry? Yes
[2016-06-23 15:30] VITALS: BP 122/70
--- NOTE | 2016-06-23 15:48 | ULTRASOUND REPORT ---
EXAMINATION: US RETROPERITONEAL COMPLETE (RENAL) CLINICAL INFORMATION: Obstructive uropathy. Increasing creatinine levels. COMPARISON: Right upper quadrant abdominal ultrasound 06/22/2016. Abdominal ultrasound 02/14/2016. TECHNIQUE: Real-time imaging of the kidneys and bladder. FINDINGS: RIGHT KIDNEY: 7.2 x 4.4 x 3.9 cm (SAG x AP x TRV). The kidney is atrophic, but normal in contour contour, and echogenicity. Renal cortical thinning. A 0.8 x 0.5 x 0.5 cm cyst is present within the midpole of the right kidney. No calculi. No hydronephrosis. LEFT KIDNEY: 9.0 x 5.0 x 5.0 cm (SAG x AP x TRV). The kidney is atrophic, but normal in contour, and echogenicity. Renal cortical thinning. No calculi. A 1.6 x 2.0 x 1.9 cm simple cyst is present within the lower pole of the left kidney. No hydronephrosis. BLADDER: Well-distended and filled with clear hypoechoic urine. Nonvisualization of the bilateral ureteral jets. Prevoid bladder volume is 62 mL. OTHER: Incidental note is made of a focal hypoechoic mass with a peripheral hyperechoic rim within the left hepatic lobe measuring approximately 3.4 x 3.0 x 3.3 cm; previously, 3.6 x 3.2 x 3.7 cm. Intra-abdominal ascites is identified and appears moderate in volume surrounding the liver. IMPRESSION: 1. Bilateral renal atrophy and renal cortical thinning. Bilateral simple renal cysts visualized measuring up to 0.8 cm within the midpole of the right kidney and 2.0 cm within the lower pole of the left kidney. 2. Redemonstrated is a 3.4 x 3.0 x 3.3 cm focal hypoechoic mass within the left hepatic lobe with a peripheral hypoechoic rim. Given the patient's underlying clinical risk factors, hepatoma cannot be excluded. A dedicated multiphase contrast-enhanced MRI of the abdomen (liver mass protocol) would be helpful in further evaluation. 3. Moderate intra-abdominal ascites.
[2016-06-24 00:53] VITALS: BP 130/60
[2016-06-24 07:59] VITALS: BP 124/78
--- NOTE | 2016-06-24 08:16 | Discharge Summary ---
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 Patient was sent from from home by visiting nurse stating that he had increased left leg swelling. Patient was complaining of lower extremity pain. Patient had chronic bilateral lower extremity wounds secondary to bullous pemphigoid. Vitals: Afebrile, HR, RR, blood pressure, O2 saturation in acceptable range. On exam: A O 3, cooperative, no acute distress, bilateral lower extremity and upper extremity edema and mild edema with denuded skin and blisters draining serous fluid, left lower extremity has worse redness. neck supple, mucosa moist, no focal neurological deficit, CVS: S1-S2, irregular RS: Clear to auscultate bilaterally. Abdomen: Soft, NT, ND, bowel sounds present, catheter present, no signs of inflammation or cellulitis. Labs: WBC 9.2, neutrophil 91%, hemoglobin 9.4, hematocrit 29.6, platelet 214, chloride 109, bicarbonate 16, BUN 56, creatinine 2.1, glucose 132, troponin 0.32 , albumin 2.3 EKG ? A. fib CXR: No acute pulmonary process. Pulmonary hypoinflation and bronchovascular crowding. Stable prominence of the cardiac silhouette, without overt pulmonary edema. Bilateral lower extremity Venous Doppler: Normal triplex scan without evidence of deep venous thrombosis involving the lower extremities. Bilateral lower extremity arterial Doppler findings suggested moderate peripheral arterial disease involving Left mid superficial femoral artery, popliteal artery and below the knee vessels. He was started on telemetry floor. There was a question of atrial fibrillation on senior account executive so he was started on IV heparin drip. Upon cardiology evaluation, he was found to have sinus rhythm with multiple PVCs/PACs but not atrial fibrillation. Per cardio similar finding was found on an outpatient Holter monitor in January of 2016. IV heparin drip was discontinued. Patient had a chronic troponin elevation and he had no evidence of acute coronary syndrome. ECHOCARDIOGRAM CONCLUSIONS Left ventricular cavity size normal. Left ventricular wall thickness moderately increased. No obvious regional wall motion abnormalities. Left ventricular ejection fraction is estimated at 55 %. Right ventricle not well visualized, grossly normal. Mild right atrial dilatation. Mild left atrial dilatation. Moderate tricuspid regurgitation. Unable to estimate the right ventricular systolic pressure. No pericardial effusion. He was also seen by infectious disease specialist because of gram-negative rods bacteremia. Source was most likely lower extremity cellulitis but SBP was also a possibility. Patient was started on Unasyn upon admission that was later changed to Ceftazidime by ID. ascitic fluid was drained and sent to lab. Results did not show evidence for SBP. US-LIMITED ABDOMEN FINDINGS: Moderate amount of free fluid is identified at all 4 quadrants of the abdomen (left greater than right). Antibiotics were switched to IV ceftriaxone and later on PO ciprofloxacin. At the time of discharge, he will be continued on PO Ciprofloxacin till July 07. He was also seen by wound care. Later on it was decided to drain ascitic fluid 3 times weekly while inpatient too. During the course of hospitalization he was very agitated and refusing all labs and medications. This was thought to be hospital induced delirium. Patient returned to his baseline in 24 hours and did not have any further episodes of agitation. On admission his creatinine was 2.1 that was his baseline. In hospital his creatinine bumped up to 2.8. He was seen by nephrology who recommended to change diet 2 g sodium 2 g potassium. Dialysis was not a consideration. Creatinine continued to be elevated at the time of discharge. Allergies: Coded Allergies: No Known Allergies (05/29/16) Pertinent Lab Results: Vital Signs Date Time Temp Pulse Resp B/P B/P Pulse O2 O2 Flow FiO2 Mean Ox Delivery Rate 06/28 1132 Room Air 06/28 0817 97.5 64 18 126/70 97 Room Air 06/28 0000 Room Air 06/27 2351 97.9 85 18 124/72 97 Room Air 06/27 1632 97.6 61 16 118/68 96 Room Air 06/27 1356 Room Air 06/27 0807 97.7 80 18 120/72 97 Room Air 06/27 0055 98.0 80 16 112/64 98 Room Air 05/09 1711 98.1 71 16 102/70 99 Room Air 05/09 1541 Room Air 05/09 0823 96.1 72 18 110/68 96 Room Air 05/08 1530 98.2 79 16 108/68 97 Room Air 05/08 1023 Room Air 05/08 0803 97.5 67 20 126/74 98 Room Air 05/07 2353 98.1 73 20 130/78 97 Room Air 05/07 1558 97.8 59 16 122/62 97 Room Air 05/07 0759 97.0 50 16 124/78 99 Room Air 05/07 0053 98.6 69 20 130/60 94 Room Air 05/06 1530 97.9 72 18 122/70 97 Room Air 05/06 0756 97.6 72 14 108/70 96 Room Air 05/06 0022 98.3 62 20 112/60 97 Room Air 05/05 1639 98.4 71 20 110/60 96 Room Air 05/05 1052 Room Air 05/05 0820 97.7 82 20 108/52 95 Room Air 05/04 2200 97 Room Air 05/04 2137 97.7 56 18 112/56 96 05/04 2050 Room Air 05/04 2048 96.4 74 18 127/61 97 Room Air 05/04 1833 82 18 129/59 98 Room Air 05/04 1629 Room Air 05/04 1614 98.6 85 18 120/62 98 Room Air Last 24 Hours I&Os 06/28 1600 06/28 0800 06/28 0000 Intake Total 120 240 Output Total Balance 120 240 Intake, Oral 120 240 Number 2 Bowel Movements Microbiology Date/Time Procedure - Status Source Growth 06/23 030 Urine Culture - COMP URINE ROUT 06/22 1714 Body Fluid Culture - COMP BODY FLUID 06/22 1714 Gram Stain - COMP BODY FLUID 06/22 2007 Blood Culture - COMP BLOOD SERRATIA MARCESCENS Orders Procedure Date/time Status Therapeutic Activities 06/28 UNK Complete Change service to 06/27 2128 Active CBC WITHOUT DIFFERENTIAL 06/27 599 Complete BASIC ELECTROLYTES PLUS BUN&CR 06/27 599 Complete Therapeutic Activities 06/27 UNK Complete Therapeutic Exercise 06/27 UNK Complete House Staff 06/27 UNK Active Anticipated Discharge 06/27 UNK Active Discontinue Telemetry/Monitor 06/27 UNK Active EKG 06/27 UNK Active BASIC ELECTROLYTES PLUS BUN&CR 06/26 0600 Complete Therapeutic Activities 06/26 UNK Complete Gait Training 06/26 UNK Complete Nursing Misc 06/26 UNK Complete Therapeutic Activities 06/25 UNK Complete Therapeutic Exercise 06/25 UNK Complete Gait Training 06/25 UNK Complete Nursing Misc 06/25 UNK Active Disposition Summary Disposition Principal Diagnosis: Bilateral lower extremity pain and cellulitis Gram-negative bacteremia Additional Diagnosis: Mild acute on chronic renal insufficiency Discharge Disposition: STR Discharge Instructions General Discharge Information Code Status: Full Code Patient's Diet: Heart healthy diet 2 g sodium 2 g potassium Patient's Activity: With assistance Follow-Up Instructions/Appts: 1. Please follow-up with your regular doctor after discharge 2. Please follow-up with your pals specialist after discharge 3. Please follow-up with your kidney doctor after discharge 4. Please follow up with your [employer]eder after discharge. Medications at Discharge Discharge Medications: Stop taking the following medications: Doxycycline Hyclate (Doxycycline Hyclate) 100 MG CAPSULE ORAL TWICE DAILY Qty = 60 Betamethasone Dipropionate (Betamethasone Dipropionate) 0.05 % OINT...G. On the skin TWICE DAILY Qty = 45 Triamcinolone Acetonide (Triamcinolone Acetonide) 0.1 % OINT...G. On the skin TWICE DAILY as needed for RASH Qty = 1 Minocycline HCl (Minocycline HCl) 100 MG CAPSULE ORAL TWICE DAILY Qty = 60 Continue taking these medications: Cyanocobalamin (Vitamin B-12) 1,000 MCG TABLET 1 Tablet ORAL DAILY Comments: Last Taken: 02/15/16 Time: 9:30 AM Vit A/C/E AC/Znox/Cupric Oxide (Eye Vitamin-Minerals Tablet) 1 EACH TABLET 1 Tablet ORAL DAILY Comments: Last Taken: NOT GIVEN IN HOSPITAL Time: Cholecalciferol (Vitamin D3) 1,000 UNIT TABLET 2,000 International Unit ORAL DAILY Days = 30 Comments: Last Taken:02/15/16 Time:1000 Levothyroxine Sodium (Levothyroxine Sodium) 100 MCG TABLET 1 Tablet ORAL DAILY Qty = 30 Clobetasol Propionate (Clobetasol Propionate) 0.05 % OINT...G. 1 Application On the skin TWICE DAILY Qty = 60 Instructions: apply to affected area(s) Diclofenac Sodium (Voltaren) 1 % GEL..GRAM. 1 Gram On the skin 4 TIMES A DAY Qty = 1 Instructions: apply to affected area(s) Silver Sulfadiazine (Silvadene) 1 % CREAM..G. 1 Application On the skin DAILY Qty = 100 Instructions: apply to affected area(s) Start taking the following new medications: Ciprofloxacin HCl (Cipro) 500 MG TABLET 1 Tablet ORAL EVERY 24 HOURS Days = 9 No Refills Polyethylene Glycol 3350 (Miralax) 17 GRAM/DOSE POWDER 17 Gram ORAL DAILY Days = 30 No Refills Copies To: MARZENA WALKER,SRAAH Oropeza; CHAYITO WALKER,MIMI Valles; RON WALKER,BAM Ferro; JOHANN WALKER, JANNA Patterson
--- NOTE | 2016-06-24 08:27 | PN- Housestaff ---
CATHLEEN WALKER,LAVONNE 06/24/16 0827: Subjective Follow-up For: Bilateral lower extremity pain and cellulitis gram-negative bacteremia Mild acute on chronic renal insufficiency Subjective: Patient is lying down comfortably in bed having breakfast. Family at bedside reports that the patient is more confused than usual. Patient states 'I didnt know I was in [place] till this morning.' Otherwise reports no pain or fevers overnight. Review of Systems Constitutional: Reports: see HPI. Objective Last 24 Hrs of Vital Signs/I&O Vital Signs Date Time Temp Pulse Resp B/P B/P Pulse O2 O2 Flow FiO2 Mean Ox Delivery Rate 06/24 0759 97.0 50 16 124/78 99 Room Air 06/24 0053 98.6 69 20 130/60 94 Room Air 06/23 1530 97.9 72 18 122/70 97 Room Air Intake & Output 06/24 1600 06/24 0800 06/24 0000 Intake Total 240 600 Output Total 350 350 Balance -110 250 Intake, Oral 240 600 Number 1 Bowel Movements Output, Urine 350 350 Physical Exam General Appearance: Alert, No Acute Distress, oriented to place and person Lungs: Clear to Auscultation, Normal Air Movement Abdomen: Normal Bowel Sounds, Soft, No Tenderness, Port present in the RUQ. No erythema or tenderness noted around it. Extremities: Currently in bandages. Current Medications: Current Medications Sig/Bennie Start time Last Medication Dose Route Stop Time Status Admin Acetaminophen 650 MG Q6P PRN 06/21 2245 AC PO Bisacodyl 10 MG DAILY PRN 06/23 1200 AC CO Ceftazidime 1,000 MG Q12 06/22 2200 AC 06/23 IV 2120 Heparin Sodium 5,000 UNIT Q8 06/22 2200 AC 06/23 (Porcine) SC 2120 Levothyroxine Sodium 0.1 MG DAILY AC 06/22 0700 AC 06/23 PO 0548 Oxycodone/ 1 TAB Q6P PRN 06/22 1345 AC 06/24 Acetaminophen PO 0012 Polyethylene Glycol 17 GM DAILY 06/23 1437 AC 06/23 PO 1646 Senna/Docusate Sodium 1 TAB BID 06/23 1437 AC 06/23 PO 2120 Last 24 Hrs of Lab/Jerel Results Last 24 Hrs of Labs/Mics: Laboratory Tests 06/24/16 0806: Sodium Pending, Potassium Pending, Chloride Pending, Carbon Dioxide Pending, Anion Gap Pending, BUN Pending, Creatinine Pending, BUN/Creatinine Ratio Pending , Phosphorus Pending, Magnesium Pending, CBC w Diff Pending, WBC Pending, RBC Pending, Hgb Pending, Hct Pending, MCV Pending, MCH Pending, RDW Pending, Plt Count Pending, MPV Pending, PUBS MCHC Pending Lines/Diet/Fluids Lines: peripheral lines Assessment/Plan Assessment: He is 89-year-old man with past medical history of hypertension, hyperlipidemia, diastolic heart failure, History of Nonsustained wide complex tachycardia with periods of bradycardia on metoprolol, Bullous pemphigoid, 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 Gram-negative bacteremia source could be lower extremity cellulitis versus SBP 2. Chronic renal insufficiency 3. Chronically elevated troponins 4. Moderate peripheral arterial disease Ascitic fluid: Fluid WBC 181 H, Fld Mesothelial Cells 84, Fld Total RBCs Counted 10 H 06/22/16 1715: Lymphocytes 14, % Normal PMNs 2, Fluid Glucose 142, Fluid Total Protein 2.5, Fluid Albumin < 1.0, Fluid LDH 287, Fluid Amylase < 30 Problem List: #1 Abnormal EKG: * This was initially thought to be atrial fibrillation, but heparin gtt was discontinued as this was later found to be regular with PAC's. 2# gram-negative bacteremia and cellulitis versus spontaneous bacterial peritonitis. * SBP was ruled out. * Gram-negative bacteremia continue Fortaz * Follow infectious disease recommendation #3 peripheral vascular disease. * Consider with pre-and post exercise PVRs with AFUA calculations per vascular surgeon recommendation * dedicated CTA for further anatomical detail. * #4 hypothyroidism- continue Synthroid #5 constipation- MiraLAX and Dulcolax DVT prophylaxis-heparin 5000 units every 8 hours subcutaneous Pain management-Percocet 1 tab every 6 as needed Problem List: 1. Cellulitis Pain Ratin Pain Location: Both lower extremities Pain Goal: Pain 4 or less Pain Plan: Per EMR Tomorrow's Labs & Rationales: CBC needed to monitor for effectiveness of antibiotic therapy. DVT/Prophylaxis: pharmacological Consulting Request: Consulting Specialty: Infectious Disease XU WALKER,ZAIDAINOCENCIOSigrid 06/24/16 1434: Attending MD Review Statement Attending Statement Attending MD Statement: examined this patient, discuss w/resident/PA/CHILD WELFARE SPECIALIST, agreed w/resident/PA/CHILD WELFARE SPECIALIST, discussed with family, reviewed EMR data (avail), discussed with nursing, amended to note Attending Assessment/Plan: Patient seen and examined. A lateral oriented to time and person and place. Spoke with family at bedside. Refill the patient is a little more confused today. They do admit that he has feels of confusion on and off for baseline. Overnight on telemetry he had a 16 beat run of V. tach. He had another episode for about 8 beats this morning. She is afebrile. He is hemodynamically stable. He denies chest pain. Denies palpitations. On exam heart sounds are regular. Lungs are clear to auscultation bilaterally. Abdomen is soft and nontender. Has bilateral pedal edema with dressing over left lower extremity. Blood cultures are currently growing Serratia species resistant ceftaz edema. Recommendations: -Change antibiotic to ceftriaxone IV as recommended by the ID service. -Cardiology consultation for evaluation of his nonsustained ventricular tachycardia. He was determined not to be in atrial fibrillation following evaluation of his EKG yesterday. Continue telemetry monitoring for now. -Abnormal masses chronic. No further intervention at present.
[2016-06-24 09:26] LABS: ABSOLUTE BASOPHIL COUNT 0 /CUMM (0.0-0.2); ABSOLUTE EOSINOPHIL COUNT 0.1 /CUMM (0.0-0.7); ABSOLUTE GRANULOCYTE CT 7.7 /CUMM (1.4-6.5); ABSOLUTE LYMPH COUNT 0.4 /CUMM (1.2-3.4); ABSOLUTE MONOCYTE COUNT 0.4 /CUMM (0.10-0.60); BASOPHIL % 0.1 % (0.0-2.0); EOSINOPHIL % 1.4 % (0-5); GRANULOCYTE % 88.5 % (42.2-75.2); HEMATOCRIT 27.3 % (42-52); MEAN CORPUSCULAR HGB 26.1 PG (27.0-31.0); MEAN CORPUSCULAR HGB CONC 32.4 G/DL (33.0-37.0); MEAN CORPUSCULAR VOLUME 80.6 FL (80.0-94.0); MEAN PLATELET VOLUME 6.6 FL (7.4-10.4); PLATELET COUNT 221 /CUMM (130-400); RED BLOOD CELL CT 3.39 /CUMM (4.70-6.10); WHITE BLOOD CELL COUNT 8.8 /CUMM (4.8-10.8)
--- NOTE | 2016-06-24 09:43 | PN- Infect Dx ---
Subjective Subjective: Afebrile without complaints. He was felt to be more confused this morning. Objective Last 24 Hrs of Vital Signs/I&O Vital Signs Date Time Temp Pulse Resp B/P B/P Pulse O2 O2 Flow FiO2 Mean Ox Delivery Rate 06/24 0759 97.0 50 16 124/78 99 Room Air 06/24 0053 98.6 69 20 130/60 94 Room Air 06/23 1530 97.9 72 18 122/70 97 Room Air Intake & Output 06/24 1600 06/24 0800 06/24 0000 Intake Total 240 600 Output Total 350 350 Balance -110 250 Intake, Oral 240 600 Number 1 Bowel Movements Output, Urine 350 350 Physical Exam Other Physical Findings: He is lethargic but arousable in no acute distress. He does not appear to be confused at this time. Lungs are clear Heart regular rhythm with no murmur Abdomen is distended, mildly tender on palpation, with no guarding or rebound, with positive bowel sounds Extremities bilateral lower extremities dressings intact Results Last 24 Hours of Lab Results: Laboratory Tests 06/24 805 Chemistry Sodium Pending Potassium Pending Chloride Pending Carbon Dioxide Pending Anion Gap Pending BUN Pending Creatinine Pending BUN/Creatinine Ratio Pending Phosphorus Pending Magnesium Pending Hematology CBC w Diff Pending WBC Pending RBC Pending Hgb Pending Hct Pending MCV Pending MCH Pending RDW Pending Plt Count Pending MPV Pending PUBS MCHC Pending Last 24 Hours of Jerel Results: Blood cultures 2 June 22 positive for Serratia sensitive to Ceftriaxone, Ciprofloxacin, Gentamicin and Bactrim and resistant to Ceftazidime and Unasyn Ascitic fluid culture June 22 negative Urine culture June 22 pending Recent Imaging Studies: Renal ultrasound June 23 reveals bilateral renal atrophy and cortical thinning with no hydronephrosis; a 3.4 x 3 x 3.3 cm focal hypoechoic mass within the left hepatic lobe; moderate intra-abdominal ascites Assessment/Plan Impression: Remains stable with temperatures and white blood cell count remaining normal on Ceftazidime for Serratia isolated from the blood cultures. As the Serratia is resistant to Ceftazidime his antibiotics will need to be adjusted. The source of his bacteremia is most likely the left lower extremity, with evidence of cellulitis, and with workup for other sources, including the ascitic fluid, negative. The hepatic mass is chronic; therefore further workup may not be warranted at this time. Suggestion: 1. Follow-up urine culture 2. Discontinue Ceftazidime 3. Begin Ceftriaxone 1 g IV every 24 hours
[2016-06-24 15:58] VITALS: BP 122/62
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
[2016-06-24 23:53] VITALS: BP 130/78
[2016-06-25 08:03] VITALS: BP 126/74
[2016-06-25 08:05] LABS: ABSOLUTE BASOPHIL COUNT 0 /CUMM (0.0-0.2); ABSOLUTE EOSINOPHIL COUNT 0.2 /CUMM (0.0-0.7); ABSOLUTE GRANULOCYTE CT 7.1 /CUMM (1.4-6.5); ABSOLUTE LYMPH COUNT 0.4 /CUMM (1.2-3.4); ABSOLUTE MONOCYTE COUNT 0.4 /CUMM (0.10-0.60); BASOPHIL % 0.2 % (0.0-2.0); EOSINOPHIL % 2.3 % (0-5); GRANULOCYTE % 87.6 % (42.2-75.2); HEMATOCRIT 27.6 % (42-52); MEAN CORPUSCULAR HGB 26.1 PG (27.0-31.0); MEAN CORPUSCULAR HGB CONC 32.1 G/DL (33.0-37.0); MEAN CORPUSCULAR VOLUME 81.3 FL (80.0-94.0); MEAN PLATELET VOLUME 6.6 FL (7.4-10.4); PLATELET COUNT 234 /CUMM (130-400); RBC DISTRIBUTION WIDTH 20.8 % (11.5-14.5); WHITE BLOOD CELL COUNT 8.1 /CUMM (4.8-10.8)
--- NOTE | 2016-06-25 09:16 | ULTRASOUND REPORT ---
EXAMINATION: US ABDOMEN LIMITED CLINICAL INFORMATION: Abdominal distention. To check for ascites.. COMPARISON: 04/12/2016. TECHNIQUE: Real-time imaging of the 4 quadrants of the abdomen. FINDINGS: Moderate amount of free fluid is identified at all 4 quadrants of the abdomen (left greater than right). IMPRESSION: Moderate amount of ascites.
--- NOTE | 2016-06-25 10:06 | PN- Infect Dx ---
Subjective Subjective: Afebrile without complaints Objective Last 24 Hrs of Vital Signs/I&O Vital Signs Date Time Temp Pulse Resp B/P B/P Pulse O2 O2 Flow FiO2 Mean Ox Delivery Rate 06/25 802 97.5 67 20 126/74 98 Room Air 06/24 2353 98.1 73 20 130/78 97 Room Air 06/24 1558 97.8 59 16 122/62 97 Room Air Intake & Output 06/25 1600 06/25 0800 06/25 0000 Intake Total 50 Output Total 200 500 Balance -150 -500 Intake, Oral 50 Number 2 Bowel Movements Output, Urine 200 500 Physical Exam Other Physical Findings: He appears comfortable in no acute distress Lungs are clear Heart regular rhythm with no murmur Abdomen is distended, nontender with positive bowel sounds Extremities decreased erythema of the left leg, mildly tender to palpation; decreased erythema of both hands, with superficial ulcerations Results Last 24 Hours of Lab Results: Laboratory Tests 06/25 06/24 0618 1800 Chemistry Sodium (137 - 145 mmol/L) 137 136 L Potassium (3.5 - 5.1 mmol/L) 5.2 H 5.3 H Chloride (98 - 107 mmol/L) 110 H 109 H Carbon Dioxide (22 - 30 mmol/L) 17 L 15 L Anion Gap (5 - 16) 10 13 BUN (9 - 20 mg/dL) 62 H 63 H Creatinine (0.7 - 1.2 mg/dL) 2.7 H 2.7 H Estimated GFR (>60 ml/min) 22 L 22 L BUN/Creatinine Ratio (7 - 25 %) 23.0 23.3 Magnesium (1.6 - 2.3 mg/dL) 2.5 H Hematology CBC w Diff MAN DIFF ORDERED WBC (4.8 - 10.8 /CUMM) 8.1 RBC (4.70 - 6.10 /CUMM) 3.40 L Hgb (14.0 - 18.0 G/DL) 8.9 L Hct (42 - 52 %) 27.6 L MCV (80.0 - 94.0 FL) 81.3 MCH (27.0 - 31.0 PG) 26.1 L RDW (11.5 - 14.5 %) 20.8 H Plt Count (130 - 400 /CUMM) 234 MPV (7.4 - 10.4 FL) 6.6 L Gran % (42.2 - 75.2 %) 87.6 H Lymphocytes % (20.5 - 51.1 %) 5.0 L Monocytes % (1.7 - 9.3 %) 4.9 Eosinophils % (0 - 5 %) 2.3 Basophils % (0.0 - 2.0 %) 0.2 Absolute Granulocytes (1.4 - 6.5 /CUMM) 7.1 H Absolute Lymphocytes (1.2 - 3.4 /CUMM) 0.4 L Absolute Monocytes (0.10 - 0.60 /CUMM) 0.4 Absolute Eosinophils (0.0 - 0.7 /CUMM) 0.2 Absolute Basophils (0.0 - 0.2 /CUMM) 0 Platelet Estimate (ADEQUATE) ADEQUATE Polychromasia 1+ Poikilocytosis 1+ Anisocytosis 2+ Microcytic Cells 1+ Ovalocytes FEW Elliptocytes 1+ PUBS MCHC (33.0 - 37.0 G/DL) 32.1 L Last 24 Hours of Jerel Results: Urine culture June 6 negative Ascitic fluid culture June 5 negative Assessment/Plan Impression: Doing well with temperatures and white blood cell count remaining normal now on Ceftriaxone Day 2 of treatment for Serratia bacteremia, most likely secondary to cellulitis of the left lower extremity, which appears to be improving. The ascitic fluid cell count was not suggestive of SBP, and he has no other apparent focus of infection. The hepatic mass is chronic; therefore further workup may not be warranted at this time. Suggestion: 1. Follow-up final urine and ascitic fluid culture 2. Discontinue Ceftriaxone 3. Begin Ciprofloxacin 500 mg po every 24 hours
--- NOTE | 2016-06-25 11:09 | PN- Cardiology ---
Subjective Subjective: Still has leg pain. Denies chest pain, dyspnea, or palpitations. Objective Vital Signs and I&Os Vital Signs Date Time Temp Pulse Resp B/P B/P Pulse O2 O2 Flow FiO2 Mean Ox Delivery Rate 06/25 1023 Room Air 06/25 0803 97.5 67 20 126/74 98 Room Air 06/24 2353 98.1 73 20 130/78 97 Room Air 06/24 1558 97.8 59 16 122/62 97 Room Air Intake & Output 06/25 1600 06/25 0806/25 0000 06/24 1600 06/24 0800 06/24 0000 Intake Total 50 480 240 600 Output Total 200 500 400 350 350 Balance -150 -500 80 -110 250 Intake, Oral 50 480 240 600 Number 2 1 1 Bowel Movements Output, Urine 200 500 400 350 350 Physical Exam: General: no apparent distress. Alert. Eyes: No obvious scleral icterus. HEENT: no JVD Cardiovascular: Normal intensity S1/S2. One out of 6 systolic murmur Respiratory: Mildly decreased air entry without rales Abdomen: distended without guarding, abdominal catheter in place (right) Musculoskeletal: 1+ bilateral lower extremity edema Skin: Warm, stasis changes noted, ulcerations noted with dressings in place Neurologic: No gross focal deficits noted. Current Medications: Current Medications Sig/Bennie Start time Last Medication Dose Route Stop Time Status Admin Acetaminophen 650 MG Q6P PRN 06/21 2245 AC PO Bisacodyl 10 MG DAILY PRN 06/23 1200 AC DE Ceftazidime 1,000 MG Q12 06/22 2200 DC 06/24 IV 1018 Ceftriaxone Sodium 1,000 MG DAILY 06/25 1000 AC IV Heparin Sodium 5,000 UNIT Q8 06/22 2200 AC 06/25 (Porcine) SC 0605 Levothyroxine Sodium 0.1 MG DAILY AC 06/22 0700 AC 06/25 PO 0605 Oxycodone/ 1 TAB Q6P PRN 06/22 1345 AC 06/24 Acetaminophen PO 2141 Polyethylene Glycol 17 GM DAILY 06/23 1437 AC 06/24 PO 1018 Senna/Docusate Sodium 1 TAB BID 06/23 1437 AC 06/24 PO 2140 Sodium Polystyrene 30 ML ONCE ONE 06/24 1200 DC 06/24 Sulfonate PO 06/24 1201 1250 Results Last 48 Hrs of Labs/Mics: Laboratory Tests 06/25/16 0618: Anion Gap 10, Estimated GFR 22 L, BUN/Creatinine Ratio 23.0, Magnesium 2.5 H, CBC w Diff MAN DIFF ORDERED, RBC 3.40 L, MCV 81.3, MCH 26.1 L, RDW 20.8 H, MPV 6.6 L, Gran % 87.6 H, Lymphocytes % 5.0 L, Monocytes % 4.9, Eosinophils % 2.3, Basophils % 0.2, Absolute Granulocytes 7.1 H, Absolute Lymphocytes 0.4 L, Absolute Monocytes 0.4, Absolute Eosinophils 0.2, Absolute Basophils 0, Platelet Estimate ADEQUATE, Polychromasia 1+, Poikilocytosis 1+, Anisocytosis 2+, Microcytic Cells 1+, Ovalocytes FEW, Elliptocytes 1+, PUBS MCHC 32.1 L 06/24/16 1800: Anion Gap 13, Estimated GFR 22 L, BUN/Creatinine Ratio 23.3 06/24/16 0806: Anion Gap 11, Estimated GFR 21 L, BUN/Creatinine Ratio 23.2, Phosphorus 5.3 H, Magnesium 2.3, CBC w Diff NO MAN DIFF REQ, RBC 3.39 L, MCV 80.6, MCH 26.1 L, RDW 21.0 H, MPV 6.6 L, Gran % 88.5 H, Lymphocytes % 4.9 L, Monocytes % 5.1, Eosinophils % 1.4, Basophils % 0.1, Absolute Granulocytes 7.7 H, Absolute Lymphocytes 0.4 L, Absolute Monocytes 0.4, Absolute Eosinophils 0.1, Absolute Basophils 0, PUBS MCHC 32.4 L Recent Imaging Studies: Telemetry tracings were personally reviewed and shows sinus rhythm with significant artifact and frequent PACs Echocardiogram (not [facility] but was read on 06/22/2016) shows normal ejection fraction with moderate LVH and no significant pericardial effusion. Renal US: IMPRESSION: 1. Bilateral renal atrophy and renal cortical thinning. Bilateral simple renal cysts visualized measuring up to 0.8 cm within the midpole of the right kidney and 2.0 cm within the lower pole of the left kidney. 2. Redemonstrated is a 3.4 x 3.0 x 3.3 cm focal hypoechoic mass within the left hepatic lobe with a peripheral hypoechoic rim. Given the patient's underlying clinical risk factors, hepatoma cannot be excluded. A dedicated multiphase contrast-enhanced MRI of the abdomen (liver mass protocol) would be helpful in further evaluation. 3. Moderate intra-abdominal ascites. Assessment/Plan Assessment/Plan 1. Bullous pemphigoid with cellulitis and bacteremia 2. 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 Acute on Chronic renal insufficiency 4. Chronically elevated troponin 5. Chronic anemia 6. History of Nonsustained wide complex tachycardia with periods of bradycardia on metoprolol 7. Frequent PACs No recurrent NSVT bursts overnight. He has had the nonsustained runs in the past but is not on beta briana as he developed bradycardia with previous beta briana therapy. Would agree with Renal that he should not be getting Kayexalate for only mild hyperkalemia. Would try and maintain a low potassium diet. He again had a banana on his table this morning. Echocardiogram (not in [facility] but was read on 06/22/2016) shows normal ejection fraction with moderate LVH and no significant pericardial effusion. I spoke with his visiting nurse today and they told me they were regularly removing 500 mL of ascitic fluid 3 times weekly via his drain. This should be continued while in the hospital. Remains on intravenous antibiotics. He remains hemodynamically stable. Star Pollock MD [facility] Continue telemetry? Yes
--- NOTE | 2016-06-25 12:38 | PN- Nephrology ---
Assessment/Plan Assessment: 1. 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 infiltrative cardiomyopathy i.e. amyloid) and presumed nephrosclerosis 2. BRIAN secondary to sepsis-induced acute tubular necrosis 3. Hyperkalemia -improved 4. Serratia marcescens sepsis presumably secondary to left leg cellulitis in setting of bullous pemphigoid with chronic skin ulcerations 5. 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 Multiple comorbidities Suggestion: 1. Antibiotic therapy per ID 2. Continue to monitor intake and output, chemistries daily 3. Dialysis not a consideration Subjective Subjective: Patient has apparently been confused, agitated and somewhat verbally abusive today. Renal function not significantly different. I/O: 720/1250. Antibiotic regimen has been adjusted by ID. Objective Vital Signs and I&Os Vital Signs Date Time Temp Pulse Resp B/P B/P Pulse O2 O2 Flow FiO2 Mean Ox Delivery Rate 06/25 1023 Room Air 06/25 0803 97.5 67 20 126/74 98 Room Air 06/24 2353 98.1 73 20 130/78 97 Room Air 06/24 1558 97.8 59 16 122/62 97 Room Air Intake & Output 06/25 1600 06/25 0400 06/24 1600 06/24 0400 06/23 1600 06/23 0400 Intake Total 50 720 600 600 420 Output Total 400 500 750 350 600 800 Balance -350 -500 -30 250 0 -380 Intake, IV 20 Intake, Oral 50 720 600 600 400 Number 1 2 2 0 Bowel Movements Output, Other 500 Output, Urine 400 500 750 350 600 300 Physical Exam: General: Well-developed, elderly white male, easily agitated Skin: No rash or jaundice, dressings on legs and right wrist are intact HEENT: Conjunctivae pale, sclerae anicteric, mucous membranes moist Neck: Without masses or thyromegaly, no supraclavicular or cervical adenopathy Chest: Clear anterolaterally Heart: Regular rate and rhythm without S3 or rub Abdomen: Soft, nontender with ascites, without palpable masses or organomegaly Extremities: Without cyanosis, dressings on legs and right wrist are intact Neuro: No focal findings, no asterixis or myoclonus Current Medications: Current Medications Sig/Bennie Start time Last Medication Dose Route Stop Time Status Admin Acetaminophen 650 MG Q6P PRN 06/21 2245 AC PO Bisacodyl 10 MG DAILY PRN 06/23 1200 AC PA Ceftriaxone Sodium 1,000 MG DAILY 06/25 1000 AC IV Heparin Sodium 5,000 UNIT Q8 06/22 2200 AC 06/25 (Porcine) SC 0605 Levothyroxine Sodium 0.1 MG DAILY AC 06/22 0700 AC 06/25 PO 0605 Oxycodone/ 1 TAB Q6P PRN 06/22 1345 AC 06/24 Acetaminophen PO 2141 Polyethylene Glycol 17 GM DAILY 06/23 1437 AC 06/24 PO 1018 Senna/Docusate Sodium 1 TAB BID 06/23 1437 AC 06/24 PO 2140 Results Pertinent Lab Results: Laboratory Tests 06/25 06/24 0618 1800 Chemistry Sodium (137 - 145 mmol/L) 137 136 L Potassium (3.5 - 5.1 mmol/L) 5.2 H 5.3 H Chloride (98 - 107 mmol/L) 110 H 109 H Carbon Dioxide (22 - 30 mmol/L) 17 L 15 L Anion Gap (5 - 16) 10 13 BUN (9 - 20 mg/dL) 62 H 63 H Creatinine (0.7 - 1.2 mg/dL) 2.7 H 2.7 H Estimated GFR (>60 ml/min) 22 L 22 L BUN/Creatinine Ratio (7 - 25 %) 23.0 23.3 Magnesium (1.6 - 2.3 mg/dL) 2.5 H Hematology CBC w Diff MAN DIFF ORDERED WBC (4.8 - 10.8 /CUMM) 8.1 RBC (4.70 - 6.10 /CUMM) 3.40 L Hgb (14.0 - 18.0 G/DL) 8.9 L Hct (42 - 52 %) 27.6 L MCV (80.0 - 94.0 FL) 81.3 MCH (27.0 - 31.0 PG) 26.1 L RDW (11.5 - 14.5 %) 20.8 H Plt Count (130 - 400 /CUMM) 234 MPV (7.4 - 10.4 FL) 6.6 L Gran % (42.2 - 75.2 %) 87.6 H Lymphocytes % (20.5 - 51.1 %) 5.0 L Monocytes % (1.7 - 9.3 %) 4.9 Eosinophils % (0 - 5 %) 2.3 Basophils % (0.0 - 2.0 %) 0.2 Absolute Granulocytes (1.4 - 6.5 /CUMM) 7.1 H Absolute Lymphocytes (1.2 - 3.4 /CUMM) 0.4 L Absolute Monocytes (0.10 - 0.60 /CUMM) 0.4 Absolute Eosinophils (0.0 - 0.7 /CUMM) 0.2 Absolute Basophils (0.0 - 0.2 /CUMM) 0 Platelet Estimate (ADEQUATE) ADEQUATE Polychromasia 1+ Poikilocytosis 1+ Anisocytosis 2+ Microcytic Cells 1+ Ovalocytes FEW Elliptocytes 1+ PUBS MCHC (33.0 - 37.0 G/DL) 32.1 L 05/07 05/06 0806 0650 Chemistry Sodium (137 - 145 mmol/L) 135 L 136 L Potassium (3.5 - 5.1 mmol/L) 5.6 H 5.2 H Chloride (98 - 107 mmol/L) 109 H 107 Carbon Dioxide (22 - 30 mmol/L) 14 L 16 L Anion Gap (5 - 16) 11 13 BUN (9 - 20 mg/dL) 65 H 60 H Creatinine (0.7 - 1.2 mg/dL) 2.8 H 2.6 H Estimated GFR (>60 ml/min) 21 L 23 L BUN/Creatinine Ratio (7 - 25 %) 23.2 23.1 Phosphorus (2.5 - 4.5 mg/dL) 5.3 H 5.3 H Magnesium (1.6 - 2.3 mg/dL) 2.3 2.3 Hematology CBC w Diff NO MAN DIFF REQ NO MAN DIFF REQ WBC (4.8 - 10.8 /CUMM) 8.8 10.4 RBC (4.70 - 6.10 /CUMM) 3.39 L 3.53 L Hgb (14.0 - 18.0 G/DL) 8.8 L 9.2 L Hct (42 - 52 %) 27.3 L 28.6 L MCV (80.0 - 94.0 FL) 80.6 81.0 MCH (27.0 - 31.0 PG) 26.1 L 26.2 L RDW (11.5 - 14.5 %) 21.0 H 20.6 H Plt Count (130 - 400 /CUMM) 221 213 MPV (7.4 - 10.4 FL) 6.6 L 6.6 L Gran % (42.2 - 75.2 %) 88.5 H 86.6 H Lymphocytes % (20.5 - 51.1 %) 4.9 L 6.1 L Monocytes % (1.7 - 9.3 %) 5.1 6.1 Eosinophils % (0 - 5 %) 1.4 1.0 Basophils % (0.0 - 2.0 %) 0.1 0.2 Absolute Granulocytes (1.4 - 6.5 /CUMM) 7.7 H 9.0 H Absolute Lymphocytes (1.2 - 3.4 /CUMM) 0.4 L 0.6 L Absolute Monocytes (0.10 - 0.60 /CUMM) 0.4 0.6 Absolute Eosinophils (0.0 - 0.7 /CUMM) 0.1 0.1 Absolute Basophils (0.0 - 0.2 /CUMM) 0 0 PUBS MCHC (33.0 - 37.0 G/DL) 32.4 L 32.3 L 05/05 05/05 05/05 05/05 1715 1715 1635 1530 Coagulation APTT Cancelled Hematology Lymphocytes (%) 14 % Normal PMNs (%) 2 Other Body Source Fluid WBC (0 - 5 /CUMM) 181 H Fld Mesothelial Cells (%) 84 Fld Total RBCs Counted (0 /CUMM) 10 H Fluid Glucose (mg/dL) 142 Fluid Total Protein (g/dL) 2.5 Fluid Albumin (g/dL) < 1.0 Fluid LDH (U/L) 287 Fluid Amylase (U/L) < 30 Urines Urine Color Cancelled Urine Clarity Cancelled Urine pH Cancelled Ur Specific [place] Cancelled Urine Protein Cancelled Urine Ketones Cancelled Urine Nitrite Cancelled Urine Bilirubin Cancelled Urine Urobilinogen Cancelled Ur Leukocyte Esterase Cancelled Ur Microscopic Cancelled Urine Hemoglobin Cancelled Urine Glucose Cancelled
--- NOTE | 2016-06-25 12:39 | PN- Housestaff ---
FARHAD COLES 06/25/16 1239: Subjective Follow-up For: Nonsustained VT Bilateral lower extremity pain and cellulitis gram-negative bacteremia Mild acute on chronic renal insufficiency Subjective: This morning Patient is very agitated and confused. He is refusing all his medications. Does not want to see anyone in his room. Review of Systems Constitutional: Reports: see HPI. Objective Last 24 Hrs of Vital Signs/I&O Vital Signs Date Time Temp Pulse Resp B/P B/P Pulse O2 O2 Flow FiO2 Mean Ox Delivery Rate 06/25 1023 Room Air 06/25 0803 97.5 67 20 126/74 98 Room Air 06/24 2353 98.1 73 20 130/78 97 Room Air Intake & Output 06/25 1600 06/25 0800 06/25 0000 Intake Total 600 50 Output Total 650 200 500 Balance -50 -150 -500 Intake, Oral 600 50 Number 3 2 Bowel Movements Output, Urine 650 200 500 Physical Exam General Appearance: Alert, agitated and confused Skin: bandage intact bilateral lower extremities and dorsum of both hands Other Physical Findings: Physical exam was not performed because patient was very agitated Current Medications: Current Medications Sig/Bennie Start time Last Medication Dose Route Stop Time Status Admin Acetaminophen 650 MG Q6P PRN 06/21 2245 AC PO Bisacodyl 10 MG DAILY PRN 06/23 1200 AC VA Ceftriaxone Sodium 1,000 MG DAILY 06/25 1000 DC IV Ciprofloxacin 500 MG Q24 06/26 1000 AC PO 06/30 0959 Heparin Sodium 5,000 UNIT Q8 06/22 2200 AC 06/25 (Porcine) SC 1418 Levothyroxine Sodium 0.1 MG DAILY AC 06/22 0700 AC 06/25 PO 0605 Oxycodone/ 1 TAB Q6P PRN 06/22 1345 AC 06/24 Acetaminophen PO 2141 Polyethylene Glycol 17 GM DAILY 06/23 1437 AC 06/24 PO 1018 Senna/Docusate Sodium 1 TAB BID 06/23 1437 AC 06/24 PO 2140 Last 24 Hrs of Lab/Jerel Results Last 24 Hrs of Labs/Mics: Laboratory Tests 06/25/16 0618: Anion Gap 10, Estimated GFR 22 L, BUN/Creatinine Ratio 23.0, Magnesium 2.5 H, CBC w Diff MAN DIFF ORDERED, RBC 3.40 L, MCV 81.3, MCH 26.1 L, RDW 20.8 H, MPV 6.6 L, Gran % 87.6 H, Lymphocytes % 5.0 L, Monocytes % 4.9, Eosinophils % 2.3, Basophils % 0.2, Absolute Granulocytes 7.1 H, Absolute Lymphocytes 0.4 L, Absolute Monocytes 0.4, Absolute Eosinophils 0.2, Absolute Basophils 0, Platelet Estimate ADEQUATE, Polychromasia 1+, Poikilocytosis 1+, Anisocytosis 2+, Microcytic Cells 1+, Ovalocytes FEW, Elliptocytes 1+, PUBS MCHC 32.1 L 06/24/16 1800: Anion Gap 13, Estimated GFR 22 L, BUN/Creatinine Ratio 23.3 Assessment/Plan Assessment: He is 89-year-old man with past medical history of hypertension, hyperlipidemia, diastolic heart failure, History of Nonsustained wide complex tachycardia with periods of bradycardia on metoprolol, Bullous pemphigoid, 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 Gram-negative bacteremia source could be lower extremity cellulitis,. ruled out SBP 2. Acute on Chronic renal insufficiency 3. Chronically elevated troponins 4. Moderate peripheral arterial disease 5. Nonsustained VT 6. Hyperkalemia PLAN * Monitor vitals * Cardio consult appreciated * ID consult consult appreciated * Discontinued IV antibiotics today and patient has been started on PO ciprofloxacin * 500 ml Ascitic fluid drainage by abdominal catheter 3 times weekly * Wound care consult appreciated * Avoid nephrotoxins * Echocardiogram * Vascular surgery consult. * No need for Kayexalate unless potassium is more than 6 * Nephro consult appreciated. No consideration for dialysis. * DVT prophylaxis subcutaneous heparin * Pain pathway * Heart healthy diet * Full code Problem List: 1. Cellulitis Pain Ratin Pain Location: left leg Pain Goal: Remain pain free Pain Plan: percocet Tomorrow's Labs & Rationales: bep DVT/Prophylaxis: pharmacological Consulting Request: Consulting Specialty: Infectious Disease AVELINA MOTA 06/26/16 1443: Attending Review Statement Attending Statement Attending MD Statement: examined this patient, discuss w/resident/PA/COMPOSITION WEATHERBOARD APPLIER, agreed w/resident/PA/COMPOSITION WEATHERBOARD APPLIER, reviewed EMR data (avail), discussed with nursing, discussed with case mgmt Attending Assessment/Plan: Agree with the above assessment and plan. Please see my separate attending note for more details.
[2016-06-25 15:30] VITALS: BP 108/68
--- NOTE | 2016-06-25 18:06 | PN- Att Addend ---
Attending MD Review Statement Attending Statement Attending MD Statement: examined this patient, discuss w/resident/PA/LEGAL COMPLIANCE OFFICER, agreed w/resident/PA/LEGAL COMPLIANCE OFFICER, discussed with family, reviewed EMR data (avail), discussed w/ nursing, discussed w/case mgmt Attending Assessment/Plan: Laboratory Tests 06/25/16 0618: Anion Gap 10, Estimated GFR 22 L, BUN/Creatinine Ratio 23.0, Magnesium 2.5 H, CBC w Diff MAN DIFF ORDERED, RBC 3.40 L, MCV 81.3, MCH 26.1 L, RDW 20.8 H, MPV 6.6 L, Gran % 87.6 H, Lymphocytes % 5.0 L, Monocytes % 4.9, Eosinophils % 2.3, Basophils % 0.2, Absolute Granulocytes 7.1 H, Absolute Lymphocytes 0.4 L, Absolute Monocytes 0.4, Absolute Eosinophils 0.2, Absolute Basophils 0, Platelet Estimate ADEQUATE, Polychromasia 1+, Poikilocytosis 1+, Anisocytosis 2+, Microcytic Cells 1+, Ovalocytes FEW, Elliptocytes 1+, PUBS MCHC 32.1 L Vital Signs Date Time Temp Pulse Resp B/P B/P Pulse O2 O2 Flow FiO2 Mean Ox Delivery Rate 06/25 1023 Room Air 06/25 0803 97.5 67 20 126/74 98 Room Air 06/24 2353 98.1 73 20 130/78 97 Room Air Patient seen and examined at bedside. Discussed with patient's family at bedside the care plan. Patient gets ascitic fluid drainage on Saturday redness and Saturday. Patient did not get that drainage done today because of altered mental status and delirium in the morning. We will schedule him for drainage tomorrow. Patient's blood culture grew gram-negative rods Serratia marcescens. Currently patient on IV ceftriaxone. We will continue to follow him closely.
[2016-06-26 08:23] VITALS: BP 110/68
--- NOTE | 2016-06-26 08:25 | PN- Wound Care ---
Subjective Subjective: Patient remains intermittently confused Objective Vital Signs and I&Os Vital Signs Result Date Time Pulse Ox 97 06/25 153 B/P 108/68 06/25 153 O2 Delivery Room Air 06/25 1529 Temp 98.2 06/25 1529 Pulse 79 06/25 153 Resp 16 06/25 153 Intake & Output 06/26 0000 06/25 1600 06/25 0800 Intake Total 400 600 50 Output Total 350 650 200 Balance 50 -50 -150 Intake, Oral 400 600 50 Number 3 Bowel Movements Output, Urine 350 650 200 Multiple ulcers remain either unchanged or improved still areas of slough present though edema is markedly improved erythematous somewhat improved. Impression/Plan Impression/Plan Impression/Plan: 89-year-old gentleman with multiple medical problems admitted with increasing lower extremity edema and weeping bilateral leg ulcers present on admission. These are likely multifactorial due to underlying bullous pemphigoid complicated by venous insufficiency and edema and probable peripheral vascular disease. Recommend leg elevation wound cleansing and nonadherent dressing. Recommend dermatologic follow-up as well as vascular surgery evaluation of abnormal arterial ultrasound. Suggest infectious disease evaluation for source of gram- negative violetta bacteremia in view of history of abdominal ascites and abdominal Pleurx catheter placement in April. Continue current wound care with dermatologic follow-up as outpatient
--- NOTE | 2016-06-26 09:15 | ECHOCARDIOGRAM REPORT ---
EVE SANTILLAN Age: 89 : 1925 Gender: M Exam Date: 06/22/2016 08:50 Exam Location: 1 [address] Ht (in): 60 Wt (lb): 168 BSA: 1.83 BP: 112 / 56 Ordering Physician: LAVONNE CONNOLLY MD Referring Physician: LAVONNE CONNOLLY MD Technologist: Gregory Hazel [facility] Room Number: [id number] Indications: Heart failure, unspecified Rhythm: Technical Quality: Fair FINDINGS Left Ventricle Left ventricular cavity size normal. Left ventricular wall thickness moderately increased. No obvious regional wall motion abnormalities. Left ventricular ejection fraction is estimated at 55 %. Right Ventricle Right ventricle not well visualized, grossly normal. Right Atrium Mild right atrial dilatation. Left Atrium Mild left atrial dilatation. Mitral Valve Mild mitral annular calcification. Mild mitral regurgitation. Aortic Valve Trileaflet aortic valve. No aortic stenosis. Tricuspid Valve Tricuspid valve not well visualized, grossly normal. Moderate tricuspid regurgitation. Unable to estimate the right ventricular systolic pressure. Pulmonic Valve Pulmonic valve not well visualized, grossly normal. Pericardium No pericardial effusion. Great Vessels Normal size aortic root and proximal ascending aorta. CONCLUSIONS Left ventricular cavity size normal. Left ventricular wall thickness moderately increased. No obvious regional wall motion abnormalities. Left ventricular ejection fraction is estimated at 55 %. Right ventricle not well visualized, grossly normal. Mild right atrial dilatation. Mild left atrial dilatation. Moderate tricuspid regurgitation. Unable to estimate the right ventricular systolic pressure. No pericardial effusion. Dk Pollock M.D. (Electronically Signed) Final Date: 22 Jun 2016 16:47 Amended: 25 Jun 2016 10:30 MEASUREMENTS (Male / Female) Normal Values 2D ECHO LV Diastolic Diameter PLAX 4.9 cm 4.2 - 5.9 / 3.9 - 5.3 cm LV Systolic Diameter PLAX 3.3 cm 2.1 - 4.0 cm LV Fractional Shortening PLAX 32.7 % 25 - 46 % LV Ejection Fraction 2D Teich 60.9 % IVS Diastolic Thickness 1.4 cm LVPW Diastolic Thickness 1.4 cm LV Relative Wall Thickness 0.6 RV Internal Dim ED PLAX 4.5 cm 1.9 - 3.8 cm LVOT Diameter 2.0 cm Aortic Root Diameter 3.8 cm LA Systolic Diameter LX 4.5 cm 3.0 - 4.0 / 2.7 - 3.8 cm LA Volume 84.0 cm 18 - 58 / 22 - 52 cm Ascending Aorta Diameter 3.6 cm DOPPLER AV Peak Velocity 132.0 cm/s AV Peak Gradient 7.0 mmHg AV Mean Velocity 88.4 cm/s AV Mean Gradient 4.0 mmHg AV Velocity Time Integral 27.0 cm LVOT Peak Velocity 57.1 cm/s LVOT Peak Gradient 1.3 mmHg LVOT Mean Velocity 39.8 cm/s LVOT Mean Gradient 1.0 mmHg LVOT Velocity Time Integral 14.0 cm LVOT Stroke Volume 44.0 cm AV Area Cont Eq vti 1.6 cm AV Area Cont Eq pk 1.4 cm MV Peak Velocity 74.4 cm/s MV Peak Gradient 2.2 mmHg MV Mean Velocity 43.1 cm/s MV Mean Gradient 1.0 mmHg Mitral E Point Velocity 49.9 cm/s Mitral A Point Velocity 36.5 cm/s Mitral E to A Ratio 1.4 MV PHT Velocity 76.0 cm/s MV Deceleration [place] 198.0 cm/s MV Pressure Half Time 115.2 ms MV Area PHT 1.9 cm MV Deceleration Time 278.0 ms MR Peak Velocity 379.0 cm/s MR Peak Gradient 57.5 mmHg TR Peak Velocity 243.0 cm/s TR Peak Gradient 23.6 mmHg Right Atrial Pressure 10.0 mmHg Pulmonary Artery Systolic Pressu 33.6 mmHg Right Ventricular Systolic Press 33.6 mmHg PV Peak Velocity 81.3 cm/s PV Peak Gradient 2.6 mmHg PV Mean Velocity 57.7 cm/s PV Mean Gradient 2.0 mmHg PV Velocity Time Integral 15.7 cm
--- NOTE | 2016-06-26 09:16 | PN- Housestaff ---
FARHAD COLES 06/26/16 0916: Subjective Follow-up For: Nonsustained VT Bilateral lower extremity pain and cellulitis gram-negative bacteremia Mild acute on chronic renal insufficiency Subjective: This morning patient is very agitated and does not want to be examined or answer any questions. Review of Systems Constitutional: Reports: see HPI. Objective Last 24 Hrs of Vital Signs/I&O Vital Signs Date Time Temp Pulse Resp B/P B/P Pulse O2 O2 Flow FiO2 Mean Ox Delivery Rate 06/26 822 96.1 72 18 110/68 96 Room Air 06/25 1530 98.2 79 16 108/68 97 Room Air Intake & Output 06/26 1600 06/26 0800 05 0000 Intake Total 240 400 Output Total 350 350 Balance -110 50 Intake, Oral 240 400 Output, Urine 350 350 Physical Exam General Appearance: Alert, agitated Other Physical Findings: could not examin him as he was very agitated Current Medications: Current Medications Sig/Bennie Start time Last Medication Dose Route Stop Time Status Admin Acetaminophen 650 MG Q6P PRN 06/21 2245 AC PO Bisacodyl 10 MG DAILY PRN 06/23 1200 AC ME Ceftriaxone Sodium 1,000 MG DAILY 06/25 1000 DC IV Ciprofloxacin 500 MG Q24 06/26 1000 AC 06/26 PO 06/30 0959 0932 Heparin Sodium 5,000 UNIT Q8 06/22 2200 AC 06/26 (Porcine) SC 0704 Levothyroxine Sodium 0.1 MG DAILY AC 06/22 0700 AC 06/25 PO 0605 Oxycodone/ 1 TAB Q6P PRN 06/22 1345 DC 06/25 Acetaminophen PO 2126 Patient Medication 1 ED .STK-MED ONE 06/26 1401 GA Teaching ED 06/26 1402 Polyethylene Glycol 17 GM DAILY 06/23 1437 AC 06/24 PO 1018 Senna/Docusate Sodium 1 TAB BID 06/23 1437 AC 06/25 PO 2128 Last 24 Hrs of Lab/Jerel Results Last 24 Hrs of Labs/Mics: Laboratory Tests 06/26/16 0616: Anion Gap 8, Estimated GFR 23 L, BUN/Creatinine Ratio 23.1 Assessment/Plan Assessment: He is 89-year-old man with past medical history of hypertension, hyperlipidemia, diastolic heart failure, History of Nonsustained wide complex tachycardia with periods of bradycardia on metoprolol, Bullous pemphigoid, 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 Gram-negative bacteremia most likely secondary to lower extremity cellulitis. ruled out SBP. On ciprofloxacin 2. Acute on Chronic renal insufficiency (baseline around 2.2). Creatinine today 2.6. No consideration for dialysis 3. Chronically elevated troponins 4. Moderate peripheral arterial disease 5. Nonsustained VT. no plan for beta blockers because of history of bradycardia on metoprolol 6. Hyperkalemia. Resolved 7. History of recurrent ascites status post abdominal catheter. Used to get 500 ml ascitic fluid drainage 3 times weekly by visiting nurse at home. PLAN * Monitor vitals * Cardio consult appreciated * ID consult consult appreciated * Continue PO ciprofloxacin * We will continue 500 ml Ascitic fluid drainage by abdominal catheter 3 times weekly * Wound care consult appreciated * Avoid nephrotoxins * Monitor kidney functions and electrolytes daily * DVT prophylaxis subcutaneous heparin * Pain pathway * Heart healthy diet * Full code Problem List: 1. Cellulitis Pain Ratin Pain Location: left leg Pain Goal: Remain pain free Pain Plan: tylenol Tomorrow's Labs & Rationales: bep DVT/Prophylaxis: pharmacological RENETTA WALKER,[facility] 06/26/16 1558: Attending MD Review Statement Attending Statement Attending MD Statement: examined this patient, discuss w/resident/PA/RESILIENT TILE INSTALLER, agreed w/resident/PA/RESILIENT TILE INSTALLER, reviewed EMR data (avail), discussed with nursing, discussed with case mgmt, reviewed images, amended to note Attending Assessment/Plan: patient seen and examined, denies any complaints. In the morning he was agitated therefore a sitter was placed. From cardiology standpoint, cardiology does not recommend adding any beta blockers as he does have a history of significant bradycardia in the past. Patient is currently getting treated for gram-negative bacteremia and has been followed by infectious disease who recommended to switch the patient to oral Cipro for a total of 14 day course. Patient needs to go to rehabilitation. We can switch his sitter to a heart monitor and likely tomorrow he can be discharged if there is a bed available.
--- NOTE | 2016-06-26 09:51 | PN- Cardiology ---
Subjective Subjective: Patient without specific complaints. He specifically denies chest pain or shortness of breath. Review of Systems: Eyes no blurred or double vision Ears no deafness or ringing Nose and throat no recurrent sinusitis Lungs per history of present illness Heart per history of present illness Abdomen no nausea vomiting Musculoskeletal occasional muscle and joint pains Psych no anxiety or depression Neuro without recurrent headache or seizures Endocrine no heat or cold intolerance Objective Vital Signs and I&Os Vital Signs Date Time Temp Pulse Resp B/P B/P Pulse O2 O2 Flow FiO2 Mean Ox Delivery Rate 06/26 822 96.1 72 18 110/68 96 Room Air 06/25 1530 98.2 79 16 108/68 97 Room Air 06/25 1023 Room Air Intake & Output 06/26 1600 06/26 0806/26 0000 06/25 1600 06/25 0000 Intake Total 240 400 600 50 Output Total 350 350 650 200 500 Balance -110 50 -50 -150 -500 Intake, Oral 240 400 600 50 Number 3 2 Bowel Movements Output, Urine 350 350 650 200 500 Physical Exam: Patient is a well-developed well-nourished male appearing in no acute distress HEENT is unremarkable Neck is supple there is no JVD Lungs are clear Heart regular rhythm S1 and S2 are normal no gallops or rubs 1/6 ALVINO LSB Abdomen bowel sounds positive Extremities both legs wrapped Current Medications: Current Medications Sig/Bennie Start time Last Medication Dose Route Stop Time Status Admin Acetaminophen 650 MG Q6P PRN 06/21 2245 AC PO Bisacodyl 10 MG DAILY PRN 06/23 1200 AC MI Ceftriaxone Sodium 1,000 MG DAILY 06/25 1000 DC IV Ciprofloxacin 500 MG Q24 06/26 1000 AC 06/26 PO 06/30 0959 0932 Heparin Sodium 5,000 UNIT Q8 06/22 2200 AC 06/26 (Porcine) SC 0704 Levothyroxine Sodium 0.1 MG DAILY AC 06/22 0700 AC 06/25 PO 0605 Oxycodone/ 1 TAB Q6P PRN 06/22 1345 AC 06/25 Acetaminophen PO 2126 Polyethylene Glycol 17 GM DAILY 06/23 1437 AC 06/24 PO 1018 Senna/Docusate Sodium 1 TAB BID 06/23 1437 AC 06/25 PO 2128 Results Last 48 Hrs of Labs/Mics: Laboratory Tests 06/26/16 0616: Anion Gap 8, Estimated GFR 23 L, BUN/Creatinine Ratio 23.1 06/25/16 0618: Anion Gap 10, Estimated GFR 22 L, BUN/Creatinine Ratio 23.0, Magnesium 2.5 H, CBC w Diff MAN DIFF ORDERED, RBC 3.40 L, MCV 81.3, MCH 26.1 L, RDW 20.8 H, MPV 6.6 L, Gran % 87.6 H, Lymphocytes % 5.0 L, Monocytes % 4.9, Eosinophils % 2.3, Basophils % 0.2, Absolute Granulocytes 7.1 H, Absolute Lymphocytes 0.4 L, Absolute Monocytes 0.4, Absolute Eosinophils 0.2, Absolute Basophils 0, Platelet Estimate ADEQUATE, Polychromasia 1+, Poikilocytosis 1+, Anisocytosis 2+, Microcytic Cells 1+, Ovalocytes FEW, Elliptocytes 1+, PUBS MCHC 32.1 L 06/24/16 1800: Anion Gap 13, Estimated GFR 22 L, BUN/Creatinine Ratio 23.3 Telemetry personally reviewed. Brief episodes of nonsustained ventricular tachycardia. Recent Imaging Studies: Echocardiogram CONCLUSIONS Left ventricular cavity size normal. Left ventricular wall thickness moderately increased. No obvious regional wall motion abnormalities. Left ventricular ejection fraction is estimated at 55 %. Right ventricle not well visualized, grossly normal. Mild right atrial dilatation. Mild left atrial dilatation. Moderate tricuspid regurgitation. Unable to estimate the right ventricular systolic pressure. No pericardial effusion. Dk Pollock M.D. Assessment/Plan Assessment/Plan 1. Bullous pemphigoid with cellulitis and bacteremia 2. 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 Acute on Chronic renal insufficiency 4. Chronically elevated troponin 5. Chronic anemia 6. Nonsustained wide complex tachycardia with periods of bradycardia on metoprolol EF 55% 7. Frequent PACs Recommendations 1. Continue to monitor on telemetry. We'll not initiate beta briana therapy for his brief nonsustained ventricular tachycardia since he developed significant bradycardia in the past. 2. Continue IV antibiotics 3. Continue to monitor serium potassium and renal function Continue telemetry? Yes
--- NOTE | 2016-06-26 13:27 | PN- Infect Dx ---
Subjective Subjective: Afebrile without complaints Objective Last 24 Hrs of Vital Signs/I&O Vital Signs Date Time Temp Pulse Resp B/P B/P Pulse O2 O2 Flow FiO2 Mean Ox Delivery Rate 06/26 822 96.1 72 18 110/68 96 Room Air 06/25 1530 98.2 79 16 108/68 97 Room Air Intake & Output 06/26 1600 06/26 0800 05 0000 Intake Total 240 400 Output Total 350 350 Balance -110 50 Intake, Oral 240 400 Output, Urine 350 350 Physical Exam Other Physical Findings: He appears comfortable in no acute distress Lungs are clear Heart regular rhythm with no murmur Abdomen is distended, nontender with positive bowel sounds Extremities dressings intact both lower extremities Results Last 24 Hours of Lab Results: Laboratory Tests 06/27 615 Chemistry Sodium (137 - 145 mmol/L) 138 Potassium (3.5 - 5.1 mmol/L) 5.1 Chloride (98 - 107 mmol/L) 111 H Carbon Dioxide (22 - 30 mmol/L) 20 L Anion Gap (5 - 16) 8 BUN (9 - 20 mg/dL) 60 H Creatinine (0.7 - 1.2 mg/dL) 2.6 H Estimated GFR (>60 ml/min) 23 L BUN/Creatinine Ratio (7 - 25 %) 23.1 Last 24 Hours of Jerel Results: Urine culture June 23 negative Ascitic fluid culture June 22 negative Assessment/Plan Impression: Doing well with temperatures and white blood cell count remaining normal now on Ciprofloxacin Day 3 of treatment for Serratia bacteremia, most likely secondary to cellulitis of the left lower extremity, which has improved. The ascitic fluid cell count was not suggestive of SBP, and he has no other apparent focus of infection. Suggestion: 1. Continue Ciprofloxacin to complete a 14 day course of treatment (until July 07)
--- NOTE | 2016-06-26 15:59 | Patient Discharge Instructions ---
Discharge Instructions General Discharge Information You were seen/treated for: Nonsustained VT Bilateral lower extremity pain and cellulitis gram-negative bacteremia Mild acute on chronic renal insufficiency Special Instructions: 1. Please follow-up with your regular doctor after discharge 2. Please follow-up with your mri specialist after discharge 3. Please follow-up with your kidney doctor after discharge 4. Please follow up with your regional controller within one week from discharge. Diet Continue normal diet: Yes Activity Activity Limited to: Walking with Assistance Acute Coronary Syndrome Inclusion Criteria At DC or during hospital stay patient has or had the following: ACS DIAGNOSIS No Discharge Core Measures Meds if any: Prescribed or Continued at Discharge Meds if any: NOT Prescribed or Continued at Discharge Congestive Heart Failure Inclusion Criteria At DC or during hospital stay patient has or had the following: CHF DIAGNOSIS No Discharge Core Measures Meds if any: Prescribed or Continued at Discharge Meds if any: NOT Prescribed or Continued at Discharge Cerebrovascular accident Inclusion Criteria At DC or during hospital stay patient has or had the following: CVA/TIA Diagnosis No Discharge Core Measures Meds if any: Prescribed or Continued at Discharge Meds if any: NOT Prescribed or Continued at Discharge Venous thromboembolism Inclusion Criteria VTE Diagnosis No VTE Type NONE VTE Confirmed by (Test) NONE Discharge Core Measures - Per Current guidelines, there needs to be overlap - treatment for the first 5 days of Warfarin therapy. - If discharged on Warfarin prior to 5 days of - overlap therapy, the patient will need to be - assessed for post discharge needs including - *Post discharge parental anticoagulation - *Warfarin and/or parental anticoagulation education - *Follow up date to check INR post discharge At least 5 days overlap therapy as Inpatient No Meds if any: Prescribed or Continued at Discharge Note: Overlap Therapy is Warfarin and Anticoagulant Meds if any: NOT Prescribed or Continued at Discharge
[2016-06-26 17:11] VITALS: BP 102/70
[2016-06-27 00:55] VITALS: BP 112/64
--- NOTE | 2016-06-27 07:24 | PN- Housestaff ---
CATHLEEN WALKER,[facility] 06/27/16 0724: Subjective Follow-up For: Nonsustained VT Bilateral lower extremity pain and cellulitis gram-negative bacteremia Mild acute on chronic renal insufficiency Subjective: Patient is lying comfortably in bed with no complaints except for feeling 'sore' all over. Overnight, he had complained of pain allover the body and was started on Percocet (one dose has been administered). Review of Systems Constitutional: Reports: see HPI. Objective Last 24 Hrs of Vital Signs/I&O Vital Signs Date Time Temp Pulse Resp B/P B/P Pulse O2 O2 Flow FiO2 Mean Ox Delivery Rate 06/27 0807 97.7 80 18 120/72 97 Room Air 06/27 0055 98.0 80 16 112/64 98 Room Air 06/26 1711 98.1 71 16 102/70 99 Room Air 06/26 1541 Room Air Intake & Output 06/27 1600 06/27 0800 06/27 0000 Intake Total 50 240 Output Total 200 850 Balance -150 -610 Intake, Oral 50 240 Output, 500 Drainage Output, Urine 200 350 Physical Exam General Appearance: Alert, Oriented X3, Cooperative, No Acute Distress Cardiovascular: Regular Rate, Normal S1, Normal S2 Lungs: Clear to Auscultation, Normal Air Movement Abdomen: Normal Bowel Sounds, Soft, No Tenderness, port present in the RUQ Neurological: Normal Speech, Strength at 5/5 X4 Ext, Normal Tone, Sensation Intact Extremities: Improvement noted in the area of erythema and edema since admission. Intact bandages and dressing present. Current Medications: Current Medications Sig/Bennie Start time Last Medication Dose Route Stop Time Status Admin Acetaminophen 650 MG Q6P PRN 06/21 2245 AC 06/27 PO 0219 Bisacodyl 10 MG DAILY PRN 06/23 1200 AC KS Ciprofloxacin 500 MG Q24 06/26 1000 AC / PO 06/30 0959 0826 Heparin Sodium 5,000 UNIT Q8 06/22 2200 AC 06/27 (Porcine) SC 0600 Levothyroxine Sodium 0.1 MG DAILY AC 06/22 0700 AC 06/27 PO 0601 Multi-Ingred Cream/ 1 AYAAN TID 06/27 1000 AC Lotion/Oil/Oint EXT Oxycodone/ 1 TAB Q4P PRN 06/27 0300 DC 06/27 Acetaminophen PO 0310 Patient Medication 1 ED .STK-MED ONE 06/26 1401 [facility] ED 06/26 1402 Polyethylene Glycol 17 GM DAILY 06/23 143 AC 06/27 PO 0826 Senna/Docusate Sodium 1 TAB BID 06/23 143 AC 06/27 PO 0826 Last 24 Hrs of Lab/Jerel Results Last 24 Hrs of Labs/Mics: Laboratory Tests 06/27/16 0619: Anion Gap 11, Estimated GFR 24 L, BUN/Creatinine Ratio 22.4, CBC w Diff NO MAN DIFF REQ, RBC 3.27 L, MCV 80.4, MCH 25.7 L, RDW 20.9 H, MPV 6.2 L, Gran % 83.7 H, Lymphocytes % 7.1 L, Monocytes % 6.5, Eosinophils % 2.3, Basophils % 0.4, Absolute Granulocytes 6.0, Absolute Lymphocytes 0.5 L, Absolute Monocytes 0.5, Absolute Eosinophils 0.2, Absolute Basophils 0, PUBS MCHC 31.9 L Lines/Diet/Fluids Lines: peripheral lines Assessment/Plan Assessment: He is 89-year-old man with past medical history of hypertension, hyperlipidemia, diastolic heart failure, History of Nonsustained wide complex tachycardia with periods of bradycardia on metoprolol, Bullous pemphigoid, 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 Gram-negative bacteremia most likely secondary to lower extremity cellulitis. ruled out SBP. On ciprofloxacin to be continued till 07/07. 2. Acute on Chronic renal insufficiency (baseline around 2.2). Creatinine today 2.6. No consideration for dialysis 3. Chronically elevated troponins 4. Moderate peripheral arterial disease 5. Nonsustained VT. no plan for beta blockers because of history of bradycardia on metoprolol 6. Hyperkalemia. Resolved 7. History of recurrent ascites status post abdominal catheter. Used to get 500 ml ascitic fluid drainage 3 times weekly by visiting nurse at home. PLAN * Monitor vitals * Cardio consult appreciated. Per Cardio, patient can be taken off tele today. He did have an episode of what was thought to be AFib, but was SR. * ID consult consult appreciated. * Continue PO ciprofloxacin * We will continue 500 ml Ascitic fluid drainage by abdominal catheter 3 times weekly * Wound care consult appreciated * Avoid nephrotoxins * Monitor kidney functions and electrolytes daily * DVT prophylaxis subcutaneous heparin * Pain pathway * Heart healthy diet * Full code Plan for discharge in AM, when medical unit secretary has been off for 24 hours. Problem List: 1. HTN (hypertension) 2. Elevated serum creatinine 3. Cellulitis Pain Ratin Pain Location: None Pain Goal: Pain 4 or less Pain Plan: Per EMR Tomorrow's Labs & Rationales: None needed. DVT/Prophylaxis: pharmacological MOE JACKSON MD 06/27/16 1320: Attending MD Review Statement Attending Statement Attending MD Statement: examined this patient, discuss w/resident/PA/DUSTING AND BRUSHING MACHINE OPERATOR, agreed w/resident/PA/DUSTING AND BRUSHING MACHINE OPERATOR, discussed with family, reviewed EMR data (avail), discussed with nursing, discussed with case mgmt, amended to note Attending Assessment/Plan: Patient seen and examined, offers no complaints. Sitter has been switched to call monitor. Patient is not agitated anymore. Hemodynamically stable. Currently he is on Cipro for bacteremia as well as cellulitis. His lower extremities are looking much better. From telemetry standpoint patient is doing well and his telemetry can be discontinued. Patient is medically stable for discharge but unfortunately secondary to having a heart monitor he cannot leave today. We will discontinue all monitor today and hopefully he will be able to go to rehabilitation tomorrow. Continue all present management.
[2016-06-27 07:57] LABS: ABSOLUTE BASOPHIL COUNT 0 /CUMM (0.0-0.2); ABSOLUTE EOSINOPHIL COUNT 0.2 /CUMM (0.0-0.7); ABSOLUTE LYMPH COUNT 0.5 /CUMM (1.2-3.4); ABSOLUTE MONOCYTE COUNT 0.5 /CUMM (0.10-0.60); BASOPHIL % 0.4 % (0.0-2.0); EOSINOPHIL % 2.3 % (0-5); GRANULOCYTE % 83.7 % (42.2-75.2); HEMATOCRIT 26.3 % (42-52); MEAN CORPUSCULAR HGB 25.7 PG (27.0-31.0); MEAN CORPUSCULAR HGB CONC 31.9 G/DL (33.0-37.0); MEAN CORPUSCULAR VOLUME 80.4 FL (80.0-94.0); MEAN PLATELET VOLUME 6.2 FL (7.4-10.4); PLATELET COUNT 236 /CUMM (130-400); RBC DISTRIBUTION WIDTH 20.9 % (11.5-14.5); RED BLOOD CELL CT 3.27 /CUMM (4.70-6.10); WHITE BLOOD CELL COUNT 7.2 /CUMM (4.8-10.8)
[2016-06-27 08:07] VITALS: BP 120/72
[2016-06-27] MEDS ORDERED: MIRALAX119 GM PO (09:54)
--- NOTE | 2016-06-27 11:54 | PN- Cardiology ---
Subjective Subjective: The patient reports no chest pain, dyspnea, or palpitations. He still has lower extremity discomfort. Objective Vital Signs and I&Os Vital Signs Date Time Temp Pulse Resp B/P B/P Pulse O2 O2 Flow FiO2 Mean Ox Delivery Rate 06/27 0807 97.7 80 18 120/72 97 Room Air 06/27 0055 98.0 80 16 112/64 98 Room Air 06/26 1711 98.1 71 16 102/70 99 Room Air 06/26 1541 Room Air Intake & Output 06/27 1600 06/27 0806/27 0000 06/26 1600 06/26 0000 Intake Total 50 240 600 240 400 Output Total 200 850 450 350 350 Balance -150 -610 150 -110 50 Intake, Oral 50 240 600 240 400 Output, 500 Drainage Output, Urine 200 350 450 350 350 Physical Exam: General: no apparent distress. Alert. Eyes: No obvious scleral icterus. HEENT: no JVD Cardiovascular: Normal intensity S1/S2. One out of 6 systolic murmur Respiratory: Mildly decreased air entry without rales Abdomen: distended without guarding, abdominal catheter in place (right) Musculoskeletal: trace bilateral lower extremity edema Skin: Warm, stasis changes noted, ulcerations noted with dressings in place Neurologic: No gross focal deficits noted. Current Medications: Current Medications Sig/Bennie Start time Last Medication Dose Route Stop Time Status Admin Acetaminophen 650 MG Q6P PRN 06/21 2245 AC 06/27 PO 0219 Bisacodyl 10 MG DAILY PRN 06/23 1200 AC SC Ciprofloxacin 500 MG Q24 06/26 1000 AC 06/27 PO 06/30 0959 0826 Heparin Sodium 5,000 UNIT Q8 06/22 2200 AC 06/27 (Porcine) SC 0600 Levothyroxine Sodium 0.1 MG DAILY AC 06/22 0700 AC 06/27 PO 0601 Multi-Ingred Cream/ 1 AYAAN TID 06/27 1000 AC Lotion/Oil/Oint EXT Oxycodone/ 1 TAB Q4P PRN 06/27 0300 DC 05 Acetaminophen PO 0310 Patient Medication 1 ED .STK-MED ONE 06/26 1401 DC Teaching ED 06/26 1402 Polyethylene Glycol 17 GM DAILY 06/23 1437 AC 06/27 PO 0826 Senna/Docusate Sodium 1 TAB BID 06/23 1437 AC 06/27 PO 0826 Results Last 48 Hrs of Labs/Mics: Laboratory Tests 06/27/16 0619: Anion Gap 11, Estimated GFR 24 L, BUN/Creatinine Ratio 22.4, CBC w Diff NO MAN DIFF REQ, RBC 3.27 L, MCV 80.4, MCH 25.7 L, RDW 20.9 H, MPV 6.2 L, Gran % 83.7 H, Lymphocytes % 7.1 L, Monocytes % 6.5, Eosinophils % 2.3, Basophils % 0.4, Absolute Granulocytes 6.0, Absolute Lymphocytes 0.5 L, Absolute Monocytes 0.5, Absolute Eosinophils 0.2, Absolute Basophils 0, PUBS MCHC 31.9 L 06/26/16 0616: Anion Gap 8, Estimated GFR 23 L, BUN/Creatinine Ratio 23.1 Recent Imaging Studies: Telemetry tracings were personally reviewed and shows sinus rhythm with PVCs and 4 beat wide complex run Assessment/Plan Assessment/Plan 1. Bullous pemphigoid with cellulitis and bacteremia 2. 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 Acute on Chronic renal insufficiency with mild hyperkalemia 4. Chronically elevated troponin 5. Chronic anemia 6. Known hx of Nonsustained wide complex tachycardia with periods of bradycardia on metoprolol 7. Frequent PACs The patient is now on oral antibiotics. Remains hemodynamically stable. Telemetry review shows no evidence of atrial fibrillation; 4 beat wide complex run noted with no sustained ventricular arrhythmias. Continue regular ascites drainage via the abdominal port. Encourage ambulation as tolerated. Maintain low potassium diet. Star Pollock MD [facility] Continue telemetry? No
[2016-06-27 16:32] VITALS: BP 118/68
[2016-06-27 23:51] VITALS: BP 124/72
--- NOTE | 2016-06-28 07:20 | PN- Housestaff ---
CATHLEEN WALKER,[facility]ONNE 06/28/16 0720: Subjective Follow-up For: Nonsustained VT Bilateral lower extremity pain and cellulitis gram-negative bacteremia Mild acute on chronic renal insufficiency Subjective: Patient is sitting up in bed having breakfast. No complaints of agitation overnight. Review of Systems Constitutional: Reports: see HPI. Objective Last 24 Hrs of Vital Signs/I&O Vital Signs Date Time Temp Pulse Resp B/P B/P Pulse O2 O2 Flow FiO2 Mean Ox Delivery Rate 06/28 0000 Room Air 06/27 2351 97.9 85 18 124/72 97 Room Air 06/27 1632 97.6 61 16 118/68 96 Room Air 06/27 1356 Room Air 06/27 0807 97.7 80 18 120/72 97 Room Air Intake & Output 06/28 0800 06/28 0000 06/27 1600 Intake Total 120 240 800 Output Total 300 Balance 120 240 500 Intake, Oral 120 240 800 Number 2 Bowel Movements Output, Urine 300 Physical Exam General Appearance: Alert, Oriented X3, Cooperative, No Acute Distress Cardiovascular: Regular Rate, Normal S1, Normal S2 Lungs: Clear to Auscultation, Normal Air Movement Abdomen: Normal Bowel Sounds, Soft, No Tenderness, port present in the RUQ with no erythema tenderness surrounding it. Neurological: Normal Speech, Strength at 5/5 X4 Ext, Normal Tone, Sensation Intact Extremities: Both lower extremities in bandages, significant decrease in erythema and edema noted. Hands also show signs of denuded skin with no significant erythema. Current Medications: Current Medications Sig/Bennie Start time Last Medication Dose Route Stop Time Status Admin Acetaminophen 650 MG .STK-MED ONE 06/27 1956 DC PO 06/27 1957 Acetaminophen 650 MG Q6P PRN 06/21 2245 AC 06/27 PO 2023 Bisacodyl 10 MG DAILY PRN 06/23 1200 AC TN Ciprofloxacin 500 MG Q24 06/26 1000 AC 06/27 PO 06/30 0959 0826 Heparin Sodium 5,000 UNIT Q8 06/22 2200 AC 06/28 (Porcine) SC 0520 Levothyroxine Sodium 0.1 MG DAILY AC 06/22 0700 AC 06/27 PO 0601 Multi-Ingred Cream/ 1 AYAAN TID 06/27 1000 AC 06/27 Lotion/Oil/Oint EXT 2023 Oxycodone/ 1 TAB Q4P PRN 05/10 0300 DC 06/27 Acetaminophen PO 0310 Polyethylene Glycol 17 GM DAILY 06/23 1437 AC 06/27 PO 0826 Senna/Docusate Sodium 1 TAB BID 06/23 1437 AC 06/27 PO 0826 Lines/Diet/Fluids Lines: peripheral lines Assessment/Plan Assessment: He is 89-year-old man with past medical history of hypertension, hyperlipidemia, diastolic heart failure, History of Nonsustained wide complex tachycardia with periods of bradycardia on metoprolol, Bullous pemphigoid, 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 Gram-negative bacteremia most likely secondary to lower extremity cellulitis. ruled out SBP. On ciprofloxacin to be continued till 07/07. 2. Acute on Chronic renal insufficiency (baseline around 2.2). Creatinine today 2.6. No consideration for dialysis 3. Chronically elevated troponins 4. Moderate peripheral arterial disease 5. Nonsustained VT. no plan for beta blockers because of history of bradycardia on metoprolol 6. Hyperkalemia. Resolved 7. History of recurrent ascites status post abdominal catheter. Used to get 500 ml ascitic fluid drainage 3 times weekly by visiting nurse at home. PLAN * Monitor vitals * Cardio consult appreciated. Patient currently off tele. * ID consult consult appreciated. * Continue PO ciprofloxacin till 07/07. * We will continue 500 ml Ascitic fluid drainage by abdominal catheter 3 times weekly * Wound care consult appreciated * Avoid nephrotoxins * Monitor kidney functions and electrolytes daily * DVT prophylaxis subcutaneous heparin * Pain pathway * Heart healthy diet * Full code Plan for discharge today as the case monitor has been off for 24 hours. Problem List: 1. Cellulitis Pain Ratin Pain Location: None Pain Goal: Pain 4 or less Pain Plan: Per EMR Tomorrow's Labs & Rationales: Not needed as the patient is to be discharged today. DVT/Prophylaxis: pharmacological RENETTA WALKER,MOE 06/28/16 1341: Attending MD Review Statement Attending Statement Attending Statement: examined this patient, discuss w/resident/PA/WAX CUTTER, agreed w/resident/PA/WAX CUTTER, reviewed EMR data (avail), discussed with nursing, discussed with case mgmt, amended to note Attending Assessment/Plan: Patient seen and examined, was slightly upset this morning as his legs were hurting. He is otherwise hemodynamically stable. No telemetry events. He has been treated with oral Cipro. Medically stable for discharge to rehabilitation today.
[2016-06-28 08:17] VITALS: BP 126/70
--- NOTE | 2016-06-28 08:56 | PN- Cardiology ---
Subjective Subjective: Patient sitting out of bed in a chair. No cardiac issues overnight. Objective Vital Signs and I&Os Vital Signs Date Time Temp Pulse Resp B/P B/P Pulse O2 O2 Flow FiO2 Mean Ox Delivery Rate 06/28 816 97.5 64 18 126/70 97 Room Air 06/28 0000 Room Air 06/27 2351 97.9 85 18 124/72 97 Room Air 06/27 1632 97.6 61 16 118/68 96 Room Air 06/27 1356 Room Air Intake & Output 06/28 0806/28 0000 06/27 1600 06/27 0806/27 0000 Intake Total 120 240 800 50 240 Output Total 300 200 850 Balance 120 240 500 -150 -610 Intake, Oral 120 240 800 50 240 Number 2 Bowel Movements Output, 500 Drainage Output, Urine 300 200 350 Physical Exam: General on general exam patient comfortable Head normocephalic atraumatic Eyes sclera icteric conjunctiva showed mild pallor, extraocular muscles were normal Chest lungs were clear bilaterally Heart regular rhythm grade 2/6 systolic murmur Abdomen protuberant related to ascites Extremities 1-2+ edema neurological no gross motor or sensory deficits Current Medications: Current Medications Sig/Bennie Start time Last Medication Dose Route Stop Time Status Admin Acetaminophen 650 MG .STK-MED ONE 06/27 1956 DC PO 06/27 1957 Acetaminophen 650 MG Q6P PRN 06/21 224 AC 06/27 PO 202 Bisacodyl 10 MG DAILY PRN 06/23 1200 AC SD Ciprofloxacin 500 MG Q24 06/26 1000 AC 06/28 PO 06/30 0959 0818 Heparin Sodium 5,000 UNIT Q8 06/22 2200 AC 06/28 (Porcine) SC 0520 Levothyroxine Sodium 0.1 MG DAILY AC 06/22 0700 AC 06/28 PO 0816 Multi-Ingred Cream/ 1 AYAAN TID 06/27 1000 AC 06/28 Lotion/Oil/Oint EXT 0818 Oxycodone/ 1 TAB Q4P PRN 06/27 0300 DC 06/27 Acetaminophen PO 0310 Polyethylene Glycol 17 GM DAILY 06/23 1437 AC 06/28 PO 0818 Senna/Docusate Sodium 1 TAB BID 06/23 1437 AC 06/28 PO 0818 Results Last 48 Hrs of Labs/Mics: Laboratory Tests 06/27/16 0619: Anion Gap 11, Estimated GFR 24 L, BUN/Creatinine Ratio 22.4, CBC w Diff NO MAN DIFF REQ, RBC 3.27 L, MCV 80.4, MCH 25.7 L, RDW 20.9 H, MPV 6.2 L, Gran % 83.7 H, Lymphocytes % 7.1 L, Monocytes % 6.5, Eosinophils % 2.3, Basophils % 0.4, Absolute Granulocytes 6.0, Absolute Lymphocytes 0.5 L, Absolute Monocytes 0.5, Absolute Eosinophils 0.2, Absolute Basophils 0, PUBS MCHC 31.9 L Assessment/Plan Assessment/Plan Summary this 89-year-old gentleman has the following problems 1. Bullous pemphigoid with cellulitis and bacteremia 2. 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 Acute on Chronic renal insufficiency with mild hyperkalemia 4. Chronically elevated troponin 5. Chronic anemia 6. Known hx of Nonsustained wide complex tachycardia with periods of bradycardia on metoprolol 7. Frequent PACs He has been taken off telemetry and is scheduled to go to short-term rehabilitation today. Continue telemetry? No
--- NOTE | 2016-06-28 11:06 | PN- Infect Dx ---
Subjective Subjective: Afebrile without complaints Objective Last 24 Hrs of Vital Signs/I&O Vital Signs Date Time Temp Pulse Resp B/P B/P Pulse O2 O2 Flow FiO2 Mean Ox Delivery Rate 06/28 0817 97.5 64 18 126/70 97 Room Air 06/28 0000 Room Air 06/27 2351 97.9 85 18 124/72 97 Room Air 06/27 1632 97.6 61 16 118/68 96 Room Air 06/27 1356 Room Air Intake & Output 06/28 1600 06/28 0800 06/28 0000 Intake Total 120 240 Output Total Balance 120 240 Intake, Oral 120 240 Number 2 Bowel Movements Physical Exam Other Physical Findings: He appears comfortable in no acute distress Lungs bibasilar crackles Heart regular rhythm with no murmur Extremities decreased erythema of the left leg, mildly tender to palpation Results Last 24 Hours of Lab Results: Laboratory Tests 06/27 06 Chemistry Sodium (137 - 145 mmol/L) 140 Potassium (3.5 - 5.1 mmol/L) 5.1 Chloride (98 - 107 mmol/L) 113 H Carbon Dioxide (22 - 30 mmol/L) 17 L Anion Gap (5 - 16) 11 BUN (9 - 20 mg/dL) 56 H Creatinine (0.7 - 1.2 mg/dL) 2.5 H Estimated GFR (>60 ml/min) 24 L BUN/Creatinine Ratio (7 - 25 %) 22.4 Hematology CBC w Diff NO MAN DIFF REQ WBC (4.8 - 10.8 /CUMM) 7.2 RBC (4.70 - 6.10 /CUMM) 3.27 L Hgb (14.0 - 18.0 G/DL) 8.4 L Hct (42 - 52 %) 26.3 L MCV (80.0 - 94.0 FL) 80.4 MCH (27.0 - 31.0 PG) 25.7 L RDW (11.5 - 14.5 %) 20.9 H Plt Count (130 - 400 /CUMM) 236 MPV (7.4 - 10.4 FL) 6.2 L Gran % (42.2 - 75.2 %) 83.7 H Lymphocytes % (20.5 - 51.1 %) 7.1 L Monocytes % (1.7 - 9.3 %) 6.5 Eosinophils % (0 - 5 %) 2.3 Basophils % (0.0 - 2.0 %) 0.4 Absolute Granulocytes (1.4 - 6.5 /CUMM) 6.0 Absolute Lymphocytes (1.2 - 3.4 /CUMM) 0.5 L Absolute Monocytes (0.10 - 0.60 /CUMM) 0.5 Absolute Eosinophils (0.0 - 0.7 /CUMM) 0.2 Absolute Basophils (0.0 - 0.2 /CUMM) 0 PUBS MCHC (33.0 - 37.0 G/DL) 31.9 L Last 24 Hours of Jerel Results: No recent cultures Assessment/Plan Impression: Doing well with temperatures and white blood cell count remaining normal on Ciprofloxacin Day 5 of treatment for Serratia bacteremia, most likely secondary to cellulitis of the left lower extremity, which has improved. The ascitic fluid cell count was not suggestive of SBP, and he has no other apparent focus of infection. Suggestion: 1. Continue Ciprofloxacin to complete a 14 day course of treatment (until July 07)
[2016-06-28] MEDS ORDERED: CIPRO500 M1 PO (13:56)
[2016-06-28 14:06] VITALS: BP 126/70
== END 2016-06-28 15:25 | DRG 603 ==
LOC: ERH 15:48 → ERHI 18:41 → 1NO 18:41 → ENRESERV 19:40 → 1NO 21:03 → ENPENDDIS 06-28 13:29 → 1NO 06-28 15:25
PROVIDERS: Emergency Medicine; Internal Medicine; Student in an Organized Health Care Education/Training Program; ADMIT Internal Medicine
DX: L03.116 Cellulitis of left lower limb (principal); N17.9 Acute kidney failure, unspecified; I13.0 Hypertensive heart and chronic kidney disease with heart failure and stage 1 through stage 4 chronic kidney disease, or unspecified chronic kidney disease; I50.32 Chronic diastolic (congestive) heart failure; L97.819 Non-pressure chronic ulcer of other part of right lower leg with unspecified severity; L12.0 Bullous pemphigoid; L97.829 Non-pressure chronic ulcer of other part of left lower leg with unspecified severity; I48.91 Unspecified atrial fibrillation; I73.9 Peripheral vascular disease, unspecified; N18.3 Chronic kidney disease, stage 3 (moderate); I07.1 Rheumatic tricuspid insufficiency; B96.89 Other specified bacterial agents as the cause of diseases classified elsewhere; L03.115 Cellulitis of right lower limb; Z79.01 Long term (current) use of anticoagulants; E78.5 Hyperlipidemia, unspecified; H26.9 Unspecified cataract; K57.90 Diverticulosis of intestine, part unspecified, without perforation or abscess without bleeding
CPT/HCPCS: 1NP; 87075; 36415; 76775; 82436; 87040; 87086; 88305; 93005; 93010; 93306; 93970; 97110-GO; 97116-GO; 97161-GP; 97530-GO; 99291; J0696; J0713; J1644; J3250

== ENCOUNTER 2016-07-02 11:10 | Inpatient (IN) | payer MEDICARE, OTHER ==
[~2016-07-02] VITALS: Ht 162.6 cm; Wt 73.9 kg
[~2016-07-02 11:10] MED LIST changes: +CIPRO500 M1 PO; +MINOCYCLINE HC100 M1 PO; +SILVADENE20 GM TOP
--- NOTE | 2016-07-02 11:24 | ED GENERAL ADULT ---
History of Present Illness General Chief Complaint: Altered Mental Status Stated Complaint: BIBA, COMBATIVE, H/O DEMENTIA Source: EMS Exam Limitations: confusion, poor historian Vital Signs & Intake/Output Vital Signs & Intake/Output Vital Signs Date Time Temp Pulse Resp B/P B/P Pulse O2 O2 Flow FiO2 Mean Ox Delivery Rate 07/03 1122 96.3 74 20 126/63 96 Room Air 07/03 1000 Room Air 07/03 0620 132/101 07/03 0155 97.0 74 20 129/71 97 Room Air 07/02 1416 98.2 90 18 132/78 97 Room Air ED Intake and Output 07/03 0000 07/02 1200 Intake Total 300 Output Total 100 Balance 200 Intake, Oral 300 Output, Urine 100 Allergies Coded Allergies: No Known Allergies (05/29/16) Reconcile Medications Cholecalciferol (Vitamin D3) 1,000 UNIT TABLET 2,000 IU PO DAILY bones Ciprofloxacin HCl (Cipro) 500 MG TABLET 1 TAB PO Q24 CELLULITIS Clobetasol Propionate 0.05 % OINT...G. 1 AYAAN TOP BID WOUNDS (Reported) apply to affected area(s) Cyanocobalamin (Vitamin B-12) 1,000 MCG TABLET 1 TAB PO DAILY SUPPLEMENT ( Reported) Diclofenac Sodium (Voltaren) 1 % GEL..GRAM. 1 GM TOP 4 TIMES/DAY HAND PAIN/ RASH apply to affected area(s) Levothyroxine Sodium 100 MCG TABLET 1 TAB PO DAILY AC THYROID (Reported) Silver Sulfadiazine (Silvadene) 1 % CREAM..G. 1 AYAAN TOP DAILY WOUNDS ON LEGS (Reported) apply to affected area(s) Vit A/C/E AC/Znox/Cupric Oxide (Eye Vitamin-Minerals Tablet) 7,160-113 TABLET 1 TAB PO DAILY VITAMIN SUPPORT (Reported) Triage Nurses Notes Reviewed? yes Onset: Abrupt Duration: minute(s): Timing: remote history HPI: 07/02/16 89-year-old man was brought to the emergency department for combative behavior. He denies any complaints currently in the ED he has a history of dementia, cardiomyopathy, acute kidney injury, and liver failure. The patient was discharged 3 days ago and placed in an assisted care facility. He has been combative and striking out at healthcare providers. He is confused and agitated in the ED. He was given 5 mg of Haldol. (DULCE BORGES DO) Past History Travel History Traveled to [place] past 21 day No Medical History Any Pertinent Medical History? see below for history Neurological: vertigo EENT: cataracts, hearing loss (postop) Cardiovascular: diastolic CHF, hypertension, hyperlipidemia, TR with elevated RV pressure RBBB old antinf TX by EKG with ? 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 . FH: hepatic cirrhosis BROTHER, ; Cause: Alcoholic cirrhosis. FATHER (fxd neck). , Age 47; Cause: Fall. MOTHER, , Age 70; Cause: Fall. Hx Contributory? No (DULCE BORGES DO) Review of Systems Review of Systems Constitutional: Denies: fever. EENTM: Reports: no symptoms. Respiratory: Reports: no symptoms. Cardiovascular: Reports: no symptoms. GI: Reports: no symptoms. Genitourinary: Reports: no symptoms. Musculoskeletal: Reports: see HPI. Skin: Reports: see HPI. Neurological/Psychological: Reports: confusion, dementia. Hematologic/Endocrine: Reports: bruising. (DULCE BORGES DO) Physical Exam Physical Exam General Appearance: alert, awake, anxious, moderate distress Head: atraumatic, normal appearance Eyes: Bilateral: normal appearance, PERRL, EOMI. Ears, Nose, Throat: normal pharynx, normal ENT inspection Neck: normal inspection, supple Respiratory: normal breath sounds, chest non-tender, no respiratory distress Cardiovascular: regular rate/rhythm Peripheral Pulses: 4+ radial (R), 4+ radial (L) Gastrointestinal: normal bowel sounds Back: normal inspection Extremities: normal inspection Neurologic/Psych: awake, alert, no motor weakness Skin: intact, normal color, warm/dry Core Measures ACS in differential dx? No CVA/TIA Diagnosis: No Severe Sepsis Present: No Septic Shock Present: No (KATERINA PATTERSON,DULCE Patterson) Progress Differential Diagnoses I considered the following diagnoses in my evaluation of the patient: [Hepatic encephalopathy, intracranial bleed, stroke, adverse drug reaction, dementia] Plan of Care: Orders Procedure Date/time Status Heart Healthy Diet 07/03 D Active Regular Diet 07/03 B Complete Patient Data 07/03 1407 Active Admit to inpatient 07/03 1358 Active Vital Signs 07/03 1358 Active Code Status 07/03 1358 Active Alternative Nursing Therapy 07/03 1134 Active Add-on Test (ER Only) 07/03 1005 Active Continuous Observation Monitor 07/03 0910 Active ED CRISIS PSYCH CONSULT 07/03 0851 Active PT Evaluate & Treat 07/03 2055 Active CASE MANAGEMENT CONSULT 07/02 2054 Active Add-on Test (ER Only) 07/02 1659 Active URINE DRUGS OF ABUSE 07/02 1508 Complete Current Medications Sig/Bennie Start time Last Medication Dose Stop Time Status Admin Acetaminophen 650 MG Q4P PRN 07/03 1330 AC (Tylenol) Risperidone 1 MG BID 07/02 2200 UNVr 07/03 (Risperidone) 0902 Laboratory Tests 07/02/16 1808: Urine Color YEL, Urine Clarity CLEAR, Urine pH 5.5, Ur Specific Mohawk 1.025, Urine Protein 30 H, Urine Ketones NEG, Urine Nitrite NEG, Urine Bilirubin NEG, Urine Urobilinogen 0.2, Ur Leukocyte Esterase NEG, Ur Microscopic SEDIMENT EXAMINED, Urine WBC 3-5 H, Ur Epithelial Cells FEW, Granular Casts 3-5 H, Urine Hemoglobin TRACE-LYSED H, Urine Glucose NEG 07/02/16 1508: Urine Opiates Screen < 100.00, Methadone Screen < 40, Barbiturate Screen < 60, Ur Phencyclidine Scrn < 6.00, Amphetamines Screen < 100, U Benzodiazepines Scrn < 85, Urine Cocaine Screen < 50, Urine Cannabis Screen < 5.00 Microbiology 07/02 1808 URINE ROUT: Urine Culture - RES 7:15 AM PATIENT SIGNED OUT TO ME BY DR TRINIDAD. PENDING CASE MANAGEMENT PLACEMENT. 07/03/2016 2:13:02 PM Patient admitted to the hospital service for [place] him and agitation. Case discussed extensively with case management. (DAO HERRERA MD) Initial ED EKG: none (DULCE BORGES DO) Hand-Off Endorsed To: DAO HERRERA MD (KAREN TRINIDAD MD) Departure Departure Disposition: STILL A PATIENT Condition: Stable Referrals: CHAYITO WALKER,MIMI Valles Departure Forms: Customer Survey General Discharge Information (DULCE BORGES DO) Departure Comments discussed with case management.... they will evaluate patient for alternative placement... will start risperdal 1mg bid for outbursts. (VIVI WALKER,KAREN Levine) Departure Time of Disposition: 1355 Clinical Impression Primary Impression: Agitation Secondary Impressions: Acute delirium Admission Note Spoke With: KIRK IVAN MD Documentation of Exam: Documentation of any treatments & extenuating circumstances including Concerns Regarding Discharge (functional status, medication knowledge or non-compliance, living conditions, etc.) that warrant an admission rather than observation: [ MEDICATION EVALUATION, CASE MANAGEMENT, PHYSICAL THERAPY, CRISIS FOLLOW UP] (DAO HERRERA MD) Critical Care Note Critical Care Note Critical Care Time: 30-74 min (DULCE BORGES DO)
[2016-07-02 12:36] LABS: ABSOLUTE BASOPHIL COUNT 0 /CUMM (0.0-0.2); ABSOLUTE EOSINOPHIL COUNT 0.3 /CUMM (0.0-0.7); ABSOLUTE GRANULOCYTE CT 6.7 /CUMM (1.4-6.5); ABSOLUTE LYMPH COUNT 0.4 /CUMM (1.2-3.4); ABSOLUTE MONOCYTE COUNT 0.4 /CUMM (0.10-0.60); BASOPHIL % 0.2 % (0.0-2.0); EOSINOPHIL % 3.5 % (0-5); HEMATOCRIT 26.5 % (42-52); MEAN CORPUSCULAR HGB 25.6 PG (27.0-31.0); MEAN CORPUSCULAR HGB CONC 31.6 G/DL (33.0-37.0); MEAN CORPUSCULAR VOLUME 80.9 FL (80.0-94.0); RBC DISTRIBUTION WIDTH 20.9 % (11.5-14.5); RED BLOOD CELL CT 3.28 /CUMM (4.70-6.10); WHITE BLOOD CELL COUNT 7.9 /CUMM (4.8-10.8)
[2016-07-02 13:04] LABS: GRANULOCYTE % 85.1 % (42.2-75.2); PLATELET COUNT 230 /CUMM (130-400)
--- NOTE | 2016-07-02 18:40 | CT SCAN REPORT ---
EXAMINATION: CT HEAD WITHOUT CONTRAST CLINICAL INFORMATION: Altered mental status. COMPARISON: Most recent prior CT head dated 07/24/2011 TECHNIQUE: Contiguous axial imaging was performed from the skull base to vertex without intravenous administration of contrast. DLP: 614.86 mGy-cm FINDINGS: There is no CT evidence of acute intra-axial or extra-axial hemorrhage. No acute mass effect or midline shift. Prominence of the ventricles and sulci compatible with age-related involutional changes. Periventricular and subcortical white matter low-attenuation consistent with microvascular ischemic disease. This has advanced over the interval. There is no acute loss of rodriguez-white differentiation. Calcification bilateral basal ganglia noted again. The osseous structures and soft tissues are normal. Visualized paranasal sinuses are well aerated. Hypoplastic bilateral mastoid air cells.. IMPRESSION: No acute intracranial pathology. Subtle interval increase microvascular ischemic disease.
--- NOTE | 2016-07-03 10:25 | ED PSY CRISIS COLLATERAL NOTE ---
See Addendum Collateral Note Collateral Note Family/Inform/Perla Contacts: Ceci daughter in law, face to face meeting: Ceci reports she is worried about his recent behavior as one minute he will be yelling and swearing at her and the next he is friendly. She said he was threatening toward the staff here in the ED and combative with staff at [facility] in [place]. Pt was given an IM to calm down but no restraints were needed. She said they would not like him to go back there. Per Ceci, he makes SI statements when he is in pain " I want to put a gun to my head, why do I have to live this way." Ceci supports finding an appropriate setting for him to live. Per Ceci, toher knowledge he has no hx of substance abuse or mental health issues prior to his recent functioning. She is unclear if it is dementia or Alzheimer's. Susi ( "Stephanie")- daughter [phone]: This journalists and other writers left a voice mail for collateral information at 10:15 am . [facility] [phone]: RN left a voice mail message. 11:30am
--- NOTE | 2016-07-03 15:05 | Admission Certification ---
Admission Certification Certification Statement - As attending physician, I certify that at the time of - admission, based on clinical presentation, severity of - symptoms, need for further diagnostic testing and - therapeutic interventions, and risk of adverse outcomes - without in-hospital treatment, in my clinical assessment, - this patient requires an acute hospital stay for a minimum - of two nights or longer. I have also considered psychsocial - factors such as support system, advanced age, financial - issues, cognitive issues, and failed out-patient treatments, - past re-admission history, safety of patient, and lack of - compliance as applicable. Specific rationale supporting this admission is: Acute delirium with agitated behavior.
--- NOTE | 2016-07-03 15:51 | PN- Att Addend ---
Attending Addendum Attending Brief Note This is a fairly complex 89-year-old male with multiple medical problems who was here at [facility] from June 21 and discharged to [facility] on June 28. 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 He has been in the ER from July 02 (around 1pm) to now (over 24 hours) and during this period has been acutely delirious with a waxing and waning state of mentation. At times he is lucid, and cooperative and at times he is very delirious and agitated. He has received Haldol and Zyprexa with some sedation. On exam and labs there doesn't appear to be any acute focus of infection, electrolyte abnormality or anything obvious that would account for this delirium. CKD and anemia are chronic and stable. His CT head and UA are negative for any acute pathology. Of note he had Serratia bacteremia presumably from a cellulitic/skin source on his last admission and is continuing on his by mouth antibiotics (Cipro) that he scheduled to take till July 07. We'll bring him into Gen med and work him up for ongoing etiology of delirium with the help of crisis/psych. We also have to work on medicating him so that he doesn't cause harm to others or himself while watching his qtc and we need to talk more to his dtr Susi who has more info regarding baseline mentation and possible delrium triggers. She did mention to the ED staff that pain causes him to get more agitated so will give him Tylenol 650mg tid atc and use antipsychotics very sparingly. Will use Trazadone 25mg qhs for sleep and f/u.
--- NOTE | 2016-07-03 16:02 | History & Physical ---
FRANCISCO NAVARRETE MD 07/03/16 1600: General Information and HPI MD Statement: I have seen and personally examined EVE SANTILLAN and documented this H&P. The patient is a 89 year old M who presented with a patient stated chief complaint of [ALTERED MENTATION]. Source of Information: patient, old records, EMS Exam Limitations: clinical condition, confusion History of Present Illness: Patient is a 89 YO M with multiple medical conditions recently discharged from June 28 to [facility], was sent back to ER due to delirium and combative behavior. He has been in the ER for the past 24 hours intermittently combative and agitated. His mental status has been waxing and wenning. He received Zyprexa and Haldol for his agitation in the ER. Reportedly he has been suicidal. During my encounter with the patient is very frustrated, not feeling to answer any questions. past medical history Diastolic congestive heart failure, hypertension, hyperlipidemia, diverticulosis , CTD, bullous pemphigoid, headache ascites with abdominal drain in place - drained 3 times per week. Allergies/Medications Allergies: Coded Allergies: No Known Allergies (05/29/16) Home Med list Cholecalciferol (Vitamin D3) 1,000 UNIT TABLET 2,000 IU PO DAILY bones Ciprofloxacin HCl (Cipro) 500 MG TABLET 1 TAB PO Q24 CELLULITIS Clobetasol Propionate 0.05 % OINT...G. 1 AYAAN TOP BID WOUNDS (Reported) apply to affected area(s) Cyanocobalamin (Vitamin B-12) 1,000 MCG TABLET 1 TAB PO DAILY SUPPLEMENT ( Reported) Diclofenac Sodium (Voltaren) 1 % GEL..GRAM. 1 GM TOP 4 TIMES/DAY HAND PAIN/ RASH apply to affected area(s) Levothyroxine Sodium 100 MCG TABLET 1 TAB PO DAILY AC THYROID (Reported) Silver Sulfadiazine (Silvadene) 1 % CREAM..G. 1 AYAAN TOP DAILY WOUNDS ON LEGS (Reported) apply to affected area(s) Vit A/C/E AC/Znox/Cupric Oxide (Eye Vitamin-Minerals Tablet) 7,160-113 TABLET 1 TAB PO DAILY VITAMIN SUPPORT (Reported) Compliance With Home Meds: UNKNOWN Past History Travel History Traveled to [place] past 21 day No Medical History Neurological: vertigo EENT: cataracts, hearing loss (postop) Cardiovascular: diastolic CHF, hypertension, hyperlipidemia, TR with elevated RV pressure RBBB old antinf [place] by EKG with ? 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 . FH: hepatic cirrhosis BROTHER, ; Cause: Alcoholic cirrhosis. FATHER (fxd neck). , Age 47; Cause: Fall. MOTHER, , Age 70; Cause: Fall. Psychosocial History Who Do You Live With? spouse (dtr), child Services at Home: None Primary Language: Lao ETOH Use: denies use Living Will? no Power of Counter Clerk/HCP? no Functional Ability ADLs Independent: dressing, eating, toileting, bathing. Ambulation: cane IADLs Independent: shopping, housework, finances, food prep, telephone, transportation , medication admin. Review of Systems Review of Systems Constitutional: Reports: see HPI. Comments ROS cannot be appreciated as per the patient's condition Exam & Diagnostic Data Last 24 Hrs of Vital Signs/I&O Vital Signs Date Time Temp Pulse Resp B/P B/P Pulse O2 O2 Flow FiO2 Mean Ox Delivery Rate 07/03 1553 96.1 71 20 142/76 95 Room Air 07/03 1122 96.3 74 20 126/63 96 Room Air 07/03 1000 Room Air 07/03 0620 132/101 07/03 0155 97.0 74 20 129/71 97 Room Air Intake & Output 07/03 1600 07/03 0800 07/03 0000 Intake Total 300 Output Total 100 Balance 200 Intake, Oral 300 Output, Urine 100 Physical Exam General Appearance Alert Skin multiple healing wounds Skin Temp/Moisture Exam: Warm/Dry Sepsis Skin Exam (color): Normal for Ethnicity HEENT Atraumatic, PERRLA Extremities 3+ pitting edema Body Front and Back (Adult) 1) Resolving cellulitis 2) Healing wounds 3) Healing wounds Assessment/Plan Assessment: is a 89-year-old male with multiple medical problems, significant including previous episodes of delirium and agitation requiring hospitalization, presented with acute delirium and belligerent behavior. ER course Vital signs Afebrile, pulse in 80s, blood pressure 1:30 Cosme mmHg, on room air Labs: Normal white count 7900, chronic anemia 8.4 26.5 with an historical values , creatinine of 2.2 with seeing historical values, negative toxicology Plan Admitted to general medicine floor Acute delirium/agitation/belligerent behavior * Ruled out correct imbalances, infectious causes, acute intracranial pathology * Possibly secondary to general deconditioning * Started on risperidone 1 mg twice a day, avoid deleting triggers * Haldol and olanzapine as needed for agitation * Sitter in place, try to avoid physical restraints. * Psych consult History of Serratia marcescens bacteremia * Possible source being skin, has been on ciprofloxacin course * anticipated to be completed on July 07 * Afebrile with normal White count * We will continue the ciprofloxacin 500 daily History of hypothyroidism * Continue levothyroxine 100 g daily DVT prophylaxis * Subcutaneous heparin 5000 3 times a day CODE STATUS * Full code As Ranked By This Provider Problem List: 1. Acute delirium 2. Rash of hands Core Measures/Miscellaneous Acute Coronary Syndrome ACS Diagnosis: No Cerebrovascular Accident CVA/TIA Diagnosis: No Congestive Heart Failure CHF Diagnosis: No Venous Thromboembolism VTE Risk Factors: Immobility, paresis [facility] prophylaxis d/t: No contraindications No VTE Pharm Prophylaxis d/t: No contraindications VTE Diagnosis: No VTE Type: NONE VTE Confirmed by (Test): NONE Severe Sepsis Severe Sepsis Present: No Septic Shock Septic Shock Present: No Miscellaneous Documentation Attending Case Discussed With: MARZENA WALKER,KIRK Hayden Primary Care Physician: SHAQ CLEMENS MD Patient sees these Specialists UNKNOWN Level of Patient Care: General Medicine MARY ANN FERREIRA 07/03/161953: Resident Review Statement Resident Statement: examined this patient, discussed with internal medicine nurse practitioner, agreed with internal medicine nurse practitioner, discussed with family, reviewed images Other Findings: This is an 89 years old gentleman with past medical history of CKD stage IV, diastolic CHF with preserved ejection fraction, cardiac amyloidosis, 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 Per patient's [id number] patient has not been the same in terms of personality and cartasy since after discharge and the condition has been progressively worsening where he is more agitated, swearing and sometimes getting violent throwing things around condition which he did not have in the past. The [id number] denies seeing any fever chills nausea or vomiting. When we tried to ask the patient questions he was very belligerent and refused any participation. Physical examination: Patient was not in acute distress lying comfortably on the bed but noncooperative allowed us only to view his upper and lower extremities and completely denied any kind of physical examination. She has multiple healing wounds on both upper and lower limbs from previous cellulitis Labs: Normal white count 7900, chronic anemia 8.4 26.5 with an historical values , creatinine of 2.2 with seeing historical values, negative toxicology Assessment and plan This is an 89 years old gentleman presenting with acute delirium and agitation and belligerent attitude and not compliant to be examined or take most of his medications. From the workup there is no any evidence of infection and the patient is on ciprofloxacin she was supposed to take for Serratia bacteremia. We will admit the patient to general medicine floor. Provide the patient with one-to-one sitter and avoid mechanical restraints Bfehme-kmn-grshl acetaminophen 650 mg every 8 This patient has received multiple doses of Zyprexa and olanzapine and has no baseline EKG on this admission, get baseline EKG Will consider low-dose trazodone 25 mg daily at bedtime If QTC within range. Consider low-dose Zyprexa or olanzapine for acute agitation Avoid delirium inducing medications Continue all his home medications levothyroxine, B12, clobetasol, B12 and voltren Patient is DNR/DNI Heparin for DVT prophylaxis MARZENA WALKER,KIRK 07/04/16 0826: Attending MD Review Statement Attending Statement Attending MD Statement: examined this patient, discuss w/resident/PA/TELEVISION OPERATOR, agreed w/resident/PA/TELEVISION OPERATOR, reviewed EMR data (avail), reviewed images Attending Assessment/Plan: See medical brief addendum note dated 07/03/16
[2016-07-03 16:25] VITALS: BP 116/72
[2016-07-03 22:26] VITALS: BP 116/60
--- NOTE | 2016-07-04 07:16 | PN- Housestaff ---
LANDON WALKER,FRANCISCO 07/04/16 0715: Subjective Follow-up For: Delirium Subjective: I saw and examined the patient today morning He is walking with the physical therepy today morning using a walker. His son at bedside - reports he is much better than his previous days. when we tried to talk to him, he is still irritable - dont really want to make a conversation with us. Review of Systems Constitutional: Reports: see HPI. Objective Last 24 Hrs of Vital Signs/I&O Vital Signs Date Time Temp Pulse Resp B/P B/P Pulse O2 O2 Flow FiO2 Mean Ox Delivery Rate 07/03 2225 97.7 76 20 116/60 96 Room Air 07/03 1625 98.2 86 19 116/72 95 Room Air 07/03 1553 96.1 71 20 142/76 95 Room Air 07/03 1122 96.3 74 20 126/63 96 Room Air 07/03 1000 Room Air Intake & Output 07/04 0800 07/04 0000 07/03 1600 Intake Total 800 Output Total 325 Balance 475 Intake, Oral 800 Number 1 Bowel Movements Output, Urine 325 Patient 73.936 kg Weight Weight Reported by Patient Measurement Method Physical Exam General Appearance: Alert Skin: resolving cellulitis in both upper and extremities. HEENT: Atraumatic, PERRLA, EOMI Neck: Supple Cardiovascular: Normal S1, Normal S2 Lungs: Clear to Auscultation, Normal Air Movement Abdomen: Normal Bowel Sounds, Soft, No Tenderness Neurological: Normal Speech, Strength at 5/5 X4 Ext, Normal Tone Extremities: No Clubbing, No Cyanosis Current Medications: Current Medications Sig/Bennie Start time Last Medication Dose Route Stop Time Status Admin Acetaminophen 650 MG Q8 07/03 2199 AC 07/04 PO 1341 Acetaminophen 650 MG Q4P PRN 07/03 1330 DC PO Cholecalciferol 2,000 IU DAILY 07/04 1000 AC 07/04 PO 1037 Ciprofloxacin 500 MG Q24 07/04 1000 AC 07/04 PO 07/07 1300 1037 Clobetasol Propionate 1 AYAAN BID 07/03 2200 AC 07/04 TOP 1037 Cyanocobalamin 1,000 MCG DAILY 07/04 1000 AC 07/04 PO 1037 Diclofenac Sodium 1 AYAAN 4 TIMES/DAY 07/03 1800 AC 07/04 TOP 1341 Haloperidol 1 MG ONCE ONE 07/04 0600 DC 07/04 IM 07/04 0601 0600 Haloperidol 5 MG ONCE ONE 07/04 0015 DC 07/04 IM 07/04 0016 0022 Heparin Sodium 5,000 UNIT Q8 07/03 2200 AC 07/04 (Porcine) SC 1341 Levothyroxine Sodium 0.1 MG DAILY AC 07/04 0700 AC 07/04 PO 0654 Melatonin 10 MG AT BEDTIME 07/04 2200 AC PO Risperidone 1 MG BID 07/02 2200 AC 07/04 PO 1037 Silver Sulfadiazine 1 AYAAN DAILY 07/04 1000 AC 07/04 TOP 1037 Trazodone HCl 12.5 MG ONE TIME ONE 07/04 1430 DC PO 07/04 1431 Trazodone HCl 25 MG AT BEDTIME 07/03 2200 AC 07/03 PO 2141 Last 24 Hrs of Lab/Jerel Results Last 24 Hrs of Labs/Mics: Laboratory Tests 07/04/16 0709: Anion Gap 11, Estimated GFR 26 L, BUN/Creatinine Ratio 21.3, Vitamin B12 Pending, Folate Pending, TSH 9.600 H, Free T4 1.31, CBC w Diff NO MAN DIFF REQ, RBC 3.19 L, MCV 80.9, MCH 25.8 L, RDW 20.6 H, MPV 6.0 L, Gran % 87.7 H, Lymphocytes % 3.9 L, Monocytes % 5.7, Eosinophils % 2.4, Basophils % 0.3, Absolute Granulocytes 6.3, Absolute Lymphocytes 0.3 L, Absolute Monocytes 0.4, Absolute Eosinophils 0.2, Absolute Basophils 0, PUBS MCHC 31.9 L Lines/Diet/Fluids Lines: peripheral lines Assessment/Plan Assessment: Patient is a 89-year-old male with multiple medical problems, significant including previous episodes of delirium and agitation requiring hospitalization, presented with acute delirium and belligerent behavior. ER course Vital signs Afebrile, pulse in 80s, on room air Labs: Normal white count 7900, chronic anemia 8.4 26.5 with an historical values , creatinine of 2.2 with seeing historical values, negative toxicology Plan Admitted to general medicine floor Acute delirium/agitation/belligerent behavior * Ruled out electrolyte imbalances, infectious causes, acute intracranial pathology * Possibly secondary to general deconditioning/sleep deprivation/new surroundings in nursing facitlity. * Started on risperidone 1 mg twice a day, avoid delerium triggers * Haldol 2mg Q12 prn as needed for agitation * Sitter in place, try to avoid physical restraints. * Requested ESR, Lyme titer, B12, folate. * Psych consult History of Serratia marcescens bacteremia * Possible source being skin, has been on ciprofloxacin 500 daily - completed by History of hypothyroidism * Continue levothyroxine 100 g daily * TSH, free T4 are 9.6, 1.3 --- probably had an effect DVT prophylaxis * Subcutaneous heparin 5000 3 times a day CODE STATUS * DNR/DNI Problem List: 1. Acute delirium 2. Dementia 3. Agitation 4. Cellulitis 5. Rash of hands Pain Ratin Pain Location: n/a Pain Goal: Remain pain free Pain Plan: tylenol prn Tomorrow's Labs & Rationales: lyme titer ESR B12, folate XU WALKER,CRISTIANO 07/04/16 1410: Attending MD Review Statement Attending Statement Attending MD Statement: examined this patient, discuss w/resident/PA/MANAGER INFORMATION, agreed w/resident/PA/MANAGER INFORMATION, reviewed EMR data (avail), discussed with nursing, discussed with case mgmt, amended to note Attending Assessment/Plan: Patient seen and examined. Alert and oriented 3 although with periods of confusion. He was very jovial. Not in any acute distress. Denied any pain. He remains afebrile and hemodynamically stable. Examination lungs are clear bilaterally. Heart sounds are regular. Abdomen is distended soft and nontender with normal bowel sounds. Extremities reveal healing wounds bilaterally. One consult appreciated. Recommendations: -He is scheduled to undergo his paracentesis today. -Recommend psychiatry evaluation. His confusion may be related to episodes of delirium in the setting of underlying dementia. Avoid delirium triggers. Avoid benzodiazepine therapy. There is no evidence of an acute metabolic process contributing to his confusion. -Further disposition will be decided after evaluation by the psychiatry service.
[2016-07-04 08:04] VITALS: BP 114/60
[2016-07-04 08:12] LABS: ABSOLUTE BASOPHIL COUNT 0 /CUMM (0.0-0.2); ABSOLUTE EOSINOPHIL COUNT 0.2 /CUMM (0.0-0.7); ABSOLUTE GRANULOCYTE CT 6.3 /CUMM (1.4-6.5); ABSOLUTE LYMPH COUNT 0.3 /CUMM (1.2-3.4); ABSOLUTE MONOCYTE COUNT 0.4 /CUMM (0.10-0.60); BASOPHIL % 0.3 % (0.0-2.0); EOSINOPHIL % 2.4 % (0-5); HEMATOCRIT 25.8 % (42-52); MEAN CORPUSCULAR HGB 25.8 PG (27.0-31.0); MEAN CORPUSCULAR HGB CONC 31.9 G/DL (33.0-37.0); MEAN CORPUSCULAR VOLUME 80.9 FL (80.0-94.0); RBC DISTRIBUTION WIDTH 20.6 % (11.5-14.5); RED BLOOD CELL CT 3.19 /CUMM (4.70-6.10); WHITE BLOOD CELL COUNT 7.1 /CUMM (4.8-10.8)
[2016-07-04 08:58] LABS: GRANULOCYTE % 87.7 % (42.2-75.2); PLATELET COUNT 276 /CUMM (130-400)
--- NOTE | 2016-07-04 13:35 | PN- Wound Care ---
Subjective Subjective: Patient was admitted with altered mental status with concern over acute delirium. 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 His prior hospital course was complicated by surgery for sepsis or possibly secondary to his lower extremity ulcers Objective Vital Signs and I&Os Vital Signs Result Date Time O2 Delivery Room Air 07/04 0846 Pulse Ox 96 07/04 0804 B/P 114/60 07/04 0804 Temp 98.1 07/04 0804 Pulse 83 07/04 0804 Resp 20 07/04 0804 Intake & Output 07/04 0000 07/03 1600 07/03 0800 Intake Total 800 Output Total 325 Balance 475 Intake, Oral 800 Number 1 Bowel Movements Output, Urine 325 Patient 163 lb Weight Weight Reported by Patient Measurement Method The wounds previously present over his dorsal hands are markedly improved to healed over the left anterior leg is 7.5 x 8 cm ulcer with red and yellow fill this is at surface without exposed bone or undermining over the right leg is a 9 x 3.5 cm ulcer and 4 x 1.5 cm ulcer also both of which have significant superficial slough there is edema of his feet there is no periwound erythema. Over the left arm is a skin tear with the overlying flap for the most part intact without significant erythema measuring approximately 3 x 4 cm Impression/Plan Impression/Plan Impression/Plan: 89-year-old gentleman admitted with delirium who has evidence of reduced albumin anemia and multiple lower extremity ulcers present on admission. His wounds are generally improved and would recommend aggressive cleansing for removal of slough and use of Xeroform daily he should be placed on a low air loss mattress and his heels protected from pressure. Address nutritional parameters with hypoalbuminemia
--- NOTE | 2016-07-04 14:39 | Cons- Psychiatry ---
Psychiatric Consult Date of Consult: 07/04/16 Reason for Consult: "acute delirium, combative behavior, waxing and waining" Ordered by Dr. Jimenez Attending Dr. Walker History of Present Illness: Identifying Info: 89-year-old male presents to [facility] emergency department on 07/03/2016 for increasing combative behavior at home. The patient was admitted to medicine to rule out delirium. CC: "I called the police" HPI: Patient with recent stay at [facility] from 06/21/16 to 06/28/2016 for edema to the lower extremities and pain. At that visit he experienced bacteremia likely due to cellulitis and discharged on Cipro. There were no psychiatric issues during that stay but once discharged to [facility] he began experiencing behavioral issues with no obvious apparent cause which have been intermittent and continued to the present. He becomes confused at times and can be combative with care. He has attempted to strike staff. Per collateral collected by Rosmery Lentz [facility] in ED "Ceci daughter in law, face to face meeting: Ceci reports she is worried about his recent behavior as one minute he will be yelling and swearing at her and the next he is friendly. She said he was threatening toward the staff here in the ED and combative with staff at [facility] in [place]. Pt was given an IM to calm down but no restraints were needed. She said they would not like him to go back there. Per Ceci, he makes SI statements when he is in pain " I want to put a gun to my head, why do I have to live this way." Ceci supports finding an appropriate setting for him to live. Per Ceci, to her knowledge he has no hx of substance abuse or mental health issues prior to his recent functioning. She is unclear if it is dementia or Alzheimer's." Discussed case patient's son Jerome. He states that for 3-4 weeks his father's behaviors have been increasingly [id number] and unpredictable. He finds him at times talking in circles and combative but at other times calm and cooperative, for example this morning when he ate breakfast in the hospital. He attributes some of his father's behaviors to pain in his legs but also to embarrassment at having to be cared for especially when he has a bowel movement or requires ashwin-care. To his knowledge his father has never received a formal dementia assessment but there is a strong family history of dementia. 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 [place]. 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 WWII vet that did not serve in combat. Abuse/Trauma: Did not assess. Current Home Psychotropic Medications: None Current Hospital Psychotropic Medications: Med Risperidone 1 MG PO BID 07/02/16 2200 Trazodone HCl 25 MG PO AT BEDTIME 07/03/16 220 Allergies: Coded Allergies: No Known Allergies (05/29/16) Current Medications: Current Medications Sig/Bennie Start time Last Medication Dose Route Stop Time Status Admin Acetaminophen 650 MG Q8 07/03 2199 AC 07/04 PO 1341 Acetaminophen 650 MG Q4P PRN 07/03 1330 DC PO Cholecalciferol 2,000 IU DAILY 07/04 1000 AC 07/04 PO 1037 Ciprofloxacin 500 MG Q24 07/04 1000 AC 07/04 PO 07/07 1300 1037 Clobetasol Propionate 1 AYAAN BID 07/03 220 AC 07/04 TOP 1037 Cyanocobalamin 1,000 MCG DAILY 07/04 1000 AC 07/04 PO 1037 Diclofenac Sodium 1 AYAAN 4 TIMES/DAY 07/03 1800 AC 07/04 TOP 1341 Haloperidol 1 MG ONCE ONE 07/04 0600 DC 07/04 IM 07/04 0601 0600 Haloperidol 5 MG ONCE ONE 07/04 0015 DC 07/04 IM 07/04 0016 0022 Heparin Sodium 5,000 UNIT Q8 07/030 AC 07/04 (Porcine) SC 1341 Levothyroxine Sodium 0.1 MG DAILY AC 07/04 0700 AC 07/04 PO 0654 Melatonin 10 MG AT BEDTIME 07/04 220 AC PO Risperidone 1 MG BID 07/02 2200 AC 07/04 PO 1037 Silver Sulfadiazine 1 AYAAN DAILY 07/04 1000 AC 07/04 TOP 1037 Trazodone HCl 12.5 MG ONE TIME ONE 07/04 1430 DC PO 07/04 1431 Trazodone HCl 25 MG AT BEDTIME 07/03 2200 AC 07/03 PO 2141 Past History Past Medical History Neurological: vertigo EENT: cataracts, hearing loss (postop) Cardiovascular: diastolic CHF, hypertension, hyperlipidemia, TR with elevated RV pressure RBBB old antinf UT by EKG with ? 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 & adjacent blood clot Renal: chronic kidney disease Musculoskeletal: falls, BULLOUS PEMPHIGOID Psychiatric: NONE Endocrine: NONE Blood Disorders: anemia Cancer(s): NONE COMPLEX CASE MANAGER/Reproductive: NONE Past Surgical History Surgical History: cataract removal Psychosocial History Strengths/Capabilities: Supportive family Physical Limitations (Interventions): Multiple medical comorbidities. Psychiatric Treatment History Psych Treatment Psychiatric Treatment No Diagnosis: Rule out unspecified neurocognitive disorder Risk Factors: age (under 24/over 65), chronic/serious med cond., male Substance Use/Abuse History Drug Use/Abuse Substances Used/Abused No Substance Abuse Treatment Substance Abuse Treatment Past Substance Abuse [place] No Assessment/Plan Mental Status Mental Status Exam: Mental Status Exam Presentation/Appearance: Cooperative with evaluation. Hospital garb. Calm and pleasant Orientation: Oriented to self, states place as "rehab," date as Saturday Sensorium: Awake and alert Eye contact: Appropriate Affect: Somewhat blunted Mood: "Feel good" Depression: Denies Anxiety: Denies Thought Content: - Denies SI/HI, AH/VH, PI. States and also believes they will not kill themselves. - Denies Hopeless/Helpless Thoughts Thought Process: Confused at times Associations: Loose at times Speech: dysarthric Judgment: Impaired Insight: Impaired Cognition: Memory: Deficits noted Attention/Concentration: Some impairment Fund of Knowledge: States president is "Gianlucaalesia... Schaefer... Herrera... Now Parra" Abstractions: Did not assess MMSE: Did not assess Brief ROS Gait: Unsteady per report Sleep: Interrupted, up and aggitated at night Appetite: Adequate Energy: WNL IADLs/ADLs: With assisst Visited patient once again at 14:15. He was yelling that he wanted to get out of bed and attempting to strike staff when redirection was attempted. When patient was encouraged to use bedpan and urinal he did so and calmed considerably. When necessary by mouth medication was offered which the patient spit out. Lab Results: Laboratory Tests 07/04/16 0709: Anion Gap 11, Estimated GFR 26 L, BUN/Creatinine Ratio 21.3, Vitamin B12 > 1000 H, Folate 10.0, TSH 9.600 H, Free T4 1.31, CBC w Diff NO MAN DIFF REQ, RBC 3.19 L, MCV 80.9, MCH 25.8 L, RDW 20.6 H, MPV 6.0 L, Gran % 87.7 H, Lymphocytes % 3.9 L, Monocytes % 5.7, Eosinophils % 2.4, Basophils % 0.3, Absolute Granulocytes 6.3, Absolute Lymphocytes 0.3 L, Absolute Monocytes 0.4, Absolute Eosinophils 0.2, Absolute Basophils 0, PUBS MCHC 31.9 L 07/02/16 1808: Urine Color YEL, Urine Clarity CLEAR, Urine pH 5.5, Ur Specific Chamberlain 1.025, Urine Protein 30 H, Urine Ketones NEG, Urine Nitrite NEG, Urine Bilirubin NEG, Urine Urobilinogen 0.2, Ur Leukocyte Esterase NEG, Ur Microscopic SEDIMENT EXAMINED, Urine WBC 3-5 H, Ur Epithelial Cells FEW, Granular Casts 3-5 H, Urine Hemoglobin TRACE-LYSED H, Urine Glucose NEG 07/02/16 1508: Urine Opiates Screen < 100.00, Methadone Screen < 40, Barbiturate Screen < 60, Ur Phencyclidine Scrn < 6.00, Amphetamines Screen < 100, U Benzodiazepines Scrn < 85, Urine Cocaine Screen < 50, Urine Cannabis Screen < 5.00 07/02/16 1222: Anion Gap 8, Estimated GFR 28 L, BUN/Creatinine Ratio 22.7, Glucose 77, Calcium 7.6 L, Total Bilirubin 0.5, AST 21, ALT 20 L, Alkaline Phosphatase 78, Total Protein 5.1 L, Albumin 2.1 L, Globulin 3.0, Albumin/Globulin Ratio 0.7 L, CBC w Diff NO MAN DIFF REQ, RBC 3.28 L, MCV 80.9, MCH 25.6 L, RDW 20.9 H, MPV 6.0 L, Gran % 85.1 H, Lymphocytes % 5.6 L, Monocytes % 5.6, Eosinophils % 3.5, Basophils % 0.2, Absolute Granulocytes 6.7 H, Absolute Lymphocytes 0.4 L, Absolute Monocytes 0.4, Absolute Eosinophils 0.3, Absolute Basophils 0, PUBS MCHC 31.6 L Microbiology 07/02 1808 URINE ROUT: Urine Culture - COMP Diffential Diagnosis: Delirium due to unknown etiology Rule out unspecified neurocognitive disorder Impression: Case discussed with chief psychiatry Adrien Pérez MD. 89-year-old male presents with alterations in mental status for a few weeks. By report it appears at baseline he does have neurocognitive deficits but confusion and combativeness have become problematic recently. The acuteness of the onset of these alterations suggests a delirious process as well as their waxing and waning. At present, etiology is unknown but there are multiple potential causes that must be ruled out. Of note the patient had a recent infection that he is still currently being treated for which he potentially be experiencing residual confusional symptoms from. He is also being treated with Cipro which in rare cases can contribute to acute confusional states. Additionally the patient is known to have visual and auditory deficits which can predispose individuals to acute confusion especially in unfamiliar environments. More lab work and investigation is required however while patient is evaluated he would benefit from medication to reduce agitation on an as- needed basis. If he does receive medication regularly he may benefit from scheduled dosing. Provisional Treatment Plan: 1. To rule out additional potential causes of acute confusional states please order: - Thyroid panel - B12 & Folate - ESR - VDRL - Lyme titer - Ammonia 2. Consider neurology consult for evaluation of dementia. This may be more appropriate on an outpatient basis. 3. It would be prudent to minimize the number of different psychotropic agents the patient is receiving. Of note, atypical antipsychotics are associated with greater incidence of CVA and sudden in the elderly. Please: - Discontinue risperdal, if patient requires emergency IM medication he would require a second antipsychotic which would not be advised - Do not order additional olanzapine - Consider haldol 2mg PO PRN Q12H for dangerous agitation, consider IM formulation only if patient is unable to take PO. EKG, Mg and K will need to monitored on this medication. 4. Please continue to avoid benzodiazepines, opioid analgesics, and meds with strong anticholinergic properties as much as possible to prevent further confusion. 5. Please initiate the following nonpharmacologic interventions: -Avoid nursing and medical procedures during sleep hours whenever possible - Cluster at night interventions that must be completed as much as possible to minimize sleep disruption - Decrease noise patient area during sleeping hours - Reduce lighting at night - Ensure patient has any sensory aids close by that he regularly uses 6. Recommend melatonin 10 mg daily at bedtime. 7. Please discontinue Trazodone. Thank you for including psychiatry in this case we'll continue to follow.
--- NOTE | 2016-07-04 14:54 | Discharge Summary ---
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 The patient was discharged from June [address] [facility] for rehabilitation. While in the facility was noted to be aggressive and delirious reason for which he was readmitted to . Patient was admitted to general medicine floor and we managed him for the following conditions. Acute delirium/agitation/belligerent behavior Initially the patient was held in the ER for about 24 hours before being admitted to general medicine floor. She received multiple doses of risperidone and haloperidol and continued to have waxing and waning with periods of complete baseline and at other periods of severe agitation and belligerent behavior. Patient was seen by psychiatry team which advised against using antipsychotic medication given its adverse effect in senior citizens. He was put on haloperidol 2 mg twice a day when necessary for severe agitation with plans to reduce distraction and allow the patient to rest with minimum disturbance. Patient had one-to-one sitter on the early days of admission. This patient might be developing dementia which is now associated with agitation he will need to have neurologic review for possible dementia assessment. Continue to avoid delirium inducing medication especially benzodiazepines. Patient has been given instruction to follow up with metal expediter for dementia workup. History of Serratia marcescens bacteremia Patient had this diagnosis since the previous admission and was discharged on oral ciprofloxacin 500 mg daily. On presentation the patient had no signs of infection and had normal white blood cell counts. We'll continue the patient on his home dose of ciprofloxacin and the plan per previous review by infectious diseases is to complete the medication on July 07. Patient completed the course of ciprofloxacin before discharge. History of hypothyroidism Patient has history of hypothyroidism. At home the patient is on levothyroxine 100 g daily. Repeated TSH shows slight increase to 9.6 from 4.1 in March 2016. We have increased Levothyroxine to 125mcg. Patient will go home on the higher dose. He will need to check his TSH after 6-8 weeks to follow-up on the efficacy of the high dose of levothyroxine. Chronic recurrent ascites Patient has chronic ascites that has necessitated large-volume ascites fluid tapping in the past. From previous admission the patient has an indwelling peritoneal catheter and is required to be tapped 500 mL every Saturday and Saturday. During the course of this admission with continued with peritoneal fluid taps and is supposed to continue with them post discharge three days a week. Positive Lyme titers Initially on presentation with delirium could not identify common causes of delirium as applicable for this patient. We called IN psych review and in the workup for delirium requested Lyme titers. The titers were positive for Lyme disease and multiple immunoglobulins. Patient will need to follow-up with primary care physician regarding the significance of these isolated positive Lyme titers and if subsequent treatment is required. Complications: None Allergies: Coded Allergies: No Known Allergies (05/29/16) Significant Procedures: CT head No acute intracranial pathology. Subtle interval increase microvascular ischemic disease. Pertinent Lab Results: Laboratory Tests 07/05 07/04 0636 0709 Chemistry Sodium (137 - 145 mmol/L) 139 Potassium (3.5 - 5.1 mmol/L) 5.0 Chloride (98 - 107 mmol/L) 111 H Carbon Dioxide (22 - 30 mmol/L) 18 L Anion Gap (5 - 16) 11 BUN (9 - 20 mg/dL) 51 H Creatinine (0.7 - 1.2 mg/dL) 2.4 H Estimated GFR (>60 ml/min) 26 L BUN/Creatinine Ratio (7 - 25 %) 21.3 Vitamin B12 (239 - 931 pg/mL) > 1000 H Folate (2.76 - 20.0 ng/mL) 10.0 TSH (0.270 - 4.200 uIU/mL) 9.600 H Free T4 (0.85 - 1.93 ng/dL) 1.31 Hematology CBC w Diff NO MAN DIFF REQ WBC (4.8 - 10.8 /CUMM) 7.1 RBC (4.70 - 6.10 /CUMM) 3.19 L Hgb (14.0 - 18.0 G/DL) 8.2 L Hct (42 - 52 %) 25.8 L MCV (80.0 - 94.0 FL) 80.9 MCH (27.0 - 31.0 PG) 25.8 L RDW (11.5 - 14.5 %) 20.6 H Plt Count (130 - 400 /CUMM) 276 MPV (7.4 - 10.4 FL) 6.0 L Gran % (42.2 - 75.2 %) 87.7 H Lymphocytes % (20.5 - 51.1 %) 3.9 L Monocytes % (1.7 - 9.3 %) 5.7 Eosinophils % (0 - 5 %) 2.4 Basophils % (0.0 - 2.0 %) 0.3 Absolute Granulocytes (1.4 - 6.5 /CUMM) 6.3 Absolute Lymphocytes (1.2 - 3.4 /CUMM) 0.3 L Absolute Monocytes (0.10 - 0.60 /CUMM) 0.4 Absolute Eosinophils (0.0 - 0.7 /CUMM) 0.2 Absolute Basophils (0.0 - 0.2 /CUMM) 0 PUBS MCHC (33.0 - 37.0 G/DL) 31.9 L ESR Westergren Pending Serology RPR Titer/FTA Pending Lyme Disease Antibody Pending 07/02 07/02 1808 1508 Toxicology Urine Opiates Screen (>2000 NG/ML) < 100.00 Methadone Screen (>300 NG/ML) < 40 Barbiturate Screen (>200 NG/ML) < 60 Ur Phencyclidine Scrn (>25 NG/ML) < 6.00 Amphetamines Screen (>1000 NG/ML) < 100 U Benzodiazepines Scrn (>200 NG/ML) < 85 Urine Cocaine Screen (>300 NG/ML) < 50 Urine Cannabis Screen (>50 NG/ML) < 5.00 Urines Urine Color (YEL,AMB,STR) YEL Urine Clarity (CLEAR) CLEAR Urine pH (5.0 - 8.0) 5.5 Ur Specific [place] (1.001 - 1.035) 1.025 Urine Protein (NEG,<30 MG/DL) 30 H Urine Ketones (NEG) NEG Urine Nitrite (NEG) NEG Urine Bilirubin (NEG) NEG Urine Urobilinogen (0.1 - 1.0 EU/dl) 0.2 Ur Leukocyte Esterase (NEG) NEG Ur Microscopic SEDIMENT EXAMINED Urine WBC (0 - 2 /HPF) 3-5 H Ur Epithelial Cells (NONE,FEW) FEW Granular Casts (NONE /LPF) 3-5 H Urine Hemoglobin (NEG) TRACE-LYSED H Urine Glucose (N MG/DL) NEG 07/02 1222 Chemistry Sodium (137 - 145 mmol/L) 140 Potassium (3.5 - 5.1 mmol/L) 4.8 Chloride (98 - 107 mmol/L) 112 H Carbon Dioxide (22 - 30 mmol/L) 20 L Anion Gap (5 - 16) 8 BUN (9 - 20 mg/dL) 50 H Creatinine (0.7 - 1.2 mg/dL) 2.2 H Estimated GFR (>60 ml/min) 28 L BUN/Creatinine Ratio (7 - 25 %) 22.7 Glucose (65 - 99 mg/dL) 77 Calcium (8.4 - 10.2 mg/dL) 7.6 L Total Bilirubin (0.2 - 1.3 mg/dL) 0.5 AST (17 - 59 U/L) 21 ALT (21 - 72 U/L) 20 L Alkaline Phosphatase (< 127 U/L) 78 Total Protein (6.3 - 8.2 g/dL) 5.1 L Albumin (3.5 - 5.0 g/dL) 2.1 L Globulin (1.9 - 4.2 gm/dL) 3.0 Albumin/Globulin Ratio (1.1 - 2.2 %) 0.7 L Hematology CBC w Diff NO MAN DIFF REQ WBC (4.8 - 10.8 /CUMM) 7.9 RBC (4.70 - 6.10 /CUMM) 3.28 L Hgb (14.0 - 18.0 G/DL) 8.4 L Hct (42 - 52 %) 26.5 L MCV (80.0 - 94.0 FL) 80.9 MCH (27.0 - 31.0 PG) 25.6 L RDW (11.5 - 14.5 %) 20.9 H Plt Count (130 - 400 /CUMM) 230 MPV (7.4 - 10.4 FL) 6.0 L Gran % (42.2 - 75.2 %) 85.1 H Lymphocytes % (20.5 - 51.1 %) 5.6 L Monocytes % (1.7 - 9.3 %) 5.6 Eosinophils % (0 - 5 %) 3.5 Basophils % (0.0 - 2.0 %) 0.2 Absolute Granulocytes (1.4 - 6.5 /CUMM) 6.7 H Absolute Lymphocytes (1.2 - 3.4 /CUMM) 0.4 L Absolute Monocytes (0.10 - 0.60 /CUMM) 0.4 Absolute Eosinophils (0.0 - 0.7 /CUMM) 0.3 Absolute Basophils (0.0 - 0.2 /CUMM) 0 PUBS MCHC (33.0 - 37.0 G/DL) 31.6 L Disposition Summary Disposition Principal Diagnosis: Acute delirium Hypothyroidism Additional Diagnosis: Serratia Bacteremia Diastolic CHF CKD Discharge Disposition: home health services Discharge Instructions General Discharge Information Code Status: Do Not Resucitate/Intubat Patient's Diet: Heart healthy low-sodium diet Patient's Activity: As tolerated Follow-Up Instructions/Appts: Please call and make a follow-up with your primary care physician within one week after discharge. This patient will need to be evaluated by metal expediter for possibility of dementia predisposing the patient to delirium. Medications at Discharge Discharge Medications: Stop taking the following medications: Levothyroxine Sodium (Levothyroxine Sodium) 100 MCG TABLET ORAL DAILY BEFORE BREAKFAST Qty = 30 Ciprofloxacin HCl (Cipro) 500 MG TABLET ORAL EVERY 24 HOURS Days = 9 Continue taking these medications: Cyanocobalamin (Vitamin B-12) 1,000 MCG TABLET 1 Tablet ORAL DAILY Comments: Last Taken: 07/08/16 Time: 0930 AM Vit A/C/E AC/Znox/Cupric Oxide (Eye Vitamin-Minerals Tablet) 7,160-113 TABLET 1 Tablet ORAL DAILY Comments: NOT GIVEN IN HOSPITAL Cholecalciferol (Vitamin D3) 1,000 UNIT TABLET 2,000 International Unit ORAL DAILY Days = 30 Comments: Last Taken: 07/08/16 Time: 0930 AM Clobetasol Propionate (Clobetasol Propionate) 0.05 % OINT...G. 1 Application On the skin TWICE DAILY Qty = 60 Instructions: apply to affected areas Comments: Last Taken: 07/08/16 Time: 0930 AM Diclofenac Sodium (Voltaren) 1 % GEL..GRAM. 1 Gram On the skin 4 TIMES A DAY Qty = 1 Instructions: apply to affected area(s) Comments: Last Taken: 07/06/16 Time: 9:30 PM Silver Sulfadiazine (Silvadene) 1 % CREAM..G. 1 Application On the skin DAILY Qty = 100 Instructions: apply to affected area(s) Comments: Last Taken: 07/06/16 Time: 1000 AM Start taking the following new medications: Levothyroxine Sodium (Synthroid) 125 MCG TABLET 0.125 Milligram ORAL DAILY BEFORE BREAKFAST Qty = 30 No Refills Copies To: JAYLEEN WALKER,BERRY CANDELARIO MD,CHEY Attending MD Review Statement Documenting Attending: RCISTIANO MCNAIR M.D Other Findings: I have reviewed the discharge summary.
[2016-07-04 22:44] VITALS: BP 130/84
--- NOTE | 2016-07-05 07:08 | PN- Housestaff ---
LANDON WALKER,FRANCISCO 07/05/16 0707: Subjective Follow-up For: Delirium Subjective: I saw and examined the patient today morning No overnight events - not agitated any more. He is lying comfortably in the chair. Taking his pills, willing to talk. Review of Systems Constitutional: Reports: see HPI. Comments: ROS negative except the above. Objective Last 24 Hrs of Vital Signs/I&O Vital Signs Date Time Temp Pulse Resp B/P B/P Pulse O2 O2 Flow FiO2 Mean Ox Delivery Rate 07/04 2244 97.9 79 20 130/84 98 Room Air 07/04 1517 Room Air 07/04 0846 Room Air 07/04 0804 98.1 83 20 114/60 96 Room Air Intake & Output 07/05 0800 07/05 0000 07/04 1600 Intake Total 400 250 600 Output Total 1000 Balance 400 250 -400 Intake, Oral 400 250 600 Number 1 Bowel Movements Output, Other 500 Output, Urine 500 Physical Exam General Appearance: Alert, Oriented X3, Cooperative, No Acute Distress Skin: well dressed wounds on upper and lower extremities. HEENT: Atraumatic, PERRLA, EOMI Neck: Supple Cardiovascular: Normal S1, Normal S2 Lungs: Clear to Auscultation, Normal Air Movement Abdomen: Normal Bowel Sounds, Soft, No Tenderness Current Medications: Current Medications Sig/Bennie Start time Last Medication Dose Route Stop Time Status Admin Acetaminophen 650 MG Q8 07/03 2199 AC 07/04 PO 2039 Cholecalciferol 2,000 IU DAILY 07/04 1000 AC 07/04 PO 1037 Ciprofloxacin 500 MG Q24 07/04 1000 AC 07/04 PO 07/07 1300 1037 Clobetasol Propionate 1 AYAAN BID 07/03 220 AC 07/04 TOP 203 Cyanocobalamin 1,000 MCG DAILY 07/04 1000 AC 07/04 PO 1037 Diclofenac Sodium 1 AYAAN 4 TIMES/DAY 07/03 1800 AC 07/04 TOP 205 Heparin Sodium 5,000 UNIT Q8 07/03 2199 AC 07/04 (Porcine) SC 204 Levothyroxine Sodium 0.1 MG DAILY AC 07/04 0700 AC 07/05 PO 0613 Melatonin 10 MG AT BEDTIME 07/04 2200 AC 07/04 PO 2050 Risperidone 1 MG BID 07/02 2200 DC 07/04 PO 2040 Silver Sulfadiazine 1 AYAAN DAILY 07/04 1000 AC 07/04 TOP 1037 Trazodone HCl 12.5 MG ONE TIME ONE 07/04 1430 DC PO 07/04 1431 Trazodone HCl 25 MG AT BEDTIME 07/03 2200 AC 07/04 PO 6 Last 24 Hrs of Lab/Jerel Results Last 24 Hrs of Labs/Mics: Laboratory Tests 07/05/16 0636: ESR Westergren 70 H, RPR Titer/FTA NONREACTIVE, Lyme Disease Antibody 1.06 *H 07/05/16 0600: Lyme Ab (Western Blot) Pending, Lyme IgG 18 kDa Band Pending, Lyme IgG 23 kDa Band Pending, Lyme IgG 28 kDa Band Pending, Lyme IgG 30 kDa Band Pending, Lyme IgG 39 kDa Band Pending, Lyme IgG 41 kDa Band Pending, Lyme IgG 45 kDa Band Pending, Lyme IgG 58 kDa Band Pending, Lyme IgG 66 kDa Band Pending, Lyme IgG 93 kDa Band Pending, Lyme IgM (Western Blot) Pending, Lyme IgM 23 kDa Band Pending, Lyme IgM 39 kDa Band Pending, Lyme IgM 41 kDa Band Pending Lines/Diet/Fluids Lines: peripheral lines Assessment/Plan Assessment: Patient is a 89-year-old male with multiple medical problems, significant including previous episodes of delirium and agitation requiring hospitalization, presented with acute delirium and belligerent behavior. ER course Vital signs Afebrile, pulse in 80s, on room air Labs: Normal white count 7900, chronic anemia 8.4 26.5 with an historical values , creatinine of 2.2 with seeing historical values, negative toxicology Plan Admitted to general medicine floor Acute delirium/agitation/belligerent behavior * Ruled out electrolyte imbalances, infectious causes, acute intracranial pathology * Possibly secondary to general deconditioning/sleep deprivation/new surroundings in nursing facitlity. * Discontinued risperidone, Avoid benzos, opiates. * Haldol 2mg Q12 prn as needed for agitation * Sitter in place, try to avoid physical restraints. * ESR - 70, [place] titer postive (will evaluate whether acute/chronic), TSH elevated. * Psych consult - appreciate their recommendations. History of Serratia marcescens bacteremia * Possible source being skin, has been on ciprofloxacin 500 daily - completed by 20th History of hypothyroidism * Increased levothyroxine dose increased to 125mcg/day. * TSH, free T4 are 9.6, 1.3. TSH doubled from previous reading. DVT prophylaxis * Subcutaneous heparin 5000 3 times a day CODE STATUS * DNR/DNI Problem List: 1. Acute delirium 2. Rash of hands 3. Dementia 4. Agitation 5. Atrial fibrillation Pain Ratin Pain Location: n/a Pain Goal: Pain 4 or less Pain Plan: tylenol prn Tomorrow's Labs & Rationales: Lyme titers XU WALKER,CRISTIANO 07/05/16 1334: Attending MD Review Statement Attending Statement Attending MD Statement: examined this patient, discuss w/resident/PA/SUPERVISOR INSECTICIDE, agreed w/resident/PA/SUPERVISOR INSECTICIDE, reviewed EMR data (avail), discussed with nursing, discussed with case mgmt, amended to note Attending Assessment/Plan: Patient seen and examined. This morning nursing staff reports less episodes of confusion. He was sitting up in the chair not in any distress. Denied any pain. Mentating appropriately and been very jovial. He has been evaluated by the physical therapy service and recommendations are for discharge to [facility] for continued rehabilitation. Psychiatric consultation appreciated. His acute confusional state has been attributed to delirium from unfamiliar environments in the setting of his baseline comorbidities. Recommendations: -Avoid delirium triggers. Medication recommendations from the psychiatric service appreciated. -TSH level found to be elevated. Increase dose of Synthroid to 125 g daily. Repeat TSH in 6-8 weeks. -Significance of his elevated ESR in the setting of his ongoing treatment for bacteremia is uncertain. He shows no evidence of an acute infectious process at present. He is afebrile. He has no leukocytosis. He is hemodynamically stable. Recommend repeating ESR at the end of treatment for his bacteremia. -His Lyme titer is positive. Check IgG/IgM levels. -Patient is medically stable to be discharged back to his [facility] facility.
[2016-07-05 07:31] VITALS: BP 128/72
--- NOTE | 2016-07-05 08:55 | PN- Wound Care ---
Subjective Subjective: Patient still confused but more awake and alert out of bed feeding himself. His wounds have been cleansed and this slough has been partly able to be removed Objective Vital Signs and I&Os Vital Signs Result Date Time Pulse Ox 96 07/05 730 B/P 128/72 07/05 730 O2 Delivery Room Air 07/05 730 Temp 97.6 07/05 730 Pulse 64 07/05 0731 Resp 20 07/05 730 Intake & Output 07/05 0000 07/04 1600 07/04 0800 Intake Total 250 600 550 Output Total 1000 400 Balance 250 -400 150 Intake, Oral 250 600 550 Number 1 Bowel Movements Output, Other 500 Output, Urine 500 400 Exam of bilateral lower extremity wounds shows them to be improved after aggressive cleansing there are areas of enid-epithelialization. There is no suggestion of soft tissue infection Impression/Plan Impression/Plan Impression/Plan: 89-year-old gentleman admitted with delirium who has evidence of reduced albumin anemia and multiple lower extremity ulcers present on admission. His wounds are generally improved and would recommend aggressive cleansing for removal of slough and use of Xeroform daily he should be placed on a low air loss mattress and his heels protected from pressure. Address nutritional parameters with hypoalbuminemia. Continue aggressive wound cleaning daily Xeroform and leg elevation when not out of bed
[2016-07-05 15:29] VITALS: BP 98/60
--- NOTE | 2016-07-05 20:38 | Event Note ---
Event Note Event Note: The patient tried to get up to go to the bathroom by himself. He became agitated. Haldol 2 mg IM was given as a when necessary order
[2016-07-05] MEDS ORDERED: SYNTHROID125 MCG PO (22:15)
--- NOTE | 2016-07-05 22:32 | Patient Discharge Instructions ---
Discharge Instructions General Discharge Information You were seen/treated for: Acute delirium Special Instructions: Please call and make a follow up with your primary care physician within one week after discharge. Please call and make a follow up with energy efficiency specialist contact, phone number and address provided Please recheck his TSH in 6 weeks as his levothyroxine dose is increased. Please follow up regarding positive lyme titers as an outpatient. Diet Continue normal diet: Yes Activity Activity Self Limited: Yes Acute Coronary Syndrome Inclusion Criteria At DC or during hospital stay patient has or had the following: ACS DIAGNOSIS No Discharge Core Measures Meds if any: Prescribed or Continued at Discharge Meds if any: NOT Prescribed or Continued at Discharge Congestive Heart Failure Inclusion Criteria At DC or during hospital stay patient has or had the following: CHF DIAGNOSIS No Discharge Core Measures Meds if any: Prescribed or Continued at Discharge Meds if any: NOT Prescribed or Continued at Discharge Cerebrovascular accident Inclusion Criteria At DC or during hospital stay patient has or had the following: CVA/TIA Diagnosis No Discharge Core Measures Meds if any: Prescribed or Continued at Discharge Meds if any: NOT Prescribed or Continued at Discharge Venous thromboembolism Inclusion Criteria VTE Diagnosis No VTE Type NONE VTE Confirmed by (Test) NONE Discharge Core Measures - Per Current guidelines, there needs to be overlap - treatment for the first 5 days of Warfarin therapy. - If discharged on Warfarin prior to 5 days of - overlap therapy, the patient will need to be - assessed for post discharge needs including - *Post discharge parental anticoagulation - *Warfarin and/or parental anticoagulation education - *Follow up date to check INR post discharge At least 5 days overlap therapy as Inpatient No Meds if any: Prescribed or Continued at Discharge Note: Overlap Therapy is Warfarin and Anticoagulant Meds if any: NOT Prescribed or Continued at Discharge
[2016-07-05 22:42] VITALS: BP 100/60
[2016-07-06 05:46] VITALS: BP 100/64
--- NOTE | 2016-07-06 08:29 | PN- Housestaff ---
LANDON WALKER,FRANCSICO 07/06/16 0828: Subjective Follow-up For: Delirium - probably from underlying dementia Subjective: I saw the patient today morning He is sitting comfortably in the chair. Reading newspaper, at bedside - discussed concerns. Review of Systems Constitutional: Reports: see HPI. Objective Last 24 Hrs of Vital Signs/I&O Vital Signs Date Time Temp Pulse Resp B/P B/P Pulse O2 O2 Flow FiO2 Mean Ox Delivery Rate 07/06 0546 98.9 72 20 100/64 96 Room Air 07/05 2242 97.9 80 20 100/60 95 Room Air 07/05 1529 97.9 75 20 98/60 98 Room Air 07/05 1156 Room Air Intake & Output 07/06 1600 07/06 0800 07/06 0000 Intake Total 240 240 Output Total 400 300 Balance -160 -60 Intake, Oral 240 240 Number 1 0 Bowel Movements Output, Urine 400 300 Physical Exam General Appearance: Alert, Oriented X3, Cooperative, No Acute Distress Skin: No Rashes, No Breakdown, resolving cellulits HEENT: Atraumatic, PERRLA, EOMI Neck: Supple Cardiovascular: Normal S1, Normal S2 Lungs: Clear to Auscultation, Normal Air Movement Abdomen: distended with cirrhotic fluid Neurological: Sensation Intact, Cranial Nerves 3-12 NL, Reflexes 2+ Current Medications: Current Medications Sig/Bennie Start time Last Medication Dose Route Stop Time Status Admin Acetaminophen 650 MG Q8 07/03 2199 AC 07/05 PO 205 Cholecalciferol 2,000 IU DAILY 07/04 1000 AC 07/05 PO 0932 Ciprofloxacin 500 MG Q24 07/04 1000 AC 07/05 PO 07/07 1300 0932 Clobetasol Propionate 1 AYAAN BID 07/03 220 AC 07/06 TOP 0132 Cyanocobalamin 1,000 MCG DAILY 07/04 1000 AC 07/05 PO 0932 Diclofenac Sodium 1 AYAAN 4 TIMES/DAY 07/03 1800 AC 07/06 TOP 0017 Haloperidol 2 MG Q12P PRN 07/05 2045 AC 07/05 IM 210 Heparin Sodium 5,000 UNIT Q8 07/03 2199 AC 07/06 (Porcine) SC 0608 Levothyroxine Sodium 0.125 MG DAILY AC 07/06 0700 AC 07/06 PO 0609 Levothyroxine Sodium 0.1 MG DAILY AC 07/04 0700 DC 07/05 PO 0613 Melatonin 10 MG AT BEDTIME 07/040 AC 07/05 PO 2051 Silver Sulfadiazine 1 AYAAN DAILY 07/04 1000 AC 07/05 TOP 0934 Trazodone HCl 25 MG AT BEDTIME 07/03 2199 AC 07/05 PO 2051 Assessment/Plan Assessment: Patient is a 89-year-old male with multiple medical problems, significant including previous episodes of delirium and agitation requiring hospitalization, presented with acute delirium and belligerent behavior. Plan Admitted to general medicine floor Acute delirium/agitation/belligerent behavior * Ruled out electrolyte imbalances, infectious causes, acute intracranial pathology * Possibly secondary to general deconditioning/sleep deprivation/new surroundings in nursing facitlity. * Discontinued risperidone, Avoid benzos, opiates. * Haldol 2mg Q12 prn as needed for agitation * Sitter in place, try to avoid physical restraints. * ESR - 70, [place] titer postive (will evaluate whether acute/chronic), TSH elevated. * Psych consult - appreciate their recommendations. History of Serratia marcescens bacteremia * Possible source being skin, has been on ciprofloxacin 500 daily - completed by History of hypothyroidism * Increased levothyroxine dose increased to 125mcg/day. * TSH, free T4 are 9.6, 1.3. TSH doubled from previous reading. DVT prophylaxis * Subcutaneous heparin 5000 3 times a day CODE STATUS * DNR/DNI Problem List: 1. Dementia 2. Acute delirium 3. Agitation Pain Ratin Pain Location: n/a Pain Goal: Pain 4 or less Pain Plan: tylenol prn Tomorrow's Labs & Rationales: none XU WALKER,CRISTIANO 07/06/16 1219: Attending MD Review Statement Attending Statement Attending MD Statement: examined this patient, discuss w/resident/PA/CRM ADMINISTRATOR, agreed w/resident/PA/CRM ADMINISTRATOR, reviewed EMR data (avail), discussed with nursing, discussed with case mgmt, amended to note Attending Assessment/Plan: Patient seen and examined. Resting comfortably and not in any acute distress. Family present at the bedside. Apparently overnight he was mildly agitated and required a dose of Haldol. Since then he has been doing well. Family does admit that his behavioral changes are mostly due to change in environment. She however is not happy with the last halfway he was discharged 2. She would like patient to be discharged to a different [facility] facility. Problems: 1. Acute confusional state/delirium; resolved 2. Recent Seraratia bacteremia 3. Hypothyroidism 4. Resolving lower extremity cellulitis 5. Chronic kidney disease stage IV: Stable. Recommendations: - Synthroid dose has been adjusted based on his abnormal TSH level. Levels should be repeated in 6-8 weeks. -Continue supportive care. Continue redirection as needed. -Complete course of antibiotic therapy for his recent bacteremia. -Awaiting placement in a [facility] facility.
[2016-07-06 14:23] VITALS: BP 100/60
--- NOTE | 2016-07-06 15:53 | PN- Psychiatry ---
Assessment/Plan Impression: Identifying Info: 89-year-old male presents to [facility] emergency department on 07/03/2016 for increasing combative behavior at home. The patient was admitted to medicine to rule out delirium. SUBJECTIVE "Not bad" Spoke to Ceci the patient's [id number] said reports that the patient was "off the wall"when he was discharged from his previous placement. She feels that his behaviors there and at home have been related to poor pain control. Brief ROS Gait: Unsteady per report Sleep: Interrupted Appetite: Adequate OBJECTIVE Mental Status Exam Presentation/Appearance: Minimally cooperative with evalution. Calm, sitting in chair, reading newspaper Orientation: Oriented to self Sensorium: Awake and alert Eye contact: Appropriate Affect: Constricted Mood: "Not bad" Depression: Denies Anxiety: Denies Thought Content: - GAVI Thought Process: Confused at times, on interview perseveration on having [id number] change his dressings Associations: GAVI Speech: Repetitive Judgment: Poor Insight: Poor Cognition: Memory: Deficits on previous interview Attention/Concentration: Impaired Fund of Knowledge: Impaired on previous interview Abstractions: Did not assess MMSE: Did not assess Per nursing report the patient became combative overnight as yelling and spitting. He required when necessary Haldol which had positive effect. Today the patient has been intermittently irritable and agitated. He has been redirectable. He is complained of pain but declined when necessary medication as well as his scheduled 2 PM medication. He has been verbally aggressive and impulsive. Patient refused physical therapy this morning. ASSESSMENT 89-year-old male presents with alterations in mental status for a few weeks. By report it appears at baseline he does have neurocognitive deficits but combativeness has become problematic over the past several weeks. At present potential causes of acute confusional state are being ruled out. Differential diagnosis Rule out delirium due to unknown etiology Rule out unspecified neurocognitive disorder Suggestion: 1. If patient behavior continues to be erratic and impulsive he may require a sitter for safety. 2. Please utilize when necessary medication for agitation. Consider increasing Haldol dosing to Q8H when necessary if patient behavior warrants it. 3. The patient's sleep remains poor consider replacing melatonin and trazodone with Rozerem 8 mg daily at bedtime. 4. Consider ruling out hyperammonemia. 5. If delirium is ruled out patient may require a memory care vs geriatric psychiatry. Thank you for including psychiatry in this case we'll continue to follow. Subjective Subjective: as above Objective Last 24 Hrs of Vital Signs/I&O Current Medications Sig/Bennie Start time Last Medication Dose Route Stop Time Status Admin Acetaminophen 650 MG Q8 07/03 2200 AC 07/06 PO 1552 Cholecalciferol 2,000 IU DAILY 07/04 1000 AC 07/06 PO 1003 Ciprofloxacin 500 MG Q24 07/04 1000 AC 07/06 PO 07/07 1300 1003 Clobetasol Propionate 1 AYAAN BID 07/03 2200 AC 07/06 TOP 1003 Cyanocobalamin 1,000 MCG DAILY 07/04 1000 AC 07/06 PO 1003 Diclofenac Sodium 1 AYAAN 4 TIMES/DAY 07/03 1800 AC 07/06 TOP 1552 Haloperidol 2 MG Q12P PRN 07/05 204 AC 07/05 IM 2102 Heparin Sodium 5,000 UNIT Q8 07/03 2199 AC 07/06 (Porcine) SC 0608 Levothyroxine Sodium 0.125 MG DAILY AC 07/06 0700 AC 07/06 PO 0609 Melatonin 10 MG AT BEDTIME 07/04 2200 AC 07/05 PO 2051 Silver Sulfadiazine 1 AYAAN DAILY 07/04 1000 AC 07/06 TOP 1003 Trazodone HCl 25 MG AT BEDTIME 07/03 2199 AC 07/05 PO 2051 Laboratory Tests 07/05/16 0636: ESR Westergren 70 H, RPR Titer/FTA NONREACTIVE, Lyme Disease Antibody 1.06 *H 07/05/16 0600: Lyme Ab (Western Blot) Pending, Lyme IgG 18 kDa Band Pending, Lyme IgG 23 kDa Band Pending, Lyme IgG 28 kDa Band Pending, Lyme IgG 30 kDa Band Pending, Lyme IgG 39 kDa Band Pending, Lyme IgG 41 kDa Band Pending, Lyme IgG 45 kDa Band Pending, Lyme IgG 58 kDa Band Pending, Lyme IgG 66 kDa Band Pending, Lyme IgG 93 kDa Band Pending, Lyme IgM (Western Blot) Pending, Lyme IgM 23 kDa Band Pending, Lyme IgM 39 kDa Band Pending, Lyme IgM 41 kDa Band Pending 07/04/16 0709: Anion Gap 11, Estimated GFR 26 L, BUN/Creatinine Ratio 21.3, Vitamin B12 > 1000 H, Folate 10.0, TSH 9.600 H, Free T4 1.31, CBC w Diff NO MAN DIFF REQ, RBC 3.19 L, MCV 80.9, MCH 25.8 L, RDW 20.6 H, MPV 6.0 L, Gran % 87.7 H, Lymphocytes % 3.9 L, Monocytes % 5.7, Eosinophils % 2.4, Basophils % 0.3, Absolute Granulocytes 6.3, Absolute Lymphocytes 0.3 L, Absolute Monocytes 0.4, Absolute Eosinophils 0.2, Absolute Basophils 0, PUBS MCHC 31.9 L Vital Signs Date Time Temp Pulse Resp B/P B/P Pulse O2 O2 Flow FiO2 Mean Ox Delivery Rate 07/06 1513 Room Air 07/06 1423 98.0 60 20 100/60 96 Room Air 07/06 0546 98.9 72 20 100/64 96 Room Air 07/05 2242 97.9 80 20 100/60 95 Room Air Intake & Output 07/06 1600 07/06 0800 07/06 0000 Intake Total 240 240 Output Total 200 400 300 Balance -200 -160 -60 Intake, Oral 240 240 Number 1 1 0 Bowel Movements Output, Urine 200 400 300
[2016-07-06 22:22] VITALS: BP 120/64
[2016-07-07 06:35] VITALS: BP 126/84
--- NOTE | 2016-07-07 08:33 | PN- Housestaff ---
LANDON WALKER,FRANCISCO 07/07/16 0809: Subjective Follow-up For: Delirium Subjective: I saw the patient today morning. He is asleep, just woke up. He is not oriented, thinking its early in the morning. Reports he needs to leave tomorrow. Overnight no issues, didnt receive any haldol. Review of Systems Constitutional: Reports: see HPI. Comments: ROS negative except the above. Objective Last 24 Hrs of Vital Signs/I&O Vital Signs Date Time Temp Pulse Resp B/P B/P Pulse O2 O2 Flow FiO2 Mean Ox Delivery Rate 07/07 0635 96.7 84 20 126/84 97 07/06 2222 97.7 69 16 120/64 95 Room Air 07/06 1513 Room Air 07/06 1423 98.0 60 20 100/60 96 Room Air Intake & Output 07/07 1600 07/07 0800 07/07 0000 Intake Total 240 340 Output Total 375 100 Balance -135 240 Intake, Oral 240 340 Output, Urine 375 100 Physical Exam General Appearance: Alert, Oriented X3, Cooperative Skin: No Rashes, No Breakdown, rashes around both the extremities are healing. HEENT: Atraumatic, PERRLA, EOMI Neck: Supple Cardiovascular: Normal S1, Normal S2 Lungs: Clear to Auscultation, Normal Air Movement Abdomen: Normal Bowel Sounds, Soft, No Tenderness Neurological: Normal Tone, Sensation Intact, Cranial Nerves 3-12 NL Extremities: No Clubbing, No Cyanosis Current Medications: Current Medications Sig/Bennie Start time Last Medication Dose Route Stop Time Status Admin Acetaminophen 650 MG Q8 07/03 2199 AC 07/07 PO 0626 Cholecalciferol 2,000 IU DAILY 07/04 1000 AC 07/06 PO 1003 Ciprofloxacin 500 MG Q24 07/04 1000 AC 07/06 PO 07/07 1300 1003 Clobetasol Propionate 1 AYAAN BID 07/03 2200 AC 07/06 TOP 212 Cyanocobalamin 1,000 MCG DAILY 07/04 1000 AC 07/06 PO 1003 Diclofenac Sodium 1 AYAAN 4 TIMES/DAY 07/03 1800 AC 07/06 TOP 2124 Haloperidol 2 MG Q8P PRN 07/06 1700 AC IM Haloperidol 2 MG Q12P PRN 07/05 2045 DC 07/05 IM 210 Heparin Sodium 5,000 UNIT Q8 07/03 220 AC 07/06 (Porcine) SC 0608 Levothyroxine Sodium 0.125 MG DAILY AC 07/06 0700 AC 07/07 PO 06 Melatonin 10 MG AT BEDTIME 07/04 2200 DC 07/05 PO 2051 Ramelteon 8 MG AT BEDTIME 07/06 2200 AC 07/06 PO 2117 Silver Sulfadiazine 1 AYAAN DAILY 07/04 1000 AC 07/06 TOP 1003 Trazodone HCl 12.5 MG ONE TIME ONE 07/04 1430 CAN PO 07/04 1431 Trazodone HCl 25 MG AT BEDTIME 07/030 DC 07/05 PO 2051 Assessment/Plan Assessment: Patient is a 89-year-old male with multiple medical problems, significant including previous episodes of delirium and agitation requiring hospitalization, presented with acute delirium and belligerent behavior. Plan Admitted to general medicine floor Acute delirium/agitation/belligerent behavior * Ruled out electrolyte imbalances, infectious causes, acute intracranial pathology * Possibly secondary to general deconditioning/sleep deprivation/new surroundings in nursing facitlity. * Discontinued risperidone, Avoid benzos, opiates. * Haldol 2mg Q8 prn as needed for agitation, started on rozeram at night to sleep. * Sitter in place, try to avoid physical restraints. * ESR - 70, [place] titer postive (will evaluate whether acute/chronic), TSH elevated. * Psych consult - appreciate their recommendations. awaiting placement History of Serratia marcescens bacteremia * Possible source being skin, has been on ciprofloxacin 500 daily - completed by History of hypothyroidism * Increased levothyroxine dose increased to 125mcg/day. * TSH, free T4 are 9.6, 1.3. TSH doubled from previous reading. DVT prophylaxis * Subcutaneous heparin 5000 3 times a day CODE STATUS * DNR/DNI Problem List: 1. Dementia 2. 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 We are medically managing the agitation and delerious behavior while awaiting placement in a facility that can manage this. The positive Lyme antibody is really ordered. I'm unclear whether this is a false-positive of this is reflective of an old Lyme disease and will probably need IDs help figuring it out. I'm unclear as to why the Lyme titer was checked but will follow-up.
[2016-07-07 14:34] VITALS: BP 117/62
[2016-07-07 21:58] VITALS: BP 110/58
[2016-07-08 06:38] VITALS: BP 116/68
--- NOTE | 2016-07-08 08:23 | PN- Housestaff ---
LANDON WALKER,FRANCISCO 07/08/16 0822: Subjective Follow-up For: Delirium Subjective: I saw and examined the patient today morning He is doing much better, no overnight issues. Looking much better today, able to make conversations. Looking forward to go to family ceremony today. Review of Systems Constitutional: Reports: see HPI. Comments: ROS negative except the above. Objective Last 24 Hrs of Vital Signs/I&O Vital Signs Date Time Temp Pulse Resp B/P B/P Pulse O2 O2 Flow FiO2 Mean Ox Delivery Rate 07/08 0638 97.4 60 20 116/68 98 07/07 2158 98.1 70 20 110/58 94 Room Air 07/07 1434 97.5 88 20 117/62 96 Intake & Output 07/08 1600 07/08 0800 07/08 0000 Intake Total 240 480 Output Total 200 200 Balance 40 280 Intake, Oral 240 480 Output, Urine 200 200 Physical Exam General Appearance: Alert, Oriented X3, Cooperative, No Acute Distress Skin: No Rashes, No Breakdown, resolving lesions on bother upper and lower extremities HEENT: Atraumatic, PERRLA, EOMI Neck: Supple, No JVD Cardiovascular: Normal S1, Normal S2 Current Medications: Current Medications Sig/Bennie Start time Last Medication Dose Route Stop Time Status Admin Acetaminophen 650 MG Q8 07/030 AC 07/07 PO 2115 Cholecalciferol 2,000 IU DAILY 07/04 1000 AC 07/07 PO 1009 Ciprofloxacin 500 MG Q24 07/04 1000 DC 07/07 PO 07/07 1300 1009 Clobetasol Propionate 1 AYAAN BID 07/03 2200 AC 07/07 TOP 2116 Cyanocobalamin 1,000 MCG DAILY 07/04 1000 AC 07/07 PO 1009 Diclofenac Sodium 1 AYAAN 4 TIMES/DAY 07/03 1800 AC 07/06 TOP 2124 Haloperidol 2 MG Q8P PRN 07/06 1700 AC IM Heparin Sodium 5,000 UNIT Q8 07/03 2199 AC 07/06 (Porcine) SC 0608 Levothyroxine Sodium 0.125 MG DAILY AC 07/06 0700 AC 07/08 PO 0611 Ramelteon 8 MG AT BEDTIME 07/06 2200 AC 07/07 PO 2115 Silver Sulfadiazine 1 AYAAN DAILY 07/04 1000 AC 07/07 TOP 1010 Assessment/Plan Assessment: Patient is a 89-year-old male with multiple medical problems, significant including previous episodes of delirium and agitation requiring hospitalization, presented with acute delirium and belligerent behavior. Plan Admitted to general medicine floor Acute delirium/agitation/belligerent behavior * Ruled out electrolyte imbalances, infectious causes, acute intracranial pathology * Possibly secondary to general deconditioning/sleep deprivation/new surroundings in nursing facitlity. * Discontinued risperidone, Avoid benzos, opiates. * Appears much better today and discharged with home health services * he needs further evaluation of his positive lyme titers as an outpatient. History of Serratia marcescens bacteremia * Completed antibiotic course. History of hypothyroidism * Increased levothyroxine dose increased to 125mcg/day. * TSH, free T4 are 9.6, 1.3. TSH doubled from previous reading. * Needs repeat TSH measurement at 6-8weeks. DVT prophylaxis * Subcutaneous heparin 5000 3 times a day CODE STATUS * DNR/DNI Problem List: 1. Dementia 2. Acute delirium 3. Altered mental status 4. Atrial fibrillation Pain Ratin Pain Location: n/a Pain Goal: Pain 4 or less Pain Plan: tylneol prn Tomorrow's Labs & Rationales: none MARZENA WALKER,KIRK 07/08/16 1057: Attending MD Review Statement Attending Statement Attending MD Statement: examined this patient, discuss w/resident/PA/PILLOWCASE SEWER, agreed w/resident/PA/PILLOWCASE SEWER, reviewed images Attending Assessment/Plan: No apparent agitation overnight. Underlying bullous pemphigoid and CKD with delerium just finishing a course of by mouth antibiotics for Serratia bacteremia. Plan is ID eval in a.m. to see if this Lyme titer is clinically relevant and whether that could be contributing to the delirium. STR placement in process.
--- NOTE | 2016-07-08 12:22 | Event Note ---
Event Note Event Note: Situation: This is an 89 years old gentleman who has been admitted since July 03 when he presented with acute delirium. The patient mental status has improved. However, the patient gait was unsteady with poor coordination and because of that PT had recommended STR placement. Today 07/08/2016 at around 11 AM the daughter of the patient Phuong called requesting that the patient be discharged home so that he can attend a special family [facility]. I spoke with physical therapist Raquel who told me that despite the writing STR recommendation yesterday she feels that the patient has improved has good coordination and for that case is safe to be discharged home. Sentiment of improvement was also corroborated by the nurse of the patient Ms Salinas. Personally updated supervisor case loading Jada and discharged the patient
== END 2016-07-08 13:00 | disposition home health service (06) | DRG 880 ==
LOC: ERH 11:10 → ERHI 07-03 13:58 → 2NB 07-03 13:58 → ENRESERV 07-03 14:34 → ENTRNSPT 07-03 15:51 → EDTRNSPTTYP 07-03 16:11 → EDTRNSPT 07-03 16:11 → 2NB 07-03 16:19 → EDTRNSPTSTS 07-03 16:31 → EDTRNSPTTYP 07-03 16:51 → CMPTRNSPT 07-03 16:53 → 2NB 07-03 19:13
PROVIDERS: Emergency Medicine; Preventive Medicine Public Health & General Preventive Medicine; ADMIT Internal Medicine
DX: F05 Delirium due to known physiological condition (principal); R78.81 Bacteremia; N18.4 Chronic kidney disease, stage 4 (severe); L97.919 Non-pressure chronic ulcer of unspecified part of right lower leg with unspecified severity; I13.0 Hypertensive heart and chronic kidney disease with heart failure and stage 1 through stage 4 chronic kidney disease, or unspecified chronic kidney disease; L97.929 Non-pressure chronic ulcer of unspecified part of left lower leg with unspecified severity; I50.32 Chronic diastolic (congestive) heart failure; E88.09 Other disorders of plasma-protein metabolism, not elsewhere classified; L12.0 Bullous pemphigoid; E78.5 Hyperlipidemia, unspecified; E03.9 Hypothyroidism, unspecified; I87.2 Venous insufficiency (chronic) (peripheral)
CPT/HCPCS: 2NBP; 86618; 36415; 80307; 81001; 82436; 87086; 93005; 93010; 96372; 97116-GO; 97161-GP; 97530-GO; J1630; J1644; J3490